=== PATIENT | female | born 1950 | race Hispanic/Latino ===

== ENCOUNTER 2020-05-13 20:21 | Inpatient (IN) | payer MEDICARE ==
[2020-05-13] MEDS ORDERED: SODIUM CHLORIDE 0.9% 1000 ML IV SOLN IV ONE (23:22)
[2020-05-13] MEDS ORDERED: metroNIDAZOLE/NS 500 MG/100 ML 500 MG/100 ML BAG IV ONE (23:23)
--- NOTE | 2020-05-13 23:25 | Emergency Department Report ---
ED Abdominal Pain HPI - General Chief Complaint: Nausea/Vomiting/Diarrhea Stated Complaint: DIARRHEA/BILATERAL LEG WEAKNESS PUI?: No Time Seen by Provider: 05/13/20 23:21 Source: patient Mode of arrival: Ambulatory Limitations: No Limitations - History of Present Illness Initial Comments: Patient is a 69-year-old female that presents emergency room with complaints of abdominal pain and diarrhea x4 weeks. Patient states her symptoms are worsening. Patient states 2 weeks ago she called her primary care he told her to take Imodium. Patient states the Imodium had no changes. Patient denies blood in her stool. Patient denies nausea vomiting. Patient states her abdominal pain is a 10 out of 10. Patient states the abdominal pain is generalized and nonradiating. Patient states the abdominal pain is worse with movement better with rest. Patient denies fever and chills. Patient denies chest pain or shortness of breath. Patient denies recent travel. Patient denies recent international travel. Patient denies exposure to the novel coronavirus. Patient denies sick contacts. Patient denies fever and chills. Patient denies cough. Patient denies coming in contact with anybody with symptoms of the novel coronavirus. MD Complaint: abdominal pain -: Sudden Location: diffuse Radiation: none Migration to: no migration Severity: severe Severity scale (0 -10): 10 Quality: stabbing Consistency: constant Improves With: rest Worsens With: movement Associated Symptoms: diarrhea. denies: nausea, vomiting, fever, chills, constipation, dysuria, hematemesis, hematochezia, melena, hematuria, syncope Treatments Prior to Arrival: other - Related Data LMP (females 10-50): unknown Allergies Allergy/AdvReac Type Severity Reaction Status Date / Time morphine Allergy Itching Verified 05/13/20 22:58 Penicillins Allergy Hives Verified 05/13/20 22:58 ED Review of Systems ROS: Stated complaint: DIARRHEA/BILATERAL LEG WEAKNESS Other details as noted in HPI Constitutional: denies: chills, fever Eyes: denies: eye pain, eye discharge, vision change ENT: denies: ear pain, throat pain Respiratory: denies: cough, shortness of breath, wheezing Cardiovascular: denies: chest pain, palpitations Endocrine: no symptoms reported Gastrointestinal: abdominal pain, diarrhea. denies: nausea, vomiting Genitourinary: denies: urgency, dysuria, discharge Musculoskeletal: denies: back pain, joint swelling, arthralgia Skin: denies: rash, lesions Neurological: denies: headache, weakness, paresthesias Psychiatric: denies: anxiety, depression Hematological/Lymphatic: denies: easy bleeding, easy bruising ED Past Medical Hx - Past Medical History Previous Medical History?: Yes Hx Hypertension: Yes Hx Diabetes: Yes Additional medical history: High cholesterol - Surgical History Past Surgical History?: No - Family History Family history: no significant - Social History Smoking Status: Former Smoker Substance Use Type: None ED Physical Exam - General Limitations: No Limitations General appearance: alert, in no apparent distress - Head Head exam: Present: atraumatic, normocephalic - Eye Eye exam: Present: normal appearance - ENT ENT exam: Present: mucous membranes moist - Neck Neck exam: Present: normal inspection - Respiratory Respiratory exam: Present: normal lung sounds bilaterally. Absent: respiratory distress - Cardiovascular Cardiovascular Exam: Present: regular rate, normal rhythm. Absent: systolic murmur, diastolic murmur, rubs, gallop - GI/Abdominal GI/Abdominal exam: Present: soft, tenderness, normal bowel sounds - Extremities Exam Extremities exam: Present: normal inspection - Back Exam Back exam: Present: normal inspection - Neurological Exam Neurological exam: Present: alert, oriented X3 - Psychiatric Psychiatric exam: Present: normal affect, normal mood - Skin Skin exam: Present: warm, dry, intact, normal color. Absent: rash ED Course Vital Signs 05/13/20 05/13/20 05/13/20 22:54 23:11 23:15 Temperature 98.7 F Pulse Rate 91 H 93 H Respiratory 18 23 Rate Blood Pressure 77/45 94/50 94/49 O2 Sat by Pulse 95 87 97 Oximetry 05/13/20 05/13/20 05/13/20 23:17 23:30 23:45 Temperature Pulse Rate 96 H 91 H 90 Respiratory 20 23 25 H Rate Blood Pressure 94/49 94/49 113/53 O2 Sat by Pulse 99 98 98 Oximetry 05/14/20 05/14/20 05/14/20 00:00 00:15 00:30 Temperature Pulse Rate 95 H 93 H 96 H Respiratory 22 23 21 Rate Blood Pressure 126/60 121/56 134/66 O2 Sat by Pulse 98 99 96 Oximetry 05/14/20 00:45 Temperature Pulse Rate 95 H Respiratory 23 Rate Blood Pressure 131/68 O2 Sat by Pulse 99 Oximetry - Reevaluation(s) Reevaluation #1: Blood pressure rechecked and is still low. Sepsis protocol ordered. Patient will be given empiric antibiotics and fluids. 05/13/20 23:33 Reevaluation #2: Blood pressure has improved. Patient states he is feeling a little bit better. 05/14/20 00:01 Reevaluation #3: Patient is still receiving fluid in the bases blood pressure has stabilized. Patient complaining of a headache. Patient was given a low-dose of Dilaudid. 05/14/20 00:34 Reevaluation #4: Patient states her pain has resolved. Patient states her headache is resolved. Patient's blood pressure better. Patient's blood pressure has dramatically improved. Patient still on cardiac care nurse. I discussed all results with patient. I discussed plan of care with patient. Patient agrees with plan of care and admission. Patient to be admitted to the hospitalist service. 05/14/20 01:49 - Consultations Consultation #1: Hospitalist consulted for admission. Hospitalist to admit patient. 05/14/20 01:50 ED Medical Decision Making - Lab Data Result diagrams: 05/13/20 23:18 05/13/20 23:18 - Radiology Data Radiology results: report reviewed - Medical Decision Making Patient is a 69-year-old female who presents emergency room with complaints of abdominal pain and diarrhea for 4 weeks. Patient found to be hypotensive. After initial evaluation and patient was found to be hypotensive, the patient had a sepsis protocol initiated. Patient given prophylactic antibiotics and fluids. Patient given fluids and her blood pressure improved. Patient given Dilaudid for pain once her blood pressure improved. Patient's pain was controlled with Dilaudid. Patient responded well to fluids and antibiotics. Patient had a CT scan which showed colitis. Patient had labs done which were consistent with acute renal failure and elevated WBC. Patient admitted to the hospital service for further evaluation treatment. - Differential Diagnosis Diverticulitis, abdominal pain, renal failure/sepsis, hypotension, diarrhea Critical Care Time: Yes Critical care time in (mins) excluding proc time.: 45 Critical care attestation.: If time is entered above; I have spent that time in minutes in the direct care of this critically ill patient, excluding procedure time. Critical Care Time: 45 MINUTES ED Disposition Clinical Impression: Dehydration, Lactic acid acidosis, Colitis Renal failure Qualifiers: Renal failure chronicity: acute Acute renal failure type: unspecified Qualified Code(s): N17.9 - Acute kidney failure, unspecified Abdominal pain Qualifiers: Abdominal location: generalized Qualified Code(s): R10.84 - Generalized abdominal pain Sepsis Qualifiers: Sepsis type: sepsis due to unspecified organism Sepsis acute organ dysfunction status: with acute organ dysfunction Severe sepsis acute organ dysfunction type: acute renal failure Acute renal failure type: unspecified Severe sepsis shock status: without septic shock Qualified Code(s): A41.9 - Sepsis, unspecified organism Diarrhea Qualifiers: Diarrhea type: unspecified type Qualified Code(s): R19.7 - Diarrhea, unspecified Hypotension Qualifiers: Hypotension type: unspecified hypotension type Qualified Code(s): I95.9 - Hypotension, unspecified Disposition: DC-09 OP ADMIT IP TO THIS HOSP Is pt being admited?: Yes Does the pt Need Aspirin: No Condition: Critical Time of Disposition: 01:59
[2020-05-13 23:46] LABS: Hematocrit 35.9 % (30.3-42.9); Hemoglobin 11.8 gm/dl (10.1-14.3); Mean Corpuscular HGB Conc 33 % (30-34); Mean Corpuscular Volume 91 fl (79-97); Platelet Count 269 K/mm3 (140-440); Red Blood Count 3.95 M/mm3 (3.65-5.03); Red Cell Distribution Width 14.3 % (13.2-15.2)
[2020-05-13 23:51] LABS: Basophils % (Auto) 0.1 % (0.0-1.8); Eosinophils # (Auto) 0.3 K/mm3 (0.0-0.4); Eosinophils % (Auto) 1.1 % (0.0-4.3); Lymphocytes # (Auto) 2.4 K/mm3 (1.2-5.4); Lymphocytes % (Auto) 7.8 % (13.4-35.0); Monocytes % (Auto) 6.5 % (0.0-7.3)
[2020-05-14 00:01] LABS: Albumin 3.1 g/dL (3.9-5); Calcium 8.7 mg/dL (8.4-10.2)
[2020-05-14] MEDS ORDERED: HYDROmorphone 1 MG/1 ML INJ IV ONE ×3 (00:34→23:11)
[2020-05-14] MEDS ORDERED: ONDANSETRON 4 MG/2 ML INJ ONE (00:46)
[2020-05-14] MEDS ORDERED: ONDANSETRON 4 MG/2 ML INJ IV ONE (00:48)
--- NOTE | 2020-05-14 01:38 | Cat Scan Report ---
CT abdomen pelvis wo con INDICATION: Patient complains of abdominal pain and diarrhea.. TECHNIQUE: All CT scans at this location are performed using the following dose modulation technique: Automated exposure control. Helical slices were obtained through the abdomen and pelvis. No contrast is adminis tered. COMPARISON: None available. FINDINGS: Abdomen: No acute abnormality is seen in the lower chest. The liver, spleen, pancreas, adrenal glands , and kidneys show no acute abnormality. There is cholelithiasis. There is abnormal wall thickening noted from the splenic flexure of the colon to the rectum character istic of colitis. There is mild pericolonic inflammation. There is no abscess. There is no free air. Atherosclerotic calcifications are noted in the aorta and iliac arteries. Pelvis: Phleboliths are noted. The urinary bladder is distended. There are no abnormal fluid collecti ons. On review of bone windows, no acute osseous abnormalities are seen. IMPRESSION: 1. There is colitis from the splenic flexure to the rectum. Signer Name: Manfred Dela Cruz MD Signed: 05/14/2020 1:34 AM Workstation Name: [id number]
[2020-05-14] MEDS ORDERED: SODIUM CHLORIDE 0.9% 1000 ML 1,000 ML IV ONE ×2 (02:09→02:29)
[2020-05-14 02:21] LABS: Bilirubin,Urine NEG (Negative); Blood,Urine SM (Negative); Color,Urine Yellow (Yellow); Hyaline Casts,Urine 1 /LPF; Mucus,Urine FEW /HPF; Protein,Urine <15 mg/dL mg/dL (Negative); Urobilinogen,Urine < 2.0 mg/dL (<2.0); WBC,Urine < 1.0 /HPF (0.0-6.0)
[2020-05-14] MEDS ORDERED: DEXTROSE 50% IN WATER (25GM) 50 ML SYRINGE IV PRN (02:37)
[2020-05-14] MEDS ORDERED: SODIUM CHLORIDE 0.9% 1000 ML 1,000 ML IV SCH (02:45)
--- NOTE | 2020-05-14 02:49 | History and Physical Report ---
History of Present Illness Date of examination: 05/14/20 Date of admission: 05/14/2020 Chief complaint: Abdominal pain Diarrhea History of present illness: 69-year-old female presenting to the emergency room today complaining of abdominal pain and diarrhea that has been ongoing for about 4 weeks. Stool is nonbloody. She denies any nausea vomiting. No chest pain or shortness of breath and no headaches or dizziness. Patient denies using any antibiotics over the past few weeks. She got in touch with her primary care physician who recommended she should take some Imodium about 2 weeks ago. Patient indicates symptoms are gotten worse over the past few days. She has been having intermittent low-grade fever at home. Patient denies any sick contacts and no recent travel, she denies contact with anyone with COVID-19. She was found to be slightly hypotensive upon arrival in the emergency room. Work-up in the emergency room today including CT scan of the abdomen and pelvis reveals colitis, labs reveals leukocytosis of about 30. Lactic acid was also found to be elevated. Patient has been started on empiric IV antibiotics and IV fluid. Past History Past Medical History: diabetes, hypertension Past Surgical History: No surgical history Social history: smoking (Former smoker) Family history: no significant family history Medications and Allergies Allergies Allergy/AdvReac Type Severity Reaction Status Date / Time morphine Allergy Itching Verified 05/13/20 22:58 Penicillins Allergy Hives Verified 05/13/20 22:58 Active Meds: Active Medications Acetaminophen (Tylenol) 650 mg PO Q4H PRN PRN Reason: Pain MILD(1-3)/Fever >100.5/CORDOVA Dextrose (D50w (25gm) Syringe) 50 ml IV Q30MIN PRN; Protocol PRN Reason: Hypoglycemia Sodium Chloride (Nacl 0.9% 1000 Ml) 1,000 mls @ 999 mls/hr IV BOLUS ONE Stop: 05/14/20 03:09 Sodium Chloride (Nacl 0.9% 1000 Ml) 1,000 mls @ 250 mls/hr IV ONCE ONE Stop: 05/14/20 06:28 Sodium Chloride (Nacl 0.9% 1000 Ml) 1,000 mls @ 125 mls/hr IV DIRECT GINI Levofloxacin/Dextrose (Levaquin 750mg/150ml) 750 mg in 150 mls @ 100 mls/hr IV Q24HR GINI; Protocol Metronidazole (Flagyl 500 Mg/100 Ml) 500 mg in 100 mls @ 100 mls/hr IV Q8HR GINI; Protocol Insulin Human Lispro (Humalog) 0 unit SUB-Q ACHS GINI; Protocol Ondansetron HCl (Zofran) 4 mg IV Q8H PRN PRN Reason: Nausea And Vomiting Sodium Chloride (Sodium Chloride Flush Syringe 10 Ml) 10 ml IV BID GINI Sodium Chloride (Sodium Chloride Flush Syringe 10 Ml) 10 ml IV PRN PRN PRN Reason: LINE FLUSH Review of Systems Constitutional: fever, no chills Ears, nose, mouth and throat: no nasal congestion, no sore throat Cardiovascular: no chest pain, no palpitations Respiratory: no cough, no shortness of breath Gastrointestinal: abdominal pain, diarrhea, no nausea, no vomiting Genitourinary Female: no pelvic pain, no flank pain, no dysuria, no hematuria Musculoskeletal: no neck pain, no low back pain Integumentary: no rash, no pruritis Neurological: no headaches, no confusion Psychiatric: no anxiety, no depression Exam - Constitutional Vitals: Temp Pulse Resp BP Pulse Ox 98.7 F 95 H 23 131/68 99 05/13/20 22:54 05/14/20 00:45 05/14/20 00:45 05/14/20 00:45 05/14/20 00:45 General appearance: Present: no acute distress, well-nourished - EENT Eyes: Present: PERRL, EOM intact. Absent: scleral icterus ENT: hearing intact, clear oral mucosa, dentition normal - Neck Neck: Present: supple, normal ROM - Respiratory Respiratory effort: normal Respiratory: bilateral: CTA - Cardiovascular Rhythm: regular Heart Sounds: Present: S1 & S2. Absent: gallop, systolic murmur, diastolic murmur, rub - Extremities Extremities: no ischemia, pulses intact, pulses symmetrical, No edema, Full ROM Peripheral Pulses: within normal limits - Abdominal General gastrointestinal: Present: soft, non-tender, non-distended, normal bowel sounds. Absent: mass - Integumentary Integumentary: Present: clear, warm, dry. Absent: rash - Musculoskeletal Musculoskeletal: strength equal bilaterally - Psychiatric Psychiatric: appropriate mood/affect, intact judgment & insight, memory intact, cooperative - Neurologic Neurologic: CNII-XII intact, no focal deficits, moves all extremities HEART Score - HEART Score Troponin: WBC 30.6 K/mm3 (4.5-11.0) H 05/13/20 23:18 RBC 3.95 M/mm3 (3.65-5.03) 05/13/20 23:18 Hgb 11.8 gm/dl (10.1-14.3) 05/13/20 23:18 Hct 35.9 % (30.3-42.9) 05/13/20 23:18 MCV 91 fl (79-97) 05/13/20 23:18 MCH 30 pg (28-32) 05/13/20 23:18 MCHC 33 % (30-34) 05/13/20 23:18 RDW 14.3 % (13.2-15.2) 05/13/20 23:18 Plt Count 269 K/mm3 (140-440) 05/13/20 23:18 Lymph % (Auto) 7.8 % (13.4-35.0) L 05/13/20 23:18 Hinds % (Auto) 6.5 % (0.0-7.3) 05/13/20 23:18 Eos % (Auto) 1.1 % (0.0-4.3) 05/13/20 23:18 Baso % (Auto) 0.1 % (0.0-1.8) 05/13/20 23:18 Lymph # (Auto) 2.4 K/mm3 (1.2-5.4) 05/13/20 23:18 Hinds # (Auto) 2.0 K/mm3 (0.0-0.8) H 05/13/20 23:18 Eos # (Auto) 0.3 K/mm3 (0.0-0.4) 05/13/20 23:18 Baso # (Auto) 0.0 K/mm3 (0.0-0.1) 05/13/20 23:18 Seg Neutrophils % 84.5 % (40.0-70.0) H 05/13/20 23:18 Seg Neutrophils # 25.9 K/mm3 (1.8-7.7) H 05/13/20 23:18 Sodium 125 mmol/L (137-145) L 05/13/20 23:18 Potassium 4.1 mmol/L (3.6-5.0) 05/13/20 23:18 Chloride 91.9 mmol/L (98-107) L 05/13/20 23:18 Carbon Dioxide 12 mmol/L (22-30) L 05/13/20 23:18 Anion Gap 25 mmol/L 05/13/20 23:18 BUN 63 mg/dL (7-17) H 05/13/20 23:18 Creatinine 3.3 mg/dL (0.6-1.2) H 05/13/20 23:18 Estimated GFR 14 ml/min 05/13/20 23:18 BUN/Creatinine Ratio 19 % 05/13/20 23:18 Glucose 261 mg/dL (65-100) H 05/13/20 23:18 Lactic Acid 2.40 mmol/L (0.7-2.0) H* 05/14/20 00:45 Calcium 8.7 mg/dL (8.4-10.2) 05/13/20 23:18 Total Bilirubin 0.30 mg/dL (0.1-1.2) 05/13/20 23:18 AST 49 units/L (5-40) H 05/13/20 23:18 ALT 19 units/L (7-56) 05/13/20 23:18 Alkaline Phosphatase 102 units/L (35-129) 05/13/20 23:18 Total Protein 6.6 g/dL (6.3-8.2) 05/13/20 23:18 Albumin 3.1 g/dL (3.9-5) L 05/13/20 23:18 Albumin/Globulin Ratio 0.9 % 05/13/20 23:18 Urine Color Yellow (Yellow) 05/14/20 02:08 Urine Turbidity Clear (Clear) 05/14/20 02:08 Urine pH 5.0 (5.0-7.0) 05/14/20 02:08 Ur Specific [place] 1.014 (1.003-1.030) 05/14/20 02:08 Urine Protein <15 mg/dl mg/dL (Negative) 05/14/20 02:08 Urine Glucose (UA) 50 mg/dL (Negative) 05/14/20 02:08 Urine Ketones Neg mg/dL (Negative) 05/14/20 02:08 Urine Blood Sm (Negative) 05/14/20 02:08 Urine Nitrite Neg (Negative) 05/14/20 02:08 Urine Bilirubin Neg (Negative) 05/14/20 02:08 Urine Urobilinogen < 2.0 mg/dL (<2.0) 05/14/20 02:08 Ur Leukocyte Esterase Neg (Negative) 05/14/20 02:08 Urine WBC (Auto) < 1.0 /HPF (0.0-6.0) 05/14/20 02:08 Urine RBC (Auto) 2.0 /HPF (0.0-6.0) 05/14/20 02:08 U Epithel Cells (Auto) < 1.0 /HPF (0-13.0) 05/14/20 02:08 Hyaline Casts 1 /LPF 05/14/20 02:08 Urine Mucus Few /HPF 05/14/20 02:08 Results - Labs CBC & Chem 7: 05/13/20 23:18 05/13/20 23:18 Labs: Abnormal lab results 05/13/20 05/13/20 05/13/20 Range/Units 23:18 23:18 23:25 WBC 30.6 H (4.5-11.0) K/mm3 Lymph % (Auto) 7.8 L (13.4-35.0) % Hinds # (Auto) 2.0 H (0.0-0.8) K/mm3 Seg Neutrophils % 84.5 H (40.0-70.0) % Seg Neutrophils # 25.9 H (1.8-7.7) K/mm3 Sodium 125 L (137-145) mmol/L Chloride 91.9 L (98-107) mmol/L Carbon Dioxide 12 L (22-30) mmol/L BUN 63 H (7-17) mg/dL Creatinine 3.3 H (0.6-1.2) mg/dL Glucose 261 H (65-100) mg/dL Lactic Acid 2.20 H* (0.7-2.0) mmol/L AST 49 H (5-40) units/L Albumin 3.1 L (3.9-5) g/dL 05/14/20 Range/Units 00:45 WBC (4.5-11.0) K/mm3 Lymph % (Auto) (13.4-35.0) % Hinds # (Auto) (0.0-0.8) K/mm3 Seg Neutrophils % (40.0-70.0) % Seg Neutrophils # (1.8-7.7) K/mm3 Sodium (137-145) mmol/L Chloride (98-107) mmol/L Carbon Dioxide (22-30) mmol/L BUN (7-17) mg/dL Creatinine (0.6-1.2) mg/dL Glucose (65-100) mg/dL Lactic Acid 2.40 H* (0.7-2.0) mmol/L AST (5-40) units/L Albumin (3.9-5) g/dL Assessment and Plan - Patient Problems (1) Abdominal pain Current Visit: Yes Status: Acute Qualifiers: Abdominal location: generalized Qualified Code(s): R10.84 - Generalized abdominal pain Plan to address problem: Possibly secondary to colitis. Patient placed on IV analgesic medication. (2) Colitis Current Visit: Yes Status: Acute Plan to address problem: Patient commenced on empiric IV antibiotics and IV fluid. He has a leukocytosis of about 30. We also place a consult to infectious disease for evaluation and recommendation. (3) Diarrhea Current Visit: Yes Status: Acute Qualifiers: Diarrhea type: unspecified type Qualified Code(s): R19.7 - Diarrhea, unspecified Plan to address problem: Secondary to the colitis. We will continue on IV fluid. (4) Hypotension Current Visit: Yes Status: Acute Qualifiers: Hypotension type: unspecified hypotension type Qualified Code(s): I95.9 - Hypotension, unspecified Plan to address problem: Secondary to volume loss. We will monitor vital signs closely and continue IV fluid. (5) Renal failure Current Visit: Yes Status: Acute Qualifiers: Renal failure chronicity: acute Acute renal failure type: unspecified Qualified Code(s): N17.9 - Acute kidney failure, unspecified Plan to address problem: Possibly prerenal. Will monitor BUN and creatinine. (6) Sepsis Current Visit: Yes Status: Acute Qualifiers: Sepsis type: sepsis due to unspecified organism Sepsis acute organ dysfunction status: with acute organ dysfunction Severe sepsis acute organ dysfunction type: acute renal failure Acute renal failure type: unspecified Severe sepsis shock status: without septic shock Qualified Code(s): A41.9 - Sepsis, unspecified organism; R65.20 - Severe sepsis without septic shock; N17.9 - Acute kidney failure, unspecified Plan to address problem: Secondary to colitis. Continue on IV fluid and antibiotics. (7) DVT prophylaxis Current Visit: Yes Status: Acute Plan to address problem: Patient placed on subcutaneous heparin (8) Full code status Current Visit: Yes Status: Acute
[2020-05-14] MEDS ORDERED: SODIUM CHLORIDE 0.9% 1000 ML 2,000 ML ONE (03:14)
[2020-05-14] MEDS ORDERED: HYDROmorphone 1 MG/1 ML INJ ONE ×2 (03:55→16:57)
[2020-05-14] MEDS ORDERED: metroNIDAZOLE/NS 500 MG/100 ML 500 MG/100 ML BAG IV ONE ×2 (07:12→17:04)
[2020-05-14] MEDS: metroNIDAZOLE/NS 500 MG/100 ML 500 MG/100 ML BAG IV SCH ×3 (07:17→23:28)
[2020-05-14] MEDS: INSULIN LISPRO 100 UNIT/ML VIAL 3 mL SUB-Q SCH ×4 (08:23→23:10)
--- NOTE | 2020-05-14 08:48 | Progress Note ---
Assessment and Plan Assessment and plan: --Acute colitis Current Visit: Yes Status: Acute Plan to address problem: N.p.o. empiric IV antibiotics and IV fluid. GI consult, ID consulted by admitting physician --Leukocytosis; WBC 30 K Current Visit: Yes Status: Acute Plan to address problem: secondary to sepsis, acute colitis Follow cultures, trend leukocyte count --Abdominal pain Current Visit: Yes Status: Acute Plan to address problem: Secondary to colitis, pain medications Treat the underlying cause -- Hypotension; present on admission Current Visit: Yes Status: Acute Plan to address problem: Blood pressures reasonable range We will managed with IV fluids Supportive care --Hyponatremia; Current Visit: Yes Status: Acute Plan to address problem: IV normal saline, closely monitor electrolytes --Moderate malnutrition; due to underlying colitis Treat the underlying cause Supportive care nutrition supplements when patient is able to take oral --Acute kidney injury Current Visit: Yes Status: Acute Plan to address problem: Possibly prerenal acidemia, vasomotor nephropathy. IV hydration, monitor renal function, avoid nephrotoxins Nephrology consult --DVT prophylaxis Current Visit: Yes Status: Acute Plan to address problem: Patient placed on subcutaneous heparin --Full code status Current Visit: Yes Status: Acute Monitor closely and adjust management as needed Plan of care reviewed with the patient and her nurse N.p.o. status except for meds Downgrade to MedSur floor Advance care plan Spent 35 minutes History Interval history: I have seen and examined the patient at the bedside this afternoon awaiting in ER for room assignment Patient complains of some abdominal pain and headache Initially was hypotensive now blood pressures reasonable level Alert and awake in mild distress Vital signs reviewed Hospitalist Physical - Constitutional Vitals: Temp Pulse Resp BP Pulse Ox 98.7 F 95 H 15 120/52 97 05/13/20 22:54 05/14/20 07:45 05/14/20 07:45 05/14/20 07:45 05/14/20 07:45 General appearance: Present: no acute distress, well-nourished - EENT Eyes: Present: PERRL, EOM intact - Neck Neck: Present: supple, normal ROM - Respiratory Respiratory effort: normal Respiratory: bilateral: diminished, negative: rales, rhonchi, wheezing - Cardiovascular Rhythm: regular Heart Sounds: Present: S1 & S2 - Extremities Extremities: no ischemia Extremity abnormal: edema - Abdominal General gastrointestinal: soft, tender (No guarding no rigidity) - Integumentary Integumentary: Present: clear, warm - Psychiatric Psychiatric: appropriate mood/affect, cooperative - Neurologic Neurologic: moves all extremities Results - Labs CBC & Chem 7: 05/14/20 09:17 05/14/20 15:41 Labs: Laboratory Last Values WBC 30.6 K/mm3 (4.5-11.0) H 05/13/20 23:18 RBC 3.95 M/mm3 (3.65-5.03) 05/13/20 23:18 Hgb 11.8 gm/dl (10.1-14.3) 05/13/20 23:18 Hct 35.9 % (30.3-42.9) 05/13/20 23:18 MCV 91 fl (79-97) 05/13/20 23:18 MCH 30 pg (28-32) 05/13/20 23:18 MCHC 33 % (30-34) 05/13/20 23:18 RDW 14.3 % (13.2-15.2) 05/13/20 23:18 Plt Count 269 K/mm3 (140-440) 05/13/20 23:18 Lymph % (Auto) 7.8 % (13.4-35.0) L 05/13/20 23:18 [place] % (Auto) 6.5 % (0.0-7.3) 05/13/20 23:18 Eos % (Auto) 1.1 % (0.0-4.3) 05/13/20 23:18 Baso % (Auto) 0.1 % (0.0-1.8) 05/13/20 23:18 Lymph # (Auto) 2.4 K/mm3 (1.2-5.4) 05/13/20 23:18 [place] # (Auto) 2.0 K/mm3 (0.0-0.8) H 05/13/20 23:18 Eos # (Auto) 0.3 K/mm3 (0.0-0.4) 05/13/20 23:18 Baso # (Auto) 0.0 K/mm3 (0.0-0.1) 05/13/20 23:18 Seg Neutrophils % 84.5 % (40.0-70.0) H 05/13/20 23:18 Seg Neutrophils # 25.9 K/mm3 (1.8-7.7) H 05/13/20 23:18 Sodium 125 mmol/L (137-145) L 05/13/20 23:18 Potassium 4.1 mmol/L (3.6-5.0) 05/13/20 23:18 Chloride 91.9 mmol/L (98-107) L 05/13/20 23:18 Carbon Dioxide 12 mmol/L (22-30) L 05/13/20 23:18 Anion Gap 25 mmol/L 05/13/20 23:18 BUN 63 mg/dL (7-17) H 05/13/20 23:18 Creatinine 3.3 mg/dL (0.6-1.2) H 05/13/20 23:18 Estimated GFR 14 ml/min 05/13/20 23:18 BUN/Creatinine Ratio 19 % 05/13/20 23:18 Glucose 261 mg/dL (65-100) H 05/13/20 23:18 POC Glucose 135 mg/dL (70-105) H 05/14/20 08:32 Lactic Acid 1.90 mmol/L (0.7-2.0) 05/14/20 05:35 Calcium 8.7 mg/dL (8.4-10.2) 05/13/20 23:18 Total Bilirubin 0.30 mg/dL (0.1-1.2) 05/13/20 23:18 AST 49 units/L (5-40) H 05/13/20 23:18 ALT 19 units/L (7-56) 05/13/20 23:18 Alkaline Phosphatase 102 units/L (35-129) 05/13/20 23:18 Total Protein 6.6 g/dL (6.3-8.2) 05/13/20 23:18 Albumin 3.1 g/dL (3.9-5) L 05/13/20 23:18 Albumin/Globulin Ratio 0.9 % 05/13/20 23:18 Urine Color Yellow (Yellow) 05/14/20 02:08 Urine Turbidity Clear (Clear) 05/14/20 02:08 Urine pH 5.0 (5.0-7.0) 05/14/20 02:08 Ur Specific [place] 1.014 (1.003-1.030) 05/14/20 02:08 Urine Protein <15 mg/dl mg/dL (Negative) 05/14/20 02:08 Urine Glucose (UA) 50 mg/dL (Negative) 05/14/20 02:08 Urine Ketones Neg mg/dL (Negative) 05/14/20 02:08 Urine Blood Sm (Negative) 05/14/20 02:08 Urine Nitrite Neg (Negative) 05/14/20 02:08 Urine Bilirubin Neg (Negative) 05/14/20 02:08 Urine Urobilinogen < 2.0 mg/dL (<2.0) 05/14/20 02:08 Ur Leukocyte Esterase Neg (Negative) 05/14/20 02:08 Urine WBC (Auto) < 1.0 /HPF (0.0-6.0) 05/14/20 02:08 Urine RBC (Auto) 2.0 /HPF (0.0-6.0) 05/14/20 02:08 U Epithel Cells (Auto) < 1.0 /HPF (0-13.0) 05/14/20 02:08 Hyaline Casts 1 /LPF 05/14/20 02:08 Urine Mucus Few /HPF 05/14/20 02:08 Microbiology: Microbiology 05/13/20 23:25 Peripheral/Venous Blood Culture - Preliminary Culture in Progress 05/13/20 23:25 Peripheral/Venous Blood Culture - Preliminary Culture in Progress Mix/IV: IV Catheter Type [Left Hand] INT / Saline Lock IV Catheter Type [Left INT / Saline Lock Antecubital] Active Medications - Current Medications Current Medications: Generic Name Dose Route Start Last Admin Trade Name Freq PRN Reason Stop Dose Admin Acetaminophen 650 mg 05/14/20 02:37 Tylenol PO Q4H PRN Pain MILD(1-3)/Fever >100.5/CORDOVA Dextrose 50 ml 05/14/20 02:37 D50w (25gm) Syringe IV Q30MIN PRN Hypoglycemia Protocol Heparin Sodium (Porcine) 5,000 unit 05/14/20 14:00 Heparin SUB-Q Q8HR G[facility]I Sodium Chloride 1,000 mls @ 125 mls/hr 05/14/20 02:45 Nacl 0.9% 1000 Ml IV DIRECT GINI Metronidazole 500 mg in 100 mls @ 100 mls/hr 05/14/20 06:00 10/23/20 07:17 Flagyl 500 Mg/100 Ml IV 100 mls/hr Q8HR GINI Administration Protocol Levofloxacin/Dextrose 500 mg in 100 mls @ 100 mls/hr 05/15/20 10:00 Levaquin 500mg/100ml IV Q48HR [facility] Protocol Insulin Human Lispro 0 unit 05/14/20 07:30 05/14/20 08:23 Humalog SUB-Q Not Given ACHS [facility] Protocol Ondansetron HCl 4 mg 05/14/20 02:37 Zofran IV Q8H PRN Nausea And Vomiting Sodium Chloride 10 ml 05/14/20 10:00 Sodium Chloride Flush Syringe 10 Ml IV BID GINI Sodium Chloride 10 ml 05/14/20 02:37 Sodium Chloride Flush Syringe 10 Ml IV PRN PRN LINE FLUSH
--- NOTE | 2020-05-14 09:42 | Consultation ---
History of Present Illness - Reason for Consult Consult date: 05/14/20 acute renal failure, hyponatremia - History of Present Illness The patient is a 69 YO female with history significant for Obesity, DM type 2 and HTN who presented to [facility] ED 05/13/20 with complains of diarrhea and abdominal discomfort for the past 4 weeks. Stool are watery, nonbloody and some relief with Imodium. She also reports intermittent low-grade fever at home. Pt denies any nausea, vomiting, dizziness, syncope, chills, chest pain, shortness of breath or any antibiotics over the past few weeks. Patient denies any sick contacts, no recent travel or contact with anyone with COVID-19. Initial BP was 77/45. CT scan of the abdomen and pelvis revealed Colitis. Labs significant for WBC 30, Lactic acid 2.2, Creat 3.3, BUN 63, Sodium 125 and bicarb 12. Nephrology was consulted for further evaluation. Past History Past Medical History: diabetes, hypertension Past Surgical History: No surgical history Social history: smoking (Former smoker) Family history: no significant family history Medications and Allergies Allergies Allergy/AdvReac Type Severity Reaction Status Date / Time morphine Allergy Itching Verified 05/13/20 22:58 Penicillins Allergy Hives Verified 05/13/20 22:58 Active Meds: Active Medications Acetaminophen (Tylenol) 650 mg PO Q4H PRN PRN Reason: Pain MILD(1-3)/Fever >100.5/CORDOVA Dextrose (D50w (25gm) Syringe) 50 ml IV Q30MIN PRN; Protocol PRN Reason: Hypoglycemia Heparin Sodium (Porcine) (Heparin) 5,000 unit SUB-Q Q8HR [facility]I Sodium Chloride (Nacl 0.9% 1000 Ml) 1,000 mls @ 125 mls/hr IV DIRECT GINI Metronidazole (Flagyl 500 Mg/100 Ml) 500 mg in 100 mls @ 100 mls/hr IV Q8HR [facility]I; Protocol Last Admin: 05/14/20 07:17 Dose: 100 mls/hr Documented by: Levofloxacin/Dextrose (Levaquin 500mg/100ml) 500 mg in 100 mls @ 100 mls/hr IV Q48HR [facility]I; Protocol Insulin Human Lispro (Humalog) 0 unit SUB-Q ACHS [facility]I; Protocol Last Admin: 05/14/20 08:23 Dose: Not Given Documented by: Ondansetron HCl (Zofran) 4 mg IV Q8H PRN PRN Reason: Nausea And Vomiting Sodium Chloride (Sodium Chloride Flush Syringe 10 Ml) 10 ml IV BID GINI Sodium Chloride (Sodium Chloride Flush Syringe 10 Ml) 10 ml IV PRN PRN PRN Reason: LINE FLUSH Review of Systems Constitutional: fever, no weight loss, no weight gain, no chills, no anorexia, no weakness Breasts: deferred Cardiovascular: high blood pressure, no chest pain, no edema, no syncope, no lightheadedness, no shortness of breath, no leg edema Respiratory: no cough, no hemoptysis, no shortness of breath, no dyspnea on exertion Gastrointestinal: abdominal pain, diarrhea, no nausea, no vomiting, no hemate mesis, no melena Genitourinary Female: no dysuria, no hematuria Rectal: no bleeding Integumentary: no sores, no wounds, no jaundice Neurological: no seizures, no syncope, no change in speech, no change in mentation, no confusion, no memory loss Exam - Vital Signs Vital signs: Vital Signs Temp Pulse Resp BP Pulse Ox 98.7 F 91 H 18 77/45 95 05/13/20 22:54 05/13/20 22:54 05/13/20 22:54 05/13/20 22:54 05/13/20 22:54 Results - Lab Results 05/14/20 09:17 05/14/20 09:17 Most recent lab results Calcium 8.7 mg/dL (8.4-10.2) 05/13/20 23:18 Assessment and Plan 1. Acute kidney injury: Vasomotor nephropathy in the setting of volume depletion and hypotension. CT abdomen negative for hydro. Urine studies ordered. Monitor renal function. Creatinine level is improving. Avoid nephrotoxic agents. Meds dosage based on GFR. 2. FEN: Acute Hyponatremia, 2/2 volume depletion, improving, monitor. Initial corrected Sodium level was 129. Anion-gap Metabolic acidosis, 2/2 Lactic acdiosis, monitor. Monitor lytes. 3. Colitis: On Levofloxacin and Flagyl. Per primary. 4. Severe sepsis, POA: Continue abx and follow cultures. 5. DM type 2: Accuchecks. 6. Hypertension: Hold BP meds due to initial hypotension. Monitor. Subjective: Patient was seen and examined at the bedside. - General Appearance General appearance: well-developed, well-nourished, appears stated age, obese, no distress HEENT: ATNC, KENNETH, hearing intact, vision intact Neck: supple Respiratory: ctab Cardiology: regular, S1S2, no murmur Gastrointestinal: normoactive bowel sounds, no tenderness, not distended Integumentary: no obvious rash Neurologic: no asterixis, alert and oriented x3, able to move extremities Ext: no edema noted Psychiatric: cooperative
[2020-05-14 09:47] LABS: Hematocrit 33.6 % (30.3-42.9); Hemoglobin 11.5 gm/dl (10.1-14.3); Mean Corpuscular HGB Conc 34 % (30-34); Mean Corpuscular Volume 89 fl (79-97); Platelet Count 246 K/mm3 (140-440); Red Blood Count 3.79 M/mm3 (3.65-5.03); Red Cell Distribution Width 14.2 % (13.2-15.2)
[2020-05-14 10:01] LABS: Calcium 7.8 mg/dL (8.4-10.2)
[2020-05-14] MEDS ORDERED: ACETAMINOPHEN 325 MG TAB ONE (10:01)
[2020-05-14 11:09] LABS: Total Cells Counted 100
[2020-05-14 11:10] LABS: Platelet Estimate Consistent w Auto; RBC Morphology Normal
--- NOTE | 2020-05-14 15:22 | Consultation ---
History of Present Illness - Reason for Consult Consult date: 05/14/20 - History of Present Illness 69-year-old female past medical history diabetes, hypertension admitted to hospital complaining abdominal pain and diarrhea. She notes this has been going on approximately 4 weeks prior to admission, but is worsened recently which prompted her presentation to the hospital. She denies any blood in the stool, denies any nausea or vomiting. She complains of intermittent low-grade fever at home. Afebrile since admission with a white count 28. Currently levofloxacin and Flagyl. Blood cultures currently pending. Imaging personally reviewed: CT abdomen pelvis: Colitis from the splenic flexure to the rectum. Review of Systems: Bold if positive, otherwise negative General: fevers, chills, rigors HEENT: visual disturbance, diplopia, eye pain Respiratory: cough, sputum, hemoptysis, shortness of breath Cardiovascular: chest pain, syncope Gastrointestinal: nausea, vomiting, diarrhea, abdominal pain Genitourinary: dysuria, hematuria, flank pain Musculoskeletal: neck pain, back pain, joint pain, edema Neurologic: headaches, seizures Hematologic: easy bruising or bleeding Endocrine: night sweats, acute weight loss Skin: rash, jaundice, redness Psychiatric: suicidal, homicidal ideation Past History Past Medical History: diabetes, hypertension Past Surgical History: No surgical history Social history: smoking (Former smoker) Family history: no significant family history Medications and Allergies Allergies Allergy/AdvReac Type Severity Reaction Status Date / Time morphine Allergy Itching Verified 05/13/20 22:58 Penicillins Allergy Hives Verified 05/13/20 22:58 Active Meds: Active Medications Acetaminophen (Tylenol) 650 mg PO Q4H PRN PRN Reason: Pain MILD(1-3)/Fever >100.5/CORDOVA Dextrose (D50w (25gm) Syringe) 50 ml IV Q30MIN PRN; Protocol PRN Reason: Hypoglycemia Heparin Sodium (Porcine) (Heparin) 5,000 unit SUB-Q Q8HR [facility]I Sodium Chloride (Nacl 0.9% 1000 Ml) 1,000 mls @ 125 mls/hr IV DIRECT GINI Metronidazole (Flagyl 500 Mg/100 Ml) 500 mg in 100 mls @ 100 mls/hr IV Q8HR G[facility]I; Protocol Last Admin: 05/14/20 07:17 Dose: 100 mls/hr Documented by: Levofloxacin/Dextrose (Levaquin 500mg/100ml) 500 mg in 100 mls @ 100 mls/hr IV Q48HR [facility]I; Protocol Insulin Human Lispro (Humalog) 0 unit SUB-Q ACHS G[facility]I; Protocol Last Admin: 05/14/20 11:46 Dose: Not Given Documented by: Ondansetron HCl (Zofran) 4 mg IV Q8H PRN PRN Reason: Nausea And Vomiting Sodium Chloride (Sodium Chloride Flush Syringe 10 Ml) 10 ml IV BID [facility] Last Admin: 05/14/20 11:47 Dose: 10 ml Documented by: Sodium Chloride (Sodium Chloride Flush Syringe 10 Ml) 10 ml IV PRN PRN PRN Reason: LINE FLUSH Physical Examination - Physical Exam Narrative exam: Physical Exam: Constitutional: Alert, cooperative. No acute distress Head, Ears, Nose: Normocephalic, atraumatic. External ears, nose normal Eyes: Conjunctivae/corneas clear. No icterus. No ptosis. Neck: Supple, no meningeal signs Oral: dentition fair, no thrush Cardiovascular: S1, S2 normal. Respiratory: Good air entry, clear to auscultation bilaterally GI: Soft, non-tender; bowel sounds normal. No peritoneal signs. Musculoskeletal: No pedal edema, no cyanosis. Skin: No rash or abscess Hem/Lymphatic: No palpable cervical or supraclavicular nodes. No lymphangitis Psych: Mood ok. Affect normal Neurological: Awake, alert, oriented. No gross abnormality - Constitutional Vitals: Vital Signs Temp Pulse Resp BP Pulse Ox 98.7 F 95 H 15 120/52 97 05/13/20 22:54 05/14/20 07:45 05/14/20 07:45 05/14/20 07:45 05/14/20 07:45 Temperature -Last 24 Hours Temperature 98.7 F Results - Labs CBC & Chem 7: 05/14/20 09:17 05/14/20 09:17 Labs: Abnormal lab results 05/13/20 05/13/20 05/13/20 Range/Units 23:18 23:18 23:25 WBC 30.6 H (4.5-11.0) K/mm3 Lymph % (Auto) 7.8 L (13.4-35.0) % [place] # (Auto) 2.0 H (0.0-0.8) K/mm3 Seg Neutrophils % 84.5 H (40.0-70.0) % Seg Neuts % (Manual) (40.0-70.0) % Lymphocytes % (Manual) (13.4-35.0) % Seg Neutrophils # 25.9 H (1.8-7.7) K/mm3 Seg Neutrophils # Man (1.8-7.7) K/mm3 Monocytes # (Manual) (0.0-0.8) K/mm3 Basophils # (Manual) (0.0-0.1) K/mm3 Sodium 125 L (137-145) mmol/L Chloride 91.9 L (98-107) mmol/L Carbon Dioxide 12 L (22-30) mmol/L BUN 63 H (7-17) mg/dL Creatinine 3.3 H (0.6-1.2) mg/dL Glucose 261 H (65-100) mg/dL POC Glucose (70-105) mg/dL Lactic Acid 2.20 H* (0.7-2.0) mmol/L Calcium (8.4-10.2) mg/dL AST 49 H (5-40) units/L Albumin 3.1 L (3.9-5) g/dL 05/14/20 05/14/20 05/14/20 Range/Units 00:45 02:13 08:32 WBC (4.5-11.0) K/mm3 Lymph % (Auto) (13.4-35.0) % [place] # (Auto) (0.0-0.8) K/mm3 Seg Neutrophils % (40.0-70.0) % Seg Neuts % (Manual) (40.0-70.0) % Lymphocytes % (Manual) (13.4-35.0) % Seg Neutrophils # (1.8-7.7) K/mm3 Seg Neutrophils # Man (1.8-7.7) K/mm3 Monocytes # (Manual) (0.0-0.8) K/mm3 Basophils # (Manual) (0.0-0.1) K/mm3 Sodium (137-145) mmol/L Chloride (98-107) mmol/L Carbon Dioxide (22-30) mmol/L BUN (7-17) mg/dL Creatinine (0.6-1.2) mg/dL Glucose (65-100) mg/dL POC Glucose 135 H (70-105) mg/dL Lactic Acid 2.40 H* 2.30 H* (0.7-2.0) mmol/L Calcium (8.4-10.2) mg/dL AST (5-40) units/L Albumin (3.9-5) g/dL 05/14/20 05/14/20 05/14/20 Range/Units 09:17 09:17 11:51 WBC 28.6 H (4.5-11.0) K/mm3 Lymph % (Auto) (13.4-35.0) % [place] # (Auto) (0.0-0.8) K/mm3 Seg Neutrophils % (40.0-70.0) % Seg Neuts % (Manual) 83.0 H (40.0-70.0) % Lymphocytes % (Manual) 10.0 L (13.4-35.0) % Seg Neutrophils # (1.8-7.7) K/mm3 Seg Neutrophils # Man 23.7 H (1.8-7.7) K/mm3 Monocytes # (Manual) 1.4 H (0.0-0.8) K/mm3 Basophils # (Manual) 0.3 H (0.0-0.1) K/mm3 Sodium 135 L D (137-145) mmol/L Chloride (98-107) mmol/L Carbon Dioxide 16 L (22-30) mmol/L BUN 55 H (7-17) mg/dL Creatinine 2.2 H (0.6-1.2) mg/dL Glucose (65-100) mg/dL POC Glucose 60 L (70-105) mg/dL Lactic Acid (0.7-2.0) mmol/L Calcium 7.8 L (8.4-10.2) mg/dL AST (5-40) units/L Albumin (3.9-5) g/dL Assessment and Plan Cultures: Blood culture 05/13/2020 pending A/P: 69-year-old female past medical history diabetes, hypertension admitted with colitis #Acute sepsis: Present with tachycardia and leukocytosis secondary to colitis. #Colitis: Agree with current antibiotics. Likely will need 2 weeks. #Diabetes: tight glycemic control for best outcomes. #WESLEY on CKD: Renally dose antibiotics Recs: -Continue levofloxacin renally dosed and metronidazole for now. If she improve s, would plan on 1 to 2 weeks of treatment. -Follow-up blood cultures Thank you for the consult, we will continue to follow. Dr. Madrid taking over tomorrow. Michaela Howe MD [facility] O: [phone] F: [phone]
[2020-05-14] MEDS ORDERED: HYDROmorphone 2 MG/1 ML INJ IV ONE (16:14)
[2020-05-14] MEDS ORDERED: diphenhydrAMINE 50 MG/ML VIAL IV ONE (16:16)
[2020-05-14 16:21] LABS: Calcium 7.7 mg/dL (8.4-10.2)
[2020-05-14] MEDS ORDERED: HEPARIN 5,000 UNIT/1 ML VIAL ONE (16:57)
[2020-05-14] MEDS ORDERED: diphenhydrAMINE 50 MG/ML VIAL ONE (16:57)
[2020-05-14] MEDS ORDERED: DEXTROSE 50% IN WATER (25GM) 50 ML SYRINGE IV ONE (17:33)
[2020-05-14] MEDS ORDERED: NALOXONE 2 MG/2 ML INJ ONE (17:42)
[2020-05-14] MEDS: HEPARIN 5,000 UNIT/1 ML VIAL SUB-Q SCH ×2 (18:32→23:27)
[2020-05-14] MEDS ORDERED: NALOXONE 2 MG/2 ML INJ IV ONE (18:37)
[2020-05-14] MEDS: D5W/0.9% NACL 1,000 ML IV SCH (23:29)
[2020-05-15] MEDS: ACETAMINOPHEN 325 MG TAB PO PRN ×2 (03:44→12:20)
[2020-05-15 05:21] LABS: Hemoglobin 10.3 gm/dl (10.1-14.3); Mean Corpuscular HGB Conc 34 % (30-34); Mean Corpuscular Volume 88 fl (79-97); Platelet Count 226 K/mm3 (140-440); Red Blood Count 3.39 M/mm3 (3.65-5.03)
[2020-05-15 05:22] LABS: Basophils % (Auto) 0.4 % (0.0-1.8); Eosinophils % (Auto) 2.4 % (0.0-4.3); Lymphocytes % (Auto) 9.6 % (13.4-35.0); Monocytes % (Auto) 6.6 % (0.0-7.3)
[2020-05-15 05:23] LABS: Basophils # (Auto) 0.1 K/mm3 (0.0-0.1); Eosinophils # (Auto) 0.5 K/mm3 (0.0-0.4); Lymphocytes # (Auto) 2.1 K/mm3 (1.2-5.4); Monocytes # (Auto) 1.5 K/mm3 (0.0-0.8)
[2020-05-15 05:30] LABS: INR 1.17 (0.87-1.13)
[2020-05-15 05:42] LABS: Calcium 7.8 mg/dL (8.4-10.2)
[2020-05-15] MEDS: metroNIDAZOLE/NS 500 MG/100 ML 500 MG/100 ML BAG IV SCH ×3 (06:34→21:49)
[2020-05-15] MEDS: HEPARIN 5,000 UNIT/1 ML VIAL SUB-Q SCH ×3 (06:36→21:49)
[2020-05-15] MEDS: INSULIN LISPRO 100 UNIT/ML VIAL 3 mL SUB-Q SCH ×4 (07:00→22:06)
--- NOTE | 2020-05-15 09:56 | Progress Note ---
Assessment and Plan 1. Acute kidney injury: Vasomotor nephropathy in the setting of volume depletion and hypotension. CT abdomen negative for hydro. Urine studies ordered. Monitor renal function. Creatinine level is improving. Avoid nephrotoxic agents. Meds dosage based on GFR. 2. FEN: Acute Hyponatremia, 2/2 volume depletion, improving, monitor. Initial corrected Sodium level was 129. Anion-gap Metabolic acidosis, 2/2 Lactic acdiosis, monitor. Monitor lytes. 3. Colitis: On Levofloxacin and Flagyl. Per primary. 4. Severe sepsis, POA: Continue abx and follow cultures. 5. DM type 2: Accuchecks. 6. Hypertension: Hold BP meds due to hypotension. Monitor. Subjective: Patient was seen and examined at the bedside. Doing ok. - General Appearance General appearance: well-developed, well-nourished, appears stated age, obese, no distress HEENT: ATNC, KENNETH, hearing intact, vision intact Neck: supple Respiratory: ctab Cardiology: regular, S1S2, no murmur Gastrointestinal: normoactive bowel sounds, no tenderness, not distended Integumentary: no obvious rash Neurologic: no asterixis, alert and oriented x3, able to move extremities Ext: no edema noted Psychiatric: cooperative Subjective Date of service: 05/15/20 Objective - Vital Signs Vital signs: Vital Signs - 12hr 05/14/20 05/14/20 05/14/20 21:59 22:00 22:11 Temperature Pulse Rate 94 H 93 H 96 H Pulse Rate [ 92 H None] Respiratory 24 20 19 Rate Blood Pressure 136/64 136/64 O2 Sat by Pulse 97 98 96 Oximetry 05/14/20 05/14/20 05/14/20 22:21 22:31 22:41 Temperature Pulse Rate 93 H 92 H 93 H Pulse Rate [ None] Respiratory 26 H 33 H 16 Rate Blood Pressure 136/64 136/64 136/64 O2 Sat by Pulse 96 97 98 Oximetry 05/14/20 05/14/20 05/14/20 22:51 23:00 23:11 Temperature Pulse Rate 93 H 94 H 94 H Pulse Rate [ 93 H None] Respiratory 25 H 22 37 H Rate Blood Pressure 136/64 139/72 139/72 O2 Sat by Pulse 98 97 97 Oximetry 05/14/20 05/14/20 05/14/20 23:21 23:30 23:31 Temperature 102.4 F H Pulse Rate 93 H 91 H Pulse Rate [ None] Respiratory 19 20 Rate Blood Pressure 139/72 139/72 O2 Sat by Pulse 97 96 Oximetry 05/14/20 05/14/20 05/15/20 23:41 23:51 00:00 Temperature Pulse Rate 92 H 92 H 92 H Pulse Rate [ 91 H None] Respiratory 28 H 21 24 Rate Blood Pressure 139/72 139/72 107/63 O2 Sat by Pulse 98 97 96 Oximetry 05/15/20 05/15/20 05/15/20 00:11 00:21 00:31 Temperature Pulse Rate 90 89 91 H Pulse Rate [ None] Respiratory 23 22 22 Rate Blood Pressure 107/63 107/63 107/63 O2 Sat by Pulse 97 96 97 Oximetry 05/15/20 05/15/20 05/15/20 00:41 00:51 01:00 Temperature Pulse Rate 89 90 91 H Pulse Rate [ 90 None] Respiratory 15 18 21 Rate Blood Pressure 107/63 107/63 116/70 O2 Sat by Pulse 97 97 97 Oximetry 05/15/20 05/15/20 05/15/20 01:11 01:21 01:31 Temperature Pulse Rate 91 H 96 H 92 H Pulse Rate [ None] Respiratory 22 22 32 H Rate Blood Pressure 116/70 116/70 116/70 O2 Sat by Pulse 98 96 97 Oximetry 05/15/20 05/15/20 05/15/20 01:41 01:51 02:00 Temperature Pulse Rate 91 H 93 H 92 H Pulse Rate [ 92 H None] Respiratory 33 H 21 22 Rate Blood Pressure 116/70 116/70 123/58 O2 Sat by Pulse 95 98 98 Oximetry 05/15/20 05/15/20 05/15/20 02:11 02:21 02:31 Temperature Pulse Rate 92 H 91 H 91 H Pulse Rate [ None] Respiratory 34 H 25 H 21 Rate Blood Pressure 123/58 123/58 123/58 O2 Sat by Pulse 98 98 97 Oximetry 05/15/20 05/15/20 05/15/20 02:41 02:51 03:00 Temperature Pulse Rate 91 H 91 H 91 H Pulse Rate [ None] Respiratory 30 H 20 24 Rate Blood Pressure 123/58 123/58 128/62 O2 Sat by Pulse 97 96 96 Oximetry 05/15/20 05/15/20 05/15/20 03:11 03:21 03:27 Temperature 103 F H Pulse Rate 92 H 93 H Pulse Rate [ None] Respiratory 20 28 H Rate Blood Pressure O2 Sat by Pulse 99 97 Oximetry 05/15/20 05/15/20 05/15/20 03:31 03:41 03:51 Temperature Pulse Rate 95 H 95 H 95 H Pulse Rate [ None] Respiratory 32 H 20 25 H Rate Blood Pressure O2 Sat by Pulse 97 98 97 Oximetry 05/15/20 05/15/20 05/15/20 04:00 04:01 04:11 Temperature Pulse Rate 93 H 96 H 94 H Pulse Rate [ None] Respiratory 19 18 Rate Blood Pressure O2 Sat by Pulse 97 98 Oximetry 05/15/20 05/15/20 05/15/20 04:21 04:31 04:41 Temperature Pulse Rate 95 H 93 H 91 H Pulse Rate [ None] Respiratory 20 24 19 Rate Blood Pressure O2 Sat by Pulse 98 97 97 Oximetry 05/15/20 05/15/20 05/15/20 04:51 05:01 05:11 Temperature Pulse Rate 90 91 H 88 Pulse Rate [ None] Respiratory 25 H 20 24 Rate Blood Pressure O2 Sat by Pulse 97 97 97 Oximetry 05/15/20 05/15/20 05/15/20 05:21 05:31 05:41 Temperature Pulse Rate 94 H 88 85 Pulse Rate [ None] Respiratory 24 18 22 Rate Blood Pressure 98/47 98/47 98/47 O2 Sat by Pulse 96 98 98 Oximetry 05/15/20 05:51 Temperature Pulse Rate 84 Pulse Rate [ None] Respiratory 21 Rate Blood Pressure 98/47 O2 Sat by Pulse 97 Oximetry - Lab 05/15/20 04:44 05/15/20 04:44 Most recent lab results Calcium 7.8 mg/dL (8.4-10.2) L 05/15/20 04:44 Phosphorus 2.90 mg/dL (2.5-4.5) 05/14/20 15:41 Magnesium 1.90 mg/dL (1.7-2.3) 05/14/20 15:41 Medications & Allergies - Medications Allergies/Adverse Reactions: Allergies morphine Allergy (Verified 05/13/20 22:58) Itching Penicillins Allergy (Verified 05/13/20 22:58) Hives Active Medications: Generic Name Dose Route Start Last Admin Trade Name Freq PRN Reason Stop Dose Admin Acetaminophen 650 mg 05/14/20 02:37 05/15/20 03:44 Tylenol PO 650 mg Q4H PRN Administration Pain MILD(1-3)/Fever >100.5/CORDOVA Dextrose 50 ml 05/14/20 02:37 D50w (25gm) Syringe IV Q30MIN PRN Hypoglycemia Protocol Heparin Sodium (Porcine) 5,000 unit 05/14/20 14:00 05/15/20 06:36 Heparin SUB-Q 5,000 unit Q8HR GINI Administration Metronidazole 500 mg in 100 mls @ 100 mls/hr 05/14/20 06:00 05/15/20 06:34 Flagyl 500 Mg/100 Ml IV 100 mls/hr Q8HR GINI Administration Protocol Levofloxacin/Dextrose 500 mg in 100 mls @ 100 mls/hr 05/15/20 10:00 Levaquin 500mg/100ml IV Q48HR GINI Protocol Dextrose/Sodium Chloride 1,000 mls @ 125 mls/hr 05/14/20 23:45 05/14/20 23:29 D5ns IV 75 mls/hr DIRECT GINI Administration Insulin Human Lispro 0 unit 05/14/20 07:30 05/14/20 23:10 Humalog SUB-Q Not Given ACHS GINI Protocol Ondansetron HCl 4 mg 05/14/20 02:37 Zofran IV Q8H PRN Nausea And Vomiting Sodium Chloride 10 ml 05/14/20 10:00 05/14/20 11:47 Sodium Chloride Flush Syringe 10 Ml IV 10 ml BID GINI Administration Sodium Chloride 10 ml 05/14/20 02:37 Sodium Chloride Flush Syringe 10 Ml IV PRN PRN LINE FLUSH
--- NOTE | 2020-05-15 11:45 | Consultation ---
REFERRING PHYSICIAN: Chichi Mark MD INDICATIONS: 1. Abdominal pain. 2. Diarrhea. HISTORY OF PRESENT ILLNESS: The patient is a 69-year-old white female with past medical history of hypertension, diabetes, now been seen in GI for diarrhea and abdominal pain. The patient reports symptoms have been ongoing for 4 weeks with abdominal cramping with loose nonbloody stools. She reports no recent diet or medication changes. She reports no weight loss or anemia. The patient reports she discussed with her primary care physician and after trying Imodium, symptoms worsened and subsequently came to the Emergency Room. She subsequently was evaluated in the Emergency Room, noted to have colitis, admitted and GI consulted. No other specific complaints. PAST MEDICAL HISTORY: 1. Hypertension. 2. Diabetes. ALLERGIES: MORPHINE AND PENICILLIN. MEDICATIONS: Reviewed and updated in chart. SOCIAL HISTORY: Denies alcohol, tobacco or drug abuse. FAMILY HISTORY: Negative for colon cancer, IBD, or liver disease. REVIEW OF SYSTEMS: GENERAL: Reports some weakness. HEENT: No visual complaints or tinnitus. PULMONARY: No shortness of breath. No cough. No chest pain. GASTROINTESTINAL: Reports abdominal pain and loose stools, now improving. All points of 13-point review of systems otherwise negative. PHYSICAL EXAMINATION: VITAL SIGNS: Temperature of 99.8, pulse 84, respirations 20, blood pressure 98/47. GENERAL: Fairly nourished female, mildly weak appearing, in no acute distress. HEENT: Pupils equal, round and reactive. PULMONARY: Clear to auscultation bilaterally. CARDIOVASCULAR: Regular rhythm. Normal S1, S2. ABDOMEN: Palpable soft. SKIN: No obvious rashes. LABORATORY DATA: Pertinent for white count of 22.2, hemoglobin and hematocrit of 10.3 and 30.0, platelet count of 226. Chem-7, sodium of 135, potassium 4.4, chloride 105, CO2 of 14, BUN and creatinine of [address] scan of abdomen and pelvis with contrast shows signs of colitis from the splenic flexure to distal colon. ASSESSMENT AND PLAN: A 69-year-old female presents with 4 weeks of abdominal pain with cramping and loose nonbloody stools. The CT scan showing signs of colitis. The patient since admission has been started on Levaquin and Flagyl and reports diarrhea is very much improved. Abdominal pain is also slowly improved. She feels better and would like to try to eat. PLAN: 1. We will review CT scan. 2. Follow labs including CBC while addressing metabolic derangements per primary team. 3. Start clear liquid diet. 4. Await further ID input. 5. No role for colonoscopy at this time. 6. We will follow. JOB# [id number] CAB/NTS
[2020-05-15] MEDS ORDERED: FLU VACC QUAD 2020-2021 (6 months +)/PF 60 0.5 ML SYRINGE IM ONE (12:00)
[2020-05-15] MEDS: SODIUM BICARBONATE 650 MG TAB PO SCH ×2 (14:40→21:48)
[2020-05-15] MEDS: D5W/0.9% NACL 1,000 ML IV SCH ×2 (14:44→21:52)
--- NOTE | 2020-05-15 17:05 | Progress Note ---
Assessment and Plan Assessment and plan: --Acute colitis Current Visit: Yes Status: Acute Plan to address problem: Sips of water. empiric IV antibiotics and IV fluid. ID following, pending GI consult --Leukocytosis; WBC 30 K-22.2 Current Visit: Yes Status: Acute Plan to address problem: secondary to sepsis, acute colitis Follow cultures, trend leukocyte count --Abdominal pain Current Visit: Yes Status: Acute Plan to address problem: Secondary to colitis, pain medications Treat the underlying cause -- Hypotension; present on admission Current Visit: Yes Status: Acute Plan to address problem: Blood pressures reasonable range Increase IV fluids flow rate Fluid bolus if needed supportive care --Hyponatremia; Current Visit: Yes Status: Acute Plan to address problem: IV normal saline, closely monitor electrolytes --Moderate malnutrition; due to underlying colitis Treat the underlying cause Supportive care nutrition supplements when patient is able to take oral --Acute kidney injury Current Visit: Yes Status: Acute Plan to address problem: Possibly prerenal acidemia, vasomotor nephropathy. IV hydration, monitor renal function, avoid nephrotoxins Nephrology following --DVT prophylaxis Current Visit: Yes Status: Acute Plan to address problem: Patient placed on subcutaneous heparin --Full code status Current Visit: Yes Status: Acute Monitor closely and adjust management as needed Plan of care reviewed with the patient and her nurse Patient is stable enough to be transferred out of ICU to [facility] today Critical care time 32 minutes The high probability of a clinically significant, sudden or life threatening deterioration of the [GI, ID, renal and metabolic] system(s) required my full and direct attention, intervention and personal management. The aggregate critical care time was [32] minutes without overlap. Time includes spent on [x] Data Review and interpretation [x] Patient assessment and monitoring of vital signs [x] Documentation [x] Medication orders and management History Interval history: I have seen and examined the patient in ICU at the bedside Patient's chart and medications, tests and reports reviewed Patient admitted with acute colitis n.p.o. status Patient is asking for some food Abdominal pain slightly improved Patient also complains of some vague headache intermittent Vital signs noted Hospitalist Physical - Constitutional Vitals: Temp Pulse Resp BP Pulse Ox 97.5 F L 90 20 104/42 95 05/15/20 13:29 05/15/20 13:29 05/15/20 13:29 05/15/20 13:29 05/15/20 13:29 General appearance: Present: mild distress, well-nourished - EENT Eyes: Present: PERRL, EOM intact - Neck Neck: Present: supple, normal ROM - Respiratory Respiratory effort: normal Respiratory: bilateral: diminished, negative: rales, rhonchi, wheezing - Cardiovascular Rhythm: regular Heart Sounds: Present: S1 & S2 - Extremities Extremities: no ischemia, No edema, abnormal (Superficial bruises upper extremity) Extremity abnormal: erythema (upper extremity) - Abdominal General gastrointestinal: soft, non-tender, non-distended, normal bowel sounds - Integumentary Integumentary: Present: clear, warm - Psychiatric Psychiatric: appropriate mood/affect, cooperative - Neurologic Neurologic: moves all extremities Results - Labs CBC & Chem 7: 05/15/20 04:44 05/15/20 04:44 Labs: Laboratory Last Values WBC 22.2 K/mm3 (4.5-11.0) H 05/15/20 04:44 RBC 3.39 M/mm3 (3.65-5.03) L 05/15/20 04:44 Hgb 10.3 gm/dl (10.1-14.3) 05/15/20 04:44 Hct 30.0 % (30.3-42.9) L 05/15/20 04:44 MCV 88 fl (79-97) 05/15/20 04:44 MCH 30 pg (28-32) 05/15/20 04:44 MCHC 34 % (30-34) 05/15/20 04:44 RDW 14.0 % (13.2-15.2) 05/15/20 04:44 Plt Count 226 K/mm3 (140-440) 05/15/20 04:44 Lymph % (Auto) 9.6 % (13.4-35.0) L 05/15/20 04:44 Bureau % (Auto) 6.6 % (0.0-7.3) 05/15/20 04:44 Eos % (Auto) 2.4 % (0.0-4.3) 05/15/20 04:44 Baso % (Auto) 0.4 % (0.0-1.8) 05/15/20 04:44 Lymph # (Auto) 2.1 K/mm3 (1.2-5.4) 05/15/20 04:44 Bureau # (Auto) 1.5 K/mm3 (0.0-0.8) H 05/15/20 04:44 Eos # (Auto) 0.5 K/mm3 (0.0-0.4) H 05/15/20 04:44 Baso # (Auto) 0.1 K/mm3 (0.0-0.1) 05/15/20 04:44 Add Manual Diff Complete 05/14/20 09:17 Total Counted 100 05/14/20 09:17 Seg Neutrophils % 81.0 % (40.0-70.0) H 05/15/20 04:44 Seg Neuts % (Manual) 83.0 % (40.0-70.0) H 05/14/20 09:17 Band Neutrophils % 0 % 05/14/20 09:17 Lymphocytes % (Manual) 10.0 % (13.4-35.0) L 05/14/20 09:17 Reactive Lymphs % (Man) 0 % 05/14/20 09:17 Monocytes % (Manual) 5.0 % (0.0-7.3) 05/14/20 09:17 Eosinophils % (Manual) 1.0 % (0.0-4.3) 05/14/20 09:17 Basophils % (Manual) 1.0 % (0.0-1.8) 05/14/20 09:17 Metamyelocytes % 0 % 05/14/20 09:17 Myelocytes % 0 % 05/14/20 09:17 Promyelocytes % 0 % 05/14/20 09:17 Blast Cells % 0 % 05/14/20 09:17 Nucleated RBC % Not Reportable 05/14/20 09:17 Seg Neutrophils # 18.0 K/mm3 (1.8-7.7) H 05/15/20 04:44 Seg Neutrophils # Man 23.7 K/mm3 (1.8-7.7) H 05/14/20 09:17 Band Neutrophils # 0.0 K/mm3 05/14/20 09:17 Lymphocytes # (Manual) 2.9 K/mm3 (1.2-5.4) 05/14/20 09:17 Abs React Lymphs (Man) 0.0 K/mm3 05/14/20 09:17 Monocytes # (Manual) 1.4 K/mm3 (0.0-0.8) H 05/14/20 09:17 Eosinophils # (Manual) 0.3 K/mm3 (0.0-0.4) 05/14/20 09:17 Basophils # (Manual) 0.3 K/mm3 (0.0-0.1) H 05/14/20 09:17 Metamyelocytes # 0.0 K/mm3 05/14/20 09:17 Myelocytes # 0.0 K/mm3 05/14/20 09:17 Promyelocytes # 0.0 K/mm3 05/14/20 09:17 Blast Cells # 0.0 K/mm3 05/14/20 09:17 WBC Morphology Not Reportable 05/14/20 09:17 Hypersegmented Neuts Not Reportable 05/14/20 09:17 Hyposegmented Neuts Not Reportable 05/14/20 09:17 Hypogranular Neuts Not Reportable 05/14/20 09:17 Smudge Cells Not Reportable 05/14/20 09:17 Toxic Granulation Not Reportable 05/14/20 09:17 Toxic Vacuolation Not Reportable 05/14/20 09:17 Dohle Bodies Not Reportable 05/14/20 09:17 Pelger-Huet Anomaly Not Reportable 05/14/20 09:17 Jaycee Rods Not Reportable 05/14/20 09:17 Platelet Estimate Consistent w auto 05/14/20 09:17 Clumped Platelets Not Reportable 05/14/20 09:17 Plt Clumps, EDTA Not Reportable 05/14/20 09:17 Large Platelets Not Reportable 05/14/20 09:17 Giant Platelets Not Reportable 05/14/20 09:17 Platelet Satelliting Not Reportable 05/14/20 09:17 Plt Morphology Comment Not Reportable 05/14/20 09:17 RBC Morphology Normal 05/14/20 09:17 Dimorphic RBCs Not Reportable 05/14/20 09:17 Polychromasia Not Reportable 05/14/20 09:17 Hypochromasia Not Reportable 05/14/20 09:17 Poikilocytosis Not Reportable 05/14/20 09:17 Anisocytosis Not Reportable 05/14/20 09:17 Microcytosis Not Reportable 05/14/20 09:17 Macrocytosis Not Reportable 05/14/20 09:17 Spherocytes Not Reportable 05/14/20 09:17 Pappenheimer Bodies Not Reportable 05/14/20 09:17 Sickle Cells Not Reportable 05/14/20 09:17 Target Cells Not Reportable 05/14/20 09:17 Tear Drop Cells Not Reportable 05/14/20 09:17 Ovalocytes Not Reportable 05/14/20 09:17 Helmet Cells Not Reportable 05/14/20 09:17 [place] Bodies Not Reportable 05/14/20 09:17 Ione Rings Not Reportable 05/14/20 09:17 Bison Cells Not Reportable 05/14/20 09:17 Bite Cells Not Reportable 05/14/20 09:17 Crenated Cell Not Reportable 05/14/20 09:17 Elliptocytes Not Reportable 05/14/20 09:17 Acanthocytes (Spur) Not Reportable 05/14/20 09:17 Rouleaux Not Reportable 05/14/20 09:17 Hemoglobin C Crystals Not Reportable 05/14/20 09:17 Schistocytes Not Reportable 05/14/20 09:17 Malaria parasites Not Reportable 05/14/20 09:17 Jenaro Bodies Not Reportable 05/14/20 09:17 Hem Pathologist Commnt No 05/14/20 09:17 PT 15.1 Sec. (12.2-14.9) H 05/15/20 04:44 INR 1.17 (0.87-1.13) H 05/15/20 04:44 Sodium 135 mmol/L (137-145) L 05/15/20 04:44 Potassium 4.4 mmol/L (3.6-5.0) 05/15/20 04:44 Chloride 105.0 mmol/L (98-107) 05/15/20 04:44 Carbon Dioxide 14 mmol/L (22-30) L 05/15/20 04:44 Anion Gap 20 mmol/L 05/15/20 04:44 BUN 46 mg/dL (7-17) H 05/15/20 04:44 Creatinine 1.8 mg/dL (0.6-1.2) H 05/15/20 04:44 Estimated GFR 28 ml/min 05/15/20 04:44 BUN/Creatinine Ratio 26 % 05/15/20 04:44 Glucose 128 mg/dL (65-100) H 05/15/20 04:44 POC Glucose 114 mg/dL (70-105) H 05/15/20 11:43 Lactic Acid 1.90 mmol/L (0.7-2.0) 05/14/20 05:35 Calcium 7.8 mg/dL (8.4-10.2) L 05/15/20 04:44 Phosphorus 2.90 mg/dL (2.5-4.5) 05/14/20 15:41 Magnesium 1.90 mg/dL (1.7-2.3) 05/14/20 15:41 Total Bilirubin 0.30 mg/dL (0.1-1.2) 05/13/20 23:18 AST 49 units/L (5-40) H 05/13/20 23:18 ALT 19 units/L (7-56) 05/13/20 23:18 Alkaline Phosphatase 102 units/L (35-129) 05/13/20 23:18 Total Protein 6.6 g/dL (6.3-8.2) 05/13/20 23:18 Albumin 3.1 g/dL (3.9-5) L 05/13/20 23:18 Albumin/Globulin Ratio 0.9 % 05/13/20 23:18 Urine Color Yellow (Yellow) 05/14/20 02:08 Urine Turbidity Clear (Clear) 05/14/20 02:08 Urine pH 5.0 (5.0-7.0) 05/14/20 02:08 Ur Specific [place] 1.014 (1.003-1.030) 05/14/20 02:08 Urine Protein <15 mg/dl mg/dL (Negative) 05/14/20 02:08 Urine Glucose (UA) 50 mg/dL (Negative) 05/14/20 02:08 Urine Ketones Neg mg/dL (Negative) 05/14/20 02:08 Urine Blood Sm (Negative) 05/14/20 02:08 Urine Nitrite Neg (Negative) 05/14/20 02:08 Urine Bilirubin Neg (Negative) 05/14/20 02:08 Urine Urobilinogen < 2.0 mg/dL (<2.0) 05/14/20 02:08 Ur Leukocyte Esterase Neg (Negative) 05/14/20 02:08 Urine WBC (Auto) < 1.0 /HPF (0.0-6.0) 05/14/20 02:08 Urine RBC (Auto) 2.0 /HPF (0.0-6.0) 05/14/20 02:08 U Epithel Cells (Auto) < 1.0 /HPF (0-13.0) 05/14/20 02:08 Hyaline Casts 1 /LPF 05/14/20 02:08 Urine Mucus Few /HPF 05/14/20 02:08 Microbiology: Microbiology 05/13/20 23:25 Peripheral/Venous Blood Culture - Preliminary NO GROWTH AFTER 24 HOURS 05/13/20 23:25 Peripheral/Venous Blood Culture - Preliminary NO GROWTH AFTER 24 HOURS Mix/IV: Voiding Method External Female Catheter IV Catheter Type [Left Forearm INT / Saline Lock ] IV Catheter Type [Left Hand] INT / Saline Lock IV Catheter Type [Left INT / Saline Lock Antecubital] Active Medications - Current Medications Current Medications: Generic Name Dose Route Start Last Admin Trade Name Freq PRN Reason Stop Dose Admin Acetaminophen 650 mg 05/14/20 02:37 05/15/20 12:20 Tylenol PO 650 mg Q4H PRN Administration Pain MILD(1-3)/Fever >100.5/CORDOVA Dextrose 50 ml 05/14/20 02:37 D50w (25gm) Syringe IV Q30MIN PRN Hypoglycemia Protocol Heparin Sodium (Porcine) 5,000 unit 05/14/20 14:00 05/15/20 14:43 Heparin SUB-Q 5,000 unit Q8HR GINI Administration Metronidazole 500 mg in 100 mls @ 100 mls/hr 05/14/20 06:00 05/15/20 14:43 Flagyl 500 Mg/100 Ml IV 100 mls/hr Q8HR GINI Administration Protocol Levofloxacin/Dextrose 500 mg in 100 mls @ 100 mls/hr 05/15/20 10:00 05/15/20 11:29 Levaquin 500mg/100ml IV 100 mls/hr Q48HR GINI Administration Protocol Dextrose/Sodium Chloride 1,000 mls @ 125 mls/hr 05/14/20 23:45 05/15/20 14:44 D5ns IV 75 mls/hr DIRECT GINI Administration Insulin Human Lispro 0 unit 05/14/20 07:30 05/15/20 11:30 Humalog SUB-Q Not Given ACHS [facility] Protocol Ondansetron HCl 4 mg 05/14/20 02:37 Zofran IV Q8H PRN Nausea And Vomiting Oxycodone/Acetaminophen 1 tab 05/15/20 14:15 Percocet 5/325 PO Q6H PRN Pain, Moderate (4-6) Sodium Bicarbonate 1,300 mg 05/15/20 14:00 05/15/20 14:40 Sodium Bicarbonate PO 1,300 mg TID GINI Administration Sodium Chloride 10 ml 05/14/20 10:00 05/15/20 11:30 Sodium Chloride Flush Syringe 10 Ml IV 10 ml BID GINI Administration Sodium Chloride 10 ml 05/14/20 02:37 Sodium Chloride Flush Syringe 10 Ml IV PRN PRN LINE FLUSH Nutrition/Malnutrition Assess - Dietary Evaluation Nutrition/Malnutrition Findings: Nutrition Notes Start: 05/14/20 13:34 Freq: Status: Active Protocol: Document 05/15/20 12:41 (Rec: 05/15/20 12:53 [id number]) Nutrition Notes Need for Assessment generated from: cream tester Initial or Follow up Assessment Current Diagnosis Acute Kidney Injury,Diabetes, Sepsis,Hypertension Other Pertinent Diagnosis Renal Failure, Hypotension, Colitis, Gastritis, Abd pain Current Diet NPO Labs/Tests Na 135 BUN 46 Cr 1.8 Pertinent Medications D5NS at 75 ml/hr Height 5 ft 2 in Weight 87.2 kg [place] Body Weight (kg) 50.00 BMI 35.2 Weight Status Morbidly Obese Subjective/Other Information FU for diet edu, RN screen for skin risk. Stuart score 14. Pt reports UBW of 77 kg. Pt reports decreased appetite, abd pain/cramping and loose stools for 4 weeks. Per chart, pt NPO for procedures and will be advanvced to clear liquids. Pt not approprite for diet education at this time- will follow. Percent of energy/protein needs met: 0%/0% Burn Absent Trauma Absent GI Symptoms Diarrhea Current % PO Negligible Minimum of two criteria No physical signs of malnutrition #1 Nutrition Diagnosis Inadequate oral intake Etiology abd pain and diarrhea As Evidenced by Signs and Symptoms pt reports decreased appetite for 4 weeks Is patient on ventilator? No Is Patient Ambulatory and/or Out of Bed Yes REE-([facility]-ambulatory/OOB) [ 3218.336 [id number]] Kcal/Kg value to use for calculation 17 Approximate Energy Requirements Using 1482 kcal/Kg Calculation Used for Recommendations Kcal/kg Additional Notes Pro: 55-82g (0.8-1.2 k/kg AdjBW 68.6kg) Fluid: 1 ml/kcal Nutrition Intervention Change Diet Order: Advance when medically able Goal #1 Diet advanancement when medically able Anticipated Discharge Needs: unable to determine at this time Follow-Up By: 05/18/20 Additional Comments FU for diet advancement and edu needs
[2020-05-15] MEDS: oxyCODONE /ACETAMINOPHEN 5-325MG TAB PO PRN (18:23)
--- NOTE | 2020-05-15 19:21 | Progress Note ---
Assessment and Plan Cultures: Blood culture 05/13/2020 no growth today A/P: 69-year-old female past medical history diabetes, hypertension admitted with colitis #Acute sepsis: Remains with fever, secondary to colitis. #Colitis: Agree with current antibiotics. #Diabetes: tight glycemic control for best outcomes. #WESLEY on CKD: Renally dose antibiotics Recs: -Check for C. difficile -Continue Levaquin/Flagyl for now -Follow-up blood cultures MD Tesfaye Ort[facility] ([facility]) Office [phone] Subjective Date of service: 05/15/20 Principal diagnosis: colitis Interval history: Patient feels okay better than before still complaining of abdominal pain one loose stool in 24 hours Objective - Exam Narrative Exam: General appearance: Alert in NAD Eyes: anicteric sclerae, moist conjunctivae; no lid-lag; PERRLA HENT: Atraumatic; oropharynx clear Lungs: CTA, with normal respiratory effort and no intercostal retractions CV: RRR no murmur Abdomen: Soft, distended, diffusely tender Extremities: no edema, no cyanosis Skin: Bilateral arms with ecchymosis Psych: Appropriate affect, alert and oriented to person, place and time. Neuro: alert and oriented x 3. Moving all extermities - Constitutional Vitals: Vital Signs Temp Pulse Resp BP Pulse Ox 100.6 F H 89 22 133/54 97 05/15/20 17:12 05/15/20 17:12 05/15/20 17:12 05/15/20 17:12 05/15/20 17:12 Temperature -Last 24 Hours Temperature 100.6 F Temperature 97.5 F Temperature 99.0 F Temperature 103 F Temperature 102.4 F Temperature 101.5 F - Labs CBC & Chem 7: 05/15/20 04:44 05/15/20 04:44 Labs: Abnormal lab results 05/14/20 05/14/20 05/15/20 Range/Units 21:20 21:48 04:44 WBC 22.2 H (4.5-11.0) K/mm3 RBC 3.39 L (3.65-5.03) M/mm3 Hct 30.0 L (30.3-42.9) % Lymph % (Auto) 9.6 L (13.4-35.0) % [place] # (Auto) 1.5 H (0.0-0.8) K/mm3 Eos # (Auto) 0.5 H (0.0-0.4) K/mm3 Seg Neutrophils % 81.0 H (40.0-70.0) % Seg Neutrophils # 18.0 H (1.8-7.7) K/mm3 PT (12.2-14.9) Sec. INR (0.87-1.13) Sodium (137-145) mmol/L Carbon Dioxide (22-30) mmol/L BUN (7-17) mg/dL Creatinine (0.6-1.2) mg/dL Glucose (65-100) mg/dL POC Glucose 124 H 115 H (70-105) mg/dL Calcium (8.4-10.2) mg/dL 05/15/20 05/15/20 05/15/20 Range/Units 04:44 04:44 11:43 WBC (4.5-11.0) K/mm3 RBC (3.65-5.03) M/mm3 Hct (30.3-42.9) % Lymph % (Auto) (13.4-35.0) % [place] # (Auto) (0.0-0.8) K/mm3 Eos # (Auto) (0.0-0.4) K/mm3 Seg Neutrophils % (40.0-70.0) % Seg Neutrophils # (1.8-7.7) K/mm3 PT 15.1 H (12.2-14.9) Sec. INR 1.17 H (0.87-1.13) Sodium 135 L (137-145) mmol/L Carbon Dioxide 14 L (22-30) mmol/L BUN 46 H (7-17) mg/dL Creatinine 1.8 H (0.6-1.2) mg/dL Glucose 128 H (65-100) mg/dL POC Glucose 114 H (70-105) mg/dL Calcium 7.8 L (8.4-10.2) mg/dL 05/15/20 Range/Units 17:29 WBC (4.5-11.0) K/mm3 RBC (3.65-5.03) M/mm3 Hct (30.3-42.9) % Lymph % (Auto) (13.4-35.0) % [place] # (Auto) (0.0-0.8) K/mm3 Eos # (Auto) (0.0-0.4) K/mm3 Seg Neutrophils % (40.0-70.0) % Seg Neutrophils # (1.8-7.7) K/mm3 PT (12.2-14.9) Sec. INR (0.87-1.13) Sodium (137-145) mmol/L Carbon Dioxide (22-30) mmol/L BUN (7-17) mg/dL Creatinine (0.6-1.2) mg/dL Glucose (65-100) mg/dL POC Glucose 253 H (70-105) mg/dL Calcium (8.4-10.2) mg/dL
[2020-05-16] MEDS: HEPARIN 5,000 UNIT/1 ML VIAL SUB-Q SCH ×3 (05:57→22:47)
[2020-05-16] MEDS: metroNIDAZOLE/NS 500 MG/100 ML 500 MG/100 ML BAG IV SCH ×3 (05:58→22:47)
[2020-05-16] MEDS: ACETAMINOPHEN 325 MG TAB PO PRN ×2 (05:58→22:51)
[2020-05-16] MEDS: D5W/0.9% NACL 1,000 ML IV SCH ×2 (06:08→07:59)
[2020-05-16] MEDS: INSULIN LISPRO 100 UNIT/ML VIAL 3 mL SUB-Q SCH ×4 (09:28→22:48)
[2020-05-16] MEDS: SODIUM BICARBONATE 650 MG TAB PO SCH ×3 (10:34→20:21)
[2020-05-16 10:40] LABS: Hematocrit 29.1 % (30.3-42.9); Hemoglobin 9.8 gm/dl (10.1-14.3); Mean Corpuscular HGB Conc 34 % (30-34); Mean Corpuscular Volume 90 fl (79-97); Platelet Count 218 K/mm3 (140-440); Red Blood Count 3.24 M/mm3 (3.65-5.03); Red Cell Distribution Width 14.4 % (13.2-15.2)
[2020-05-16 10:42] LABS: Albumin 2.5 g/dL (3.9-5); Calcium 7.4 mg/dL (8.4-10.2)
--- NOTE | 2020-05-16 11:00 | Progress Note ---
Assessment and Plan Assessment and plan: --Hypophosphatemia; Current Visit: Yes Status: Acute Plan to address problem: replenish with sodium phosphate Monitor electrolytes --Acute colitis Current Visit: Yes Status: Acute Plan to address problem: CT abdomen findings reviewed Empiric IV antibiotics and IV fluid. ID and GI following, sips of water. Advanced to clear liquid diet --Leukocytosis; WBC 30 K-22.2-21.0 Current Visit: Yes Status: Acute Plan to address problem: secondary to sepsis, acute colitis We will follow cultures, follow WBC --Abdominal pain Current Visit: Yes Status: Acute Plan to address problem: Secondary to colitis, pain medications On antibiotics, mild improvement -- Hypotension; present on admission Current Visit: Yes Status: Acute Plan to address problem: Significantly improved blood pressures reasonable range I will continue IV fluids flow rate Fluid bolus if needed supportive care --Hyponatremia; mild improvement Current Visit: Yes Status: Acute Plan to address problem: Na level gradually improved from 1 25-1 35 Continue IV normal saline, closely monitor electrolytes --Severe malnutrition; due to underlying colitis Treat the underlying cause Supportive care nutrition supplements when patient is able to take oral --Acute kidney injury Current Visit: Yes Status: Acute Plan to address problem: Possibly prerenal acidemia, vasomotor nephropathy. IV hydration, monitor renal function, avoid nephrotoxins Significant improvement, cr improved from 3.3-1.5 Nephrology following --Patient gives h/o fall in the bathroom in ER; Current Visit: Yes Status: Acute Plan to address problem: superficial abrasions right upper extremity Wound and supportive care Dressing change --DVT prophylaxis Current Visit: Yes Status: Acute Plan to address problem: Patient placed on subcutaneous heparin --Full code status Current Visit: Yes Status: Acute Monitor closely and adjust management as needed Plan of care reviewed with the patient and her nurse GI and ID recommendations noted and appreciated Ambulate as tolerated Possible discharge in 1 -2 days if stable . History Interval history: I have seen and examined the patient at the bedside this morning Patient's chart and medications reviewed Patient feels slightly better still has some diarrhea GI evaluation noted and appreciated Patient started on clear liquid diet Vital signs noted Hospitalist Physical - Constitutional Vitals: Temp Pulse Resp BP Pulse Ox 101.3 F H 99 H 18 160/71 95 05/16/20 05:28 05/16/20 05:28 05/16/20 06:58 05/16/20 05:28 05/16/20 05:28 General appearance: Present: mild distress, well-nourished - EENT Eyes: Present: PERRL, EOM intact - Neck Neck: Present: supple, normal ROM - Respiratory Respiratory effort: normal Respiratory: bilateral: diminished, negative: rales, rhonchi, wheezing - Cardiovascular Rhythm: regular Heart Sounds: Present: S1 & S2 - Extremities Extremities: no ischemia, No edema - Abdominal General gastrointestinal: soft, non-tender, non-distended, normal bowel sounds - Integumentary Integumentary: Present: clear, warm - Psychiatric Psychiatric: appropriate mood/affect, cooperative - Neurologic Neurologic: moves all extremities Results - Labs CBC & Chem 7: 05/16/20 08:59 05/16/20 08:59 Labs: Laboratory Last Values WBC 21.0 K/mm3 (4.5-11.0) H 05/16/20 08:59 RBC 3.24 M/mm3 (3.65-5.03) L 05/16/20 08:59 Hgb 9.8 gm/dl (10.1-14.3) L 05/16/20 08:59 Hct 29.1 % (30.3-42.9) L 05/16/20 08:59 MCV 90 fl (79-97) 05/16/20 08:59 MCH 30 pg (28-32) 05/16/20 08:59 MCHC 34 % (30-34) 05/16/20 08:59 RDW 14.4 % (13.2-15.2) 05/16/20 08:59 Plt Count 218 K/mm3 (140-440) 05/16/20 08:59 Lymph % (Auto) 9.6 % (13.4-35.0) L 05/15/20 04:44 [place] % (Auto) 6.6 % (0.0-7.3) 05/15/20 04:44 Eos % (Auto) 2.4 % (0.0-4.3) 05/15/20 04:44 Baso % (Auto) 0.4 % (0.0-1.8) 05/15/20 04:44 Lymph # (Auto) 2.1 K/mm3 (1.2-5.4) 05/15/20 04:44 [place] # (Auto) 1.5 K/mm3 (0.0-0.8) H 05/15/20 04:44 Eos # (Auto) 0.5 K/mm3 (0.0-0.4) H 05/15/20 04:44 Baso # (Auto) 0.1 K/mm3 (0.0-0.1) 05/15/20 04:44 Add Manual Diff Complete 05/14/20 09:17 Total Counted 100 05/14/20 09:17 Seg Neutrophils % 81.0 % (40.0-70.0) H 05/15/20 04:44 Seg Neuts % (Manual) 83.0 % (40.0-70.0) H 05/14/20 09:17 Band Neutrophils % 0 % 05/14/20 09:17 Lymphocytes % (Manual) 10.0 % (13.4-35.0) L 05/14/20 09:17 Reactive Lymphs % (Man) 0 % 05/14/20 09:17 Monocytes % (Manual) 5.0 % (0.0-7.3) 05/14/20 09:17 Eosinophils % (Manual) 1.0 % (0.0-4.3) 05/14/20 09:17 Basophils % (Manual) 1.0 % (0.0-1.8) 05/14/20 09:17 Metamyelocytes % 0 % 05/14/20 09:17 Myelocytes % 0 % 05/14/20 09:17 Promyelocytes % 0 % 05/14/20 09:17 Blast Cells % 0 % 05/14/20 09:17 Nucleated RBC % Not Reportable 05/14/20 09:17 Seg Neutrophils # 18.0 K/mm3 (1.8-7.7) H 05/15/20 04:44 Seg Neutrophils # Man 23.7 K/mm3 (1.8-7.7) H 05/14/20 09:17 Band Neutrophils # 0.0 K/mm3 05/14/20 09:17 Lymphocytes # (Manual) 2.9 K/mm3 (1.2-5.4) 05/14/20 09:17 Abs React Lymphs (Man) 0.0 K/mm3 05/14/20 09:17 Monocytes # (Manual) 1.4 K/mm3 (0.0-0.8) H 05/14/20 09:17 Eosinophils # (Manual) 0.3 K/mm3 (0.0-0.4) 05/14/20 09:17 Basophils # (Manual) 0.3 K/mm3 (0.0-0.1) H 05/14/20 09:17 Metamyelocytes # 0.0 K/mm3 05/14/20 09:17 Myelocytes # 0.0 K/mm3 05/14/20 09:17 Promyelocytes # 0.0 K/mm3 05/14/20 09:17 Blast Cells # 0.0 K/mm3 05/14/20 09:17 WBC Morphology Not Reportable 05/14/20 09:17 Hypersegmented Neuts Not Reportable 05/14/20 09:17 Hyposegmented Neuts Not Reportable 05/14/20 09:17 Hypogranular Neuts Not Reportable 05/14/20 09:17 Smudge Cells Not Reportable 05/14/20 09:17 Toxic Granulation Not Reportable 05/14/20 09:17 Toxic Vacuolation Not Reportable 05/14/20 09:17 Dohle Bodies Not Reportable 05/14/20 09:17 Pelger-Huet Anomaly Not Reportable 05/14/20 09:17 Jaycee Rods Not Reportable 05/14/20 09:17 Platelet Estimate Consistent w auto 05/14/20 09:17 Clumped Platelets Not Reportable 05/14/20 09:17 Plt Clumps, EDTA Not Reportable 05/14/20 09:17 Large Platelets Not Reportable 05/14/20 09:17 Giant Platelets Not Reportable 05/14/20 09:17 Platelet Satelliting Not Reportable 05/14/20 09:17 Plt Morphology Comment Not Reportable 05/14/20 09:17 RBC Morphology Normal 05/14/20 09:17 Dimorphic RBCs Not Reportable 05/14/20 09:17 Polychromasia Not Reportable 05/14/20 09:17 Hypochromasia Not Reportable 05/14/20 09:17 Poikilocytosis Not Reportable 05/14/20 09:17 Anisocytosis Not Reportable 05/14/20 09:17 Microcytosis Not Reportable 05/14/20 09:17 Macrocytosis Not Reportable 05/14/20 09:17 Spherocytes Not Reportable 05/14/20 09:17 Pappenheimer Bodies Not Reportable 05/14/20 09:17 Sickle Cells Not Reportable 05/14/20 09:17 Target Cells Not Reportable 05/14/20 09:17 Tear Drop Cells Not Reportable 05/14/20 09:17 Ovalocytes Not Reportable 05/14/20 09:17 Helmet Cells Not Reportable 05/14/20 09:17 Connor-Goldonna Bodies Not Reportable 05/14/20 09:17 Crowder Rings Not Reportable 05/14/20 09:17 Dirk Cells Not Reportable 05/14/20 09:17 Bite Cells Not Reportable 05/14/20 09:17 Crenated Cell Not Reportable 05/14/20 09:17 Elliptocytes Not Reportable 05/14/20 09:17 Acanthocytes (Spur) Not Reportable 05/14/20 09:17 Rouleaux Not Reportable 05/14/20 09:17 Hemoglobin C Crystals Not Reportable 05/14/20 09:17 Schistocytes Not Reportable 05/14/20 09:17 Malaria parasites Not Reportable 05/14/20 09:17 Jenaro Bodies Not Reportable 05/14/20 09:17 Hem Pathologist Commnt No 05/14/20 09:17 PT 15.1 Sec. (12.2-14.9) H 05/15/20 04:44 INR 1.17 (0.87-1.13) H 05/15/20 04:44 Sodium 135 mmol/L (137-145) L 05/16/20 08:59 Potassium 4.1 mmol/L (3.6-5.0) 05/16/20 08:59 Chloride 107.8 mmol/L (98-107) H 05/16/20 08:59 Carbon Dioxide 17 mmol/L (22-30) L 05/16/20 08:59 Anion Gap 14 mmol/L 05/16/20 08:59 BUN 33 mg/dL (7-17) H 05/16/20 08:59 Creatinine 1.5 mg/dL (0.6-1.2) H 05/16/20 08:59 Estimated GFR 34 ml/min 05/16/20 08:59 BUN/Creatinine Ratio 22 % 05/16/20 08:59 Glucose 282 mg/dL (65-100) H 05/16/20 08:59 POC Glucose 265 mg/dL (70-105) H 05/16/20 08:17 Lactic Acid 1.90 mmol/L (0.7-2.0) 05/14/20 05:35 Calcium 7.4 mg/dL (8.4-10.2) L 05/16/20 08:59 Phosphorus 1.80 mg/dL (2.5-4.5) L 05/16/20 08:59 Magnesium 1.80 mg/dL (1.7-2.3) 05/16/20 08:59 Total Bilirubin 0.50 mg/dL (0.1-1.2) 05/16/20 08:59 AST 48 units/L (5-40) H 05/16/20 08:59 ALT 23 units/L (7-56) 05/16/20 08:59 Alkaline Phosphatase 91 units/L (35-129) 05/16/20 08:59 Total Protein 4.6 g/dL (6.3-8.2) L D 05/16/20 08:59 Albumin 2.5 g/dL (3.9-5) L 05/16/20 08:59 Albumin/Globulin Ratio 1.2 % 05/16/20 08:59 Urine Color Yellow (Yellow) 05/14/20 02:08 Urine Turbidity Clear (Clear) 05/14/20 02:08 Urine pH 5.0 (5.0-7.0) 05/14/20 02:08 Ur Specific [place] 1.014 (1.003-1.030) 05/14/20 02:08 Urine Protein <15 mg/dl mg/dL (Negative) 05/14/20 02:08 Urine Glucose (UA) 50 mg/dL (Negative) 05/14/20 02:08 Urine Ketones Neg mg/dL (Negative) 05/14/20 02:08 Urine Blood Sm (Negative) 05/14/20 02:08 Urine Nitrite Neg (Negative) 05/14/20 02:08 Urine Bilirubin Neg (Negative) 05/14/20 02:08 Urine Urobilinogen < 2.0 mg/dL (<2.0) 05/14/20 02:08 Ur Leukocyte Esterase Neg (Negative) 05/14/20 02:08 Urine WBC (Auto) < 1.0 /HPF (0.0-6.0) 05/14/20 02:08 Urine RBC (Auto) 2.0 /HPF (0.0-6.0) 05/14/20 02:08 U Epithel Cells (Auto) < 1.0 /HPF (0-13.0) 05/14/20 02:08 Hyaline Casts 1 /LPF 05/14/20 02:08 Urine Mucus Few /HPF 05/14/20 02:08 Microbiology: Microbiology 05/13/20 23:25 Peripheral/Venous Blood Culture - Preliminary NO GROWTH AFTER 48 HOURS 05/13/20 23:25 Peripheral/Venous Blood Culture - Preliminary NO GROWTH AFTER 48 HOURS Mix/IV: Voiding Method External Female Catheter IV Catheter Type [Left Forearm INT / Saline Lock ] IV Catheter Type [Left Hand] INT / Saline Lock IV Catheter Type [Left INT / Saline Lock Antecubital] Active Medications - Current Medications Current Medications: Generic Name Dose Route Start Last Admin Trade Name Freq PRN Reason Stop Dose Admin Acetaminophen 650 mg 05/14/20 02:37 05/16/20 05:58 Tylenol PO 650 mg Q4H PRN Administration Pain MILD(1-3)/Fever >100.5/CORDOVA Dextrose 50 ml 05/14/20 02:37 D50w (25gm) Syringe IV Q30MIN PRN Hypoglycemia Protocol Heparin Sodium (Porcine) 5,000 unit 05/14/20 14:00 05/16/20 05:57 Heparin SUB-Q 5,000 unit Q8HR GINI Administration Metronidazole 500 mg in 100 mls @ 100 mls/hr 05/14/20 06:00 05/16/20 05:58 Flagyl 500 Mg/100 Ml IV 100 mls/hr Q8HR GINI Administration Protocol Levofloxacin/Dextrose 500 mg in 100 mls @ 100 mls/hr 05/15/20 10:00 05/15/20 11:29 Levaquin 500mg/100ml IV 100 mls/hr Q48HR GINI Administration Protocol Dextrose/Sodium Chloride 1,000 mls @ 125 mls/hr 05/14/20 23:45 05/16/20 07:59 D5ns IV 75 mls/hr DIRECT GINI Administration Insulin Human Lispro 0 unit 05/14/20 07:30 05/16/20 09:28 Humalog SUB-Q 4 unit ACHS GINI Administration Protocol Ondansetron HCl 4 mg 05/14/20 02:37 Zofran IV Q8H PRN Nausea And Vomiting Oxycodone/Acetaminophen 1 tab 05/15/20 14:15 05/15/20 18:23 Percocet 5/325 PO 1 tab Q6H PRN Administration Pain, Moderate (4-6) Sodium Bicarbonate 1,300 mg 05/15/20 14:00 05/16/20 10:34 Sodium Bicarbonate PO 1,300 mg TID GINI Administration Sodium Chloride 10 ml 05/14/20 10:00 05/16/20 10:35 Sodium Chloride Flush Syringe 10 Ml IV 10 ml BID GINI Administration Sodium Chloride 10 ml 05/14/20 02:37 Sodium Chloride Flush Syringe 10 Ml IV PRN PRN LINE FLUSH Nutrition/Malnutrition Assess - Dietary Evaluation Nutrition/Malnutrition Findings: Nutrition Notes Start: 05/14/20 13:34 Freq: Status: Active Protocol: Document 05/15/20 12:41 (Rec: 05/15/20 12:53 [id number]) Nutrition Notes 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 Stuart score 14. Pt reports UBW of 77 kg. Pt reports decreased appetite, abd pain/cramping and loose stools for 4 weeks. Per chart, pt NPO for procedures and will be advanvced to clear liquids. Pt not approprite for diet education at this time- will follow. Percent of energy/protein needs met: 0%/0% Burn Absent Trauma Absent GI Symptoms Diarrhea Current % PO Negligible Minimum of two criteria No physical signs of malnutrition #1 Nutrition Diagnosis Inadequate oral intake Etiology abd pain and diarrhea As Evidenced by Signs and Symptoms pt reports decreased appetite for 4 weeks Is patient on ventilator? No Is Patient Ambulatory and/or Out of Bed Yes REE-([place]-St. Jeor-ambulatory/OOB) [ 1742.325 NUTR.[id number]] Kcal/Kg value to use for calculation 17 Approximate Energy Requirements Using 1482 kcal/Kg Calculation Used for Recommendations Kcal/kg Additional Notes Pro: 55-82g (0.8-1.2 k/kg AdjBW 68.6kg) Fluid: 1 ml/kcal Nutrition Intervention Change Diet Order: Advance when medically able Goal #1 Diet advanancement when medically able Anticipated Discharge Needs: unable to determine at this time Follow-Up By: 05/18/20 Additional Comments FU for diet advancement and edu needs
[2020-05-16] MEDS: ONDANSETRON 4 MG/2 ML INJ IV PRN ×2 (11:16→23:08)
--- NOTE | 2020-05-16 11:20 | Progress Note ---
Assessment and Plan 1. Acute kidney injury: Vasomotor nephropathy in the setting of volume depletion and hypotension. CT abdomen negative for hydro. Urine studies ordered. Monitor renal function. Creatinine level is improving. Avoid nephrotoxic agents. Meds dosage based on GFR. 2. FEN: Acute Hyponatremia, 2/2 volume depletion, improved, monitor. Initial corrected Sodium level was 129. Anion-gap Metabolic acidosis, 2/2 Lactic acdiosis, monitor. Monitor lytes. 3. Colitis: On Levofloxacin and Flagyl. Per primary. 4. Severe sepsis, POA: Continue abx and follow cultures. 5. DM type 2: Accuchecks. 6. 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 Subjective: Patient was seen and examined at the bedside. Doing ok. - General Appearance General appearance: well-developed, well-nourished, appears stated age, obese, no distress HEENT: ATNC, KENNETH, hearing intact, vision intact Neck: supple Respiratory: ctab Cardiology: regular, S1S2, no murmur Gastrointestinal: normoactive bowel sounds, no tenderness, not distended Integumentary: no obvious rash Neurologic: no asterixis, alert and oriented x3, able to move extremities Ext: no edema noted Psychiatric: cooperative Subjective Date of service: 05/16/20 Principal diagnosis: colitis Objective - Vital Signs Vital signs: Vital Signs - 12hr 05/16/20 05/16/20 05/16/20 05:28 05:58 06:58 Temperature 101.3 F H Pulse Rate 99 H Respiratory 24 20 18 Rate Blood Pressure 160/71 O2 Sat by Pulse 95 Oximetry - Lab 05/16/20 08:59 05/16/20 08:59 Most recent lab results Calcium 7.4 mg/dL (8.4-10.2) L 05/16/20 08:59 Phosphorus 1.80 mg/dL (2.5-4.5) L 05/16/20 08:59 Magnesium 1.80 mg/dL (1.7-2.3) 05/16/20 08:59 Medications & Allergies - Medications Allergies/Adverse Reactions: Allergies morphine Allergy (Verified 05/13/20 22:58) Itching Penicillins Allergy (Verified 05/13/20 22:58) Hives Home Medications: Home Medications Medication Instructions Recorded Confirmed Last Taken Type glipiZIDE 10 mg PO BID 05/15/20 05/15/20 Unknown History hydroCHLOROthiazide [HCTZ] 25 mg PO QDAY 05/15/20 05/15/20 Unknown History lisinopriL [Zestril TAB] 40 mg PO QDAY 05/15/20 05/15/20 Unknown History Active Medications: Generic Name Dose Route Start Last Admin Trade Name Freq PRN Reason Stop Dose Admin Acetaminophen 650 mg 05/14/20 02:37 05/16/20 05:58 Tylenol PO 650 mg Q4H PRN Administration Pain MILD(1-3)/Fever >100.5/CORDOVA Dextrose 50 ml 05/14/20 02:37 D50w (25gm) Syringe IV Q30MIN PRN Hypoglycemia Protocol Heparin Sodium (Porcine) 5,000 unit 05/14/20 14:00 05/16/20 05:57 Heparin SUB-Q 5,000 unit Q8HR GINI Administration Metronidazole 500 mg in 100 mls @ 100 mls/hr 05/14/20 06:00 05/16/20 05:58 Flagyl 500 Mg/100 Ml IV 100 mls/hr Q8HR GINI Administration Protocol Levofloxacin/Dextrose 500 mg in 100 mls @ 100 mls/hr 05/15/20 10:00 05/15/20 11:29 Levaquin 500mg/100ml IV 100 mls/hr Q48HR GINI Administration Protocol Dextrose/Sodium Chloride 1,000 mls @ 125 mls/hr 05/14/20 23:45 05/16/20 07:59 D5ns IV 75 mls/hr DIRECT GINI Administration Insulin Human Lispro 0 unit 05/14/20 07:30 05/16/20 09:28 Humalog SUB-Q 4 unit ACHS GINI Administration Protocol Ondansetron HCl 4 mg 05/14/20 02:37 05/16/20 11:16 Zofran IV 4 mg Q8H PRN Administration Nausea And Vomiting Oxycodone/Acetaminophen 1 tab 05/15/20 14:15 05/15/20 18:23 Percocet 5/325 PO 1 tab Q6H PRN Administration Pain, Moderate (4-6) Sodium Bicarbonate 1,300 mg 05/15/20 14:00 05/16/20 10:34 Sodium Bicarbonate PO 1,300 mg TID GINI Administration Sodium Chloride 10 ml 05/14/20 10:00 05/16/20 10:35 Sodium Chloride Flush Syringe 10 Ml IV 10 ml BID GINI Administration Sodium Chloride 10 ml 05/14/20 02:37 Sodium Chloride Flush Syringe 10 Ml IV PRN PRN LINE FLUSH
[2020-05-16 11:33] LABS: Band Neutrophils # (Manual) 0.8 K/mm3; Basophils % (Manual) 0 % (0.0-1.8); Platelet Estimate Consistent w Auto; RBC Morphology Normal; Total Cells Counted 100
--- NOTE | 2020-05-16 12:50 | Gastroenterology Progress Note ---
Assessment and Plan GI: pt w/ colitis w/ signs improved - stool cx's pending - continue current IV antibiotics, await further ID input - continue clear liquid diet for now - no plans to scope at this time - will follow Subjective Date of service: 05/16/20 Principal diagnosis: colitis Interval history: pt reports overall symptoms improved. Reports some loose stools. Denies other complaints. Objective - Constitutional Vitals: Temp Pulse Resp BP Pulse Ox 101.3 F H 99 H 18 160/71 95 05/16/20 05:28 05/16/20 05:28 05/16/20 06:58 05/16/20 05:28 05/16/20 05:28 General appearance: no acute distress - EENT Eyes: PERRL - Respiratory Respiratory: bilateral: CTA - Cardiovascular Rhythm: regular Heart Sounds: Present: S1 & S2 - Gastrointestinal General gastrointestinal: Present: soft, non-tender, non-distended - Labs CBC & Chem 7: 05/16/20 08:59 05/16/20 08:59 Labs: Laboratory Results - last 24 hr 05/15/20 05/15/20 05/16/20 17:29 21:32 08:17 WBC RBC Hgb Hct MCV MCH MCHC RDW Plt Count Add Manual Diff Total Counted Seg Neuts % (Manual) Band Neutrophils % Lymphocytes % (Manual) Reactive Lymphs % (Man) Monocytes % (Manual) Eosinophils % (Manual) Basophils % (Manual) Metamyelocytes % Myelocytes % Promyelocytes % Blast Cells % Nucleated RBC % Seg Neutrophils # Man Band Neutrophils # Lymphocytes # (Manual) Abs React Lymphs (Man) Monocytes # (Manual) Eosinophils # (Manual) Basophils # (Manual) Metamyelocytes # Myelocytes # Promyelocytes # Blast Cells # WBC Morphology Hypersegmented Neuts Hyposegmented Neuts Hypogranular Neuts Smudge Cells Toxic Granulation Toxic Vacuolation Dohle Bodies Pelger-Huet Anomaly Jaycee Rods Platelet Estimate Clumped Platelets Plt Clumps, EDTA Large Platelets Giant Platelets Platelet Satelliting Plt Morphology Comment RBC Morphology Dimorphic RBCs Polychromasia Hypochromasia Poikilocytosis Anisocytosis Microcytosis Macrocytosis Spherocytes Pappenheimer Bodies Sickle Cells Target Cells Tear Drop Cells Ovalocytes Helmet Cells Connor-Halsey Bodies [place] Rings [place] Cells Bite Cells Crenated Cell Elliptocytes Acanthocytes (Spur) Rouleaux Hemoglobin C Crystals Schistocytes Malaria parasites Jenaro Bodies Hem Pathologist Commnt Sodium Potassium Chloride Carbon Dioxide Anion Gap BUN Creatinine Estimated GFR BUN/Creatinine Ratio Glucose POC Glucose 253 H 259 H 265 H Calcium Phosphorus Magnesium Total Bilirubin AST ALT Alkaline Phosphatase Total Protein Albumin Albumin/Globulin Ratio 05/16/20 05/16/20 08:59 08:59 WBC 21.0 H RBC 3.24 L Hgb 9.8 L Hct 29.1 L MCV 90 MCH 30 MCHC 34 RDW 14.4 Plt Count 218 Add Manual Diff Complete Total Counted 100 Seg Neuts % (Manual) 87.0 H Band Neutrophils % 4.0 Lymphocytes % (Manual) 6.0 L Reactive Lymphs % (Man) 0 Monocytes % (Manual) 1.0 Eosinophils % (Manual) 2.0 Basophils % (Manual) 0 Metamyelocytes % 0 Myelocytes % 0 Promyelocytes % 0 Blast Cells % 0 Nucleated RBC % Not Reportable Seg Neutrophils # Man 18.3 H Band Neutrophils # 0.8 Lymphocytes # (Manual) 1.3 Abs React Lymphs (Man) 0.0 Monocytes # (Manual) 0.2 Eosinophils # (Manual) 0.4 Basophils # (Manual) 0.0 Metamyelocytes # 0.0 Myelocytes # 0.0 Promyelocytes # 0.0 Blast Cells # 0.0 WBC Morphology Not Reportable Hypersegmented Neuts Not Reportable Hyposegmented Neuts Not Reportable Hypogranular Neuts Not Reportable Smudge Cells Not Reportable Toxic Granulation Not Reportable Toxic Vacuolation Not Reportable Dohle Bodies Not Reportable Pelger-Huet Anomaly Not Reportable Jaycee Rods Not Reportable Platelet Estimate Consistent w auto Clumped Platelets Not Reportable Plt Clumps, EDTA Not Reportable Large Platelets Not Reportable Giant Platelets Not Reportable Platelet Satelliting Not Reportable Plt Morphology Comment Not Reportable RBC Morphology Normal Dimorphic RBCs Not Reportable Polychromasia Not Reportable Hypochromasia Not Reportable Poikilocytosis Not Reportable Anisocytosis Not Reportable Microcytosis Not Reportable Macrocytosis Not Reportable Spherocytes Not Reportable Pappenheimer Bodies Not Reportable Sickle Cells Not Reportable Target Cells Not Reportable Tear Drop Cells Not Reportable Ovalocytes Not Reportable Helmet Cells Not Reportable Connor-Halsey Bodies Not Reportable [place] Rings Not Reportable Dirk Cells Not Reportable Bite Cells Not Reportable Crenated Cell Not Reportable Elliptocytes Not Reportable Acanthocytes (Spur) Not Reportable Rouleaux Not Reportable Hemoglobin C Crystals Not Reportable Schistocytes Not Reportable Malaria parasites Not Reportable Jenaro Bodies Not Reportable Hem Pathologist Commnt No Sodium 135 L Potassium 4.1 Chloride 107.8 H Carbon Dioxide 17 L Anion Gap 14 BUN 33 H Creatinine 1.5 H Estimated GFR 34 BUN/Creatinine Ratio 22 Glucose 282 H POC Glucose Calcium 7.4 L Phosphorus 1.80 L Magnesium 1.80 Total Bilirubin 0.50 AST 48 H ALT 23 Alkaline Phosphatase 91 Total Protein 4.6 L D Albumin 2.5 L Albumin/Globulin Ratio 1.2
[2020-05-16] MEDS: PHOS-NAK POWDER PACKET PO SCH ×3 (14:27→17:33)
[2020-05-16] MEDS ORDERED: SODIUM PHOSPHATE 45 MMOL in SODIUM CHLORIDE 0.9% 500 ML 500 ML IV ONE (14:29)
[2020-05-16] MEDS: oxyCODONE /ACETAMINOPHEN 5-325MG TAB PO PRN (14:48)
--- NOTE | 2020-05-16 17:13 | Event Note ---
Date: 05/16/20 I called and discussed with patient's [id number] Ms. Fine at [phone] in detail patient's condition, test reports Consultants recommendations, treatment plan, mild improvement of patient's condition. Patient had fall in the emergency room waiting area in the bathroom According to the note and Ms. Fine was very concerned about Ms. Figueroa's fall, I advised her to talk to the patient's nurse who will direct her to talk to the appropriate personnel in the the ER.
[2020-05-16] MEDS: glipiZIDE 10 MG TAB PO SCH (17:34)
[2020-05-16] MEDS ORDERED: FUROSEMIDE 40 MG/4 ML INJ IV ONE (18:00)
[2020-05-17] MEDS: metroNIDAZOLE/NS 500 MG/100 ML 500 MG/100 ML BAG IV SCH (05:38)
[2020-05-17] MEDS: HEPARIN 5,000 UNIT/1 ML VIAL SUB-Q SCH ×3 (05:38→21:52)
[2020-05-17] MEDS: D5W/0.9% NACL 1,000 ML IV SCH ×2 (06:14→17:51)
[2020-05-17] MEDS: glipiZIDE 10 MG TAB PO SCH ×2 (07:54→17:42)
[2020-05-17] MEDS: SODIUM BICARBONATE 650 MG TAB PO SCH ×3 (07:54→21:52)
[2020-05-17] MEDS: INSULIN LISPRO 100 UNIT/ML VIAL 3 mL SUB-Q SCH ×4 (07:54→21:53)
[2020-05-17 09:32] LABS: Hemolysis Index 132
[2020-05-17 09:35] LABS: BUN/Creatinine Ratio TNR; Blood Urea Nitrogen TNR mg/dL (7-17); Calcium TNR mg/dL (8.4-10.2)
--- NOTE | 2020-05-17 09:53 | Progress Note ---
Assessment and Plan Cultures: Blood culture 05/13/2020 no growth today A/P: 69-year-old female past medical history diabetes, hypertension admitted with colitis #Acute sepsis: Remains with fever, secondary to colitis. #Colitis: Patient reported history of C. difficile colitis 5 years ago. Patient is not better on antibiotics/fever continues. However her diarrhea resolved. #Diabetes: tight glycemic control for best outcomes. #WESLEY on CKD: Renally dose antibiotics Recs: -C. difficile stool tests have not been done due to no diarrhea for 48 hours -Stop Levaquin/Flagyl for now -Start vancomycin 125 mg p.o. 4 times daily -Obtain KUB -Monitor fever Rhonda Madrid MD [facility] ([facility]) Office [phone] Subjective Date of service: 05/17/20 Principal diagnosis: colitis Interval history: Patient feels okay, no diarrhea, no nausea no vomiting, noted low-grade fever 100.3. Objective - Exam Narrative Exam: General appearance: Alert in NAD Eyes: anicteric sclerae, moist conjunctivae; no lid-lag; PERRLA HENT: Atraumatic; oropharynx clear Lungs: CTA, with normal respiratory effort and no intercostal retractions CV: RRR no murmur Abdomen: Soft, distended, diffusely tender Extremities: no edema, no cyanosis Skin: Bilateral arms with ecchymosis Psych: Appropriate affect, alert and oriented to person, place and time. Neuro: alert and oriented x 3. Moving all extermities - Constitutional Vitals: Vital Signs Temp Pulse Resp BP Pulse Ox 99.9 F H 88 24 133/62 96 05/17/20 04:14 05/17/20 04:14 05/17/20 04:14 05/17/20 04:14 05/17/20 04:14 Temperature -Last 24 Hours Temperature 99.9 F Temperature 100.3 F Temperature 98.5 F Temperature 97.0 F - Labs CBC & Chem 7: 05/16/20 08:59 05/17/20 07:17 Labs: Abnormal lab results 05/16/20 05/16/20 05/16/20 Range/Units 08:59 08:59 14:33 WBC 21.0 H (4.5-11.0) K/mm3 RBC 3.24 L (3.65-5.03) M/mm3 Hgb 9.8 L (10.1-14.3) gm/dl Hct 29.1 L (30.3-42.9) % Seg Neuts % (Manual) 87.0 H (40.0-70.0) % Lymphocytes % (Manual) 6.0 L (13.4-35.0) % Seg Neutrophils # Man 18.3 H (1.8-7.7) K/mm3 Sodium 135 L (137-145) mmol/L Chloride 107.8 H (98-107) mmol/L Carbon Dioxide 17 L (22-30) mmol/L BUN 33 H (7-17) mg/dL Creatinine 1.5 H (0.6-1.2) mg/dL Glucose 282 H (65-100) mg/dL POC Glucose 278 H (70-105) mg/dL Calcium 7.4 L (8.4-10.2) mg/dL Phosphorus 1.80 L (2.5-4.5) mg/dL AST 48 H (5-40) units/L Total Protein 4.6 L D (6.3-8.2) g/dL Albumin 2.5 L (3.9-5) g/dL 05/16/20 05/16/20 05/17/20 Range/Units 17:39 22:07 07:56 WBC (4.5-11.0) K/mm3 RBC (3.65-5.03) M/mm3 Hgb (10.1-14.3) gm/dl Hct (30.3-42.9) % Seg Neuts % (Manual) (40.0-70.0) % Lymphocytes % (Manual) (13.4-35.0) % Seg Neutrophils # Man (1.8-7.7) K/mm3 Sodium (137-145) mmol/L Chloride (98-107) mmol/L Carbon Dioxide (22-30) mmol/L BUN (7-17) mg/dL Creatinine (0.6-1.2) mg/dL Glucose (65-100) mg/dL POC Glucose 265 H 165 H 209 H (70-105) mg/dL Calcium (8.4-10.2) mg/dL Phosphorus (2.5-4.5) mg/dL AST (5-40) units/L Total Protein (6.3-8.2) g/dL Albumin (3.9-5) g/dL
[2020-05-17] MEDS: ONDANSETRON 4 MG/2 ML INJ IV PRN ×2 (11:05→21:53)
--- NOTE | 2020-05-17 11:41 | XRay Report ---
ABDOMEN 1 VIEW(S) INDICATION / CLINICAL INFORMATION: Eval for colon dilation, toxic megacolon, C diff. COMPARISON: None available. FINDINGS: TUBES / LINES: None. BOWEL GAS PATTERN: No significant abnormality. FREE AIR / EXTRALUMINAL GAS: None seen. ADDITIONAL FINDINGS: No significant additional findings. IMPRESSION: No significant abnormality. No abnormality of the colon is appreciated on KUB. Signer Name: Shantanu Mckenzie Jr, MD Signed: 05/17/2020 11:37 AM Workstation Name: [id number]
[2020-05-17] MEDS: VANCOMYCIN 250 MG/10 ML ORAL LIQD PO SCH ×3 (13:33→23:00)
--- NOTE | 2020-05-17 14:03 | Gastroenterology Progress Note ---
Assessment and Plan GI: pt presents w/ colitis reports some improvement - reports some nausea, denies significant diarrhea, abdominal pain improving - noted antibiotics per ID - awaiting stool sample for C. diff -encouraged ambulation - follow labs including cbc - no plans to scope at this time - will advance diet slowly - will [id number] Subjective Date of service: 05/17/20 Principal diagnosis: colitis Interval history: - reports some nausea today, reports feeling of wanting to have bm but denies diarrhea. Encouraged to ambulate Objective - Constitutional Vitals: Temp Pulse Resp BP Pulse Ox 99.9 F H 88 24 133/62 96 05/17/20 04:14 05/17/20 04:14 05/17/20 04:14 05/17/20 04:14 05/17/20 04:14 General appearance: no acute distress - EENT Eyes: PERRL - Respiratory Respiratory: bilateral: CTA - Cardiovascular Rhythm: regular Heart Sounds: Present: S1 & S2 - Gastrointestinal General gastrointestinal: Present: soft, tender, non-distended - Labs CBC & Chem 7: 05/16/20 08:59 05/17/20 07:17 Labs: Laboratory Results - last 24 hr 05/16/20 05/16/20 05/16/20 14:33 17:39 22:07 Sodium Potassium Chloride Carbon Dioxide Anion Gap BUN Creatinine Estimated GFR BUN/Creatinine Ratio Glucose POC Glucose 278 H 265 H 165 H Calcium Phosphorus 05/17/20 05/17/20 05/17/20 07:17 07:56 13:38 Sodium TNR Potassium TNR Chloride TNR Carbon Dioxide TNR Anion Gap TNR BUN TNR Creatinine TNR Estimated GFR TNR BUN/Creatinine Ratio TNR Glucose TNR POC Glucose 209 H 249 H Calcium TNR Phosphorus TNR
--- NOTE | 2020-05-17 14:11 | Progress Note ---
Assessment and Plan 1. Acute kidney injury: Vasomotor nephropathy in the setting of volume depletion and hypotension. CT abdomen negative for hydro. Urine studies ordered. Monitor renal function. Creatinine level is improving. Avoid nephrotoxic agents. Meds dosage based on GFR. No labs from today. 2. FEN: Acute Hyponatremia, 2/2 volume depletion, improved, monitor. Anion-gap Metabolic acidosis, 2/2 Lactic acdiosis, monitor. Monitor lytes. 3. Colitis: On Vancomycin. Followed by ID. 4. Severe sepsis, POA: Continue abx and follow cultures. 5. DM type 2: Accuchecks. 6. Hypertension: Monitor BP and resume home meds as appropriate. Subjective: Patient was seen and examined at the bedside. Continues to have vomiting and diarrhea. - General Appearance General appearance: well-developed, well-nourished, appears stated age, obese, no distress HEENT: ATNC, KENNETH, hearing intact, vision intact Neck: supple Respiratory: ctab Cardiology: regular, S1S2, no murmur Gastrointestinal: normoactive bowel sounds, no tenderness, not distended Integumentary: no obvious rash Neurologic: no asterixis, alert and oriented x3, able to move extremities Ext: no edema noted Psychiatric: cooperative Subjective Date of service: 05/17/20 Principal diagnosis: colitis Objective - Vital Signs Vital signs: Vital Signs - 12hr 05/17/20 04:14 Temperature 99.9 F H Pulse Rate 88 Respiratory 24 Rate Blood Pressure 133/62 O2 Sat by Pulse 96 Oximetry - Lab 05/16/20 08:59 05/17/20 07:17 Most recent lab results Calcium TNR 05/17/20 07:17 Phosphorus TNR 05/17/20 07:17 Magnesium 1.80 mg/dL (1.7-2.3) 05/16/20 08:59 Medications & Allergies - Medications Allergies/Adverse Reactions: Allergies chicken derived Allergy (Verified 05/16/20 15:14) Swelling morphine Allergy (Verified 05/13/20 22:58) Itching Penicillins Allergy (Verified 05/13/20 22:58) Hives Home Medications: Home Medications Medication Instructions Recorded Confirmed Last Taken Type glipiZIDE 10 mg PO BID 05/15/20 05/15/20 Unknown History hydroCHLOROthiazide [HCTZ] 25 mg PO QDAY 05/15/20 05/15/20 Unknown History lisinopriL [Zestril TAB] 40 mg PO QDAY 05/15/20 05/15/20 Unknown History Active Medications: Generic Name Dose Route Start Last Admin Trade Name Cecille PRN Reason Stop Dose Admin Acetaminophen 650 mg 05/14/20 02:37 05/16/20 22:51 Tylenol PO 650 mg Q4H PRN Administration Pain MILD(1-3)/Fever >100.5/CORDOVA Dextrose 50 ml 05/14/20 02:37 D50w (25gm) Syringe IV Q30MIN PRN Hypoglycemia Protocol Glipizide 10 mg 05/16/20 17:00 05/17/20 07:54 Glucotrol PO 10 mg BIDDIAB GINI Administration Heparin Sodium (Porcine) 5,000 unit 05/14/20 14:00 05/17/20 05:38 Heparin SUB-Q 5,000 unit Q8HR GINI Administration Dextrose/Sodium Chloride 1,000 mls @ 75 mls/hr 05/16/20 18:00 05/17/20 06:14 D5ns IV 75 mls/hr DIRECT GINI Administration Insulin Human Lispro 0 unit 05/14/20 07:30 05/17/20 13:31 Humalog SUB-Q 3 unit ACHS GINI Administration Protocol Ondansetron HCl 4 mg 05/14/20 02:37 05/17/20 11:05 Zofran IV 4 mg Q8H PRN Administration Nausea And Vomiting Oxycodone/Acetaminophen 1 tab 05/15/20 14:15 05/16/20 14:48 Percocet 5/325 PO 1 tab Q6H PRN Administration Pain, Moderate (4-6) Sodium Bicarbonate 1,300 mg 05/15/20 14:00 05/17/20 07:54 Sodium Bicarbonate PO 1,300 mg TID GINI Administration Sodium Chloride 10 ml 05/14/20 10:00 05/17/20 11:08 Sodium Chloride Flush Syringe 10 Ml IV 10 ml BID GINI Administration Sodium Chloride 10 ml 05/14/20 02:37 Sodium Chloride Flush Syringe 10 Ml IV PRN PRN LINE FLUSH Vancomycin HCl 125 mg 05/17/20 12:00 05/17/20 13:33 Vancomycin Po PO 05/27/20 06:01 125 mg Q6HR GINI Administration
[2020-05-17 16:37] LABS: Calcium 7.4 mg/dL (8.4-10.2)
--- NOTE | 2020-05-17 20:02 | Progress Note ---
Assessment and Plan Assessment and plan: --Acute colitis Current Visit: Yes Status: Acute Plan to address problem: CT abdomen findings reviewed ID advised to stop Flagyl and Levaquin Recommend vancomycin oral ID and GI following, sips of water. Advanced to clear liquid diet --Leukocytosis; WBC 30 K-22.2-21.0 Current Visit: Yes Status: Acute Plan to address problem: secondary to sepsis, acute colitis We will follow cultures, follow WBC --Patient has history of C. difficile in the past; Current Visit: Yes Status: Acute Plan to address problem: ID recommend oral vancomycin Contact isolation, supportive care --Abdominal pain Current Visit: Yes Status: Acute Plan to address problem: Secondary to colitis, pain medications On antibiotics, mild improvement --Hypophosphatemia; Current Visit: Yes Status: Acute Plan to address problem: replenish with sodium phosphate Monitor electrolytes -- Hypotension; present on admission Current Visit: Yes Status: Acute Plan to address problem: Significantly improved blood pressures reasonable range I will continue IV fluids flow rate Fluid bolus if needed supportive care --Hyponatremia; mild improvement Current Visit: Yes Status: Acute Plan to address problem: Na level gradually improved from 1 25-1 35 Continue IV normal saline, closely monitor electrolytes --Severe malnutrition; due to underlying colitis Treat the underlying cause Supportive care nutrition supplements when patient is able to take oral --Acute kidney injury Current Visit: Yes Status: Acute Plan to address problem: Possibly prerenal acidemia, vasomotor nephropathy. IV hydration, monitor renal function, avoid nephrotoxins Significant improvement, cr improved from 3.3-1.5 Nephrology following --Patient gives h/o fall in the bathroom in ER; Current Visit: Yes Status: Acute Plan to address problem: superficial abrasions right upper extremity Wound and supportive care Dressing change --DVT prophylaxis Current Visit: Yes Status: Acute Plan to address problem: Patient placed on subcutaneous heparin --Full code status Current Visit: Yes Status: Acute Monitor closely and adjust management as needed Plan of care reviewed with the patient and her nurse GI and ID recommendations noted and appreciated Ambulate as tolerated Possible discharge in 1 -2 days if stable . I called patient's [id number] Ms. Fine on 05/16/2020 at [phone] and discussed in detail patient's condition treatment plan . Answered all her questions History Interval history: I have seen and examined the patient at the bedside this morning Multidisciplinary notes reviewed, patient's total current medications noted Patient feels better and used to have some vague abdominal pain and nausea vomiting Vital signs noted ID following Hospitalist Physical - Constitutional Vitals: Temp Pulse Resp BP Pulse Ox 100.8 F H 100 H 20 168/84 94 05/17/20 17:00 05/17/20 17:00 05/17/20 17:00 05/17/20 17:00 05/17/20 17:00 General appearance: Present: mild distress, well-nourished - EENT Eyes: Present: PERRL, EOM intact - Neck Neck: Present: supple, normal ROM - Respiratory Respiratory effort: normal Respiratory: bilateral: diminished, negative: rales, rhonchi, wheezing - Cardiovascular Rhythm: regular Heart Sounds: Present: S1 & S2 - Extremities Extremities: no ischemia, No edema - Abdominal General gastrointestinal: soft, non-tender, non-distended - Integumentary Integumentary: Present: clear, warm - Psychiatric Psychiatric: appropriate mood/affect, cooperative - Neurologic Neurologic: CNII-XII intact, moves all extremities Results - Labs CBC & Chem 7: 05/16/20 08:59 05/17/20 15:25 Labs: Laboratory Last Values WBC 21.0 K/mm3 (4.5-11.0) H 05/16/20 08:59 RBC 3.24 M/mm3 (3.65-5.03) L 05/16/20 08:59 Hgb 9.8 gm/dl (10.1-14.3) L 05/16/20 08:59 Hct 29.1 % (30.3-42.9) L 05/16/20 08:59 MCV 90 fl (79-97) 05/16/20 08:59 MCH 30 pg (28-32) 05/16/20 08:59 MCHC 34 % (30-34) 05/16/20 08:59 RDW 14.4 % (13.2-15.2) 05/16/20 08:59 Plt Count 218 K/mm3 (140-440) 05/16/20 08:59 Lymph % (Auto) 9.6 % (13.4-35.0) L 05/15/20 04:44 Lamb % (Auto) 6.6 % (0.0-7.3) 05/15/20 04:44 Eos % (Auto) 2.4 % (0.0-4.3) 05/15/20 04:44 Baso % (Auto) 0.4 % (0.0-1.8) 05/15/20 04:44 Lymph # (Auto) 2.1 K/mm3 (1.2-5.4) 05/15/20 04:44 Lamb # (Auto) 1.5 K/mm3 (0.0-0.8) H 05/15/20 04:44 Eos # (Auto) 0.5 K/mm3 (0.0-0.4) H 05/15/20 04:44 Baso # (Auto) 0.1 K/mm3 (0.0-0.1) 05/15/20 04:44 Add Manual Diff Complete 05/16/20 08:59 Total Counted 100 05/16/20 08:59 Seg Neutrophils % 81.0 % (40.0-70.0) H 05/15/20 04:44 Seg Neuts % (Manual) 87.0 % (40.0-70.0) H 05/16/20 08:59 Band Neutrophils % 4.0 % 05/16/20 08:59 Lymphocytes % (Manual) 6.0 % (13.4-35.0) L 05/16/20 08:59 Reactive Lymphs % (Man) 0 % 05/16/20 08:59 Monocytes % (Manual) 1.0 % (0.0-7.3) 05/16/20 08:59 Eosinophils % (Manual) 2.0 % (0.0-4.3) 05/16/20 08:59 Basophils % (Manual) 0 % (0.0-1.8) 05/16/20 08:59 Metamyelocytes % 0 % 05/16/20 08:59 Myelocytes % 0 % 05/16/20 08:59 Promyelocytes % 0 % 05/16/20 08:59 Blast Cells % 0 % 05/16/20 08:59 Nucleated RBC % Not Reportable 05/16/20 08:59 Seg Neutrophils # 18.0 K/mm3 (1.8-7.7) H 05/15/20 04:44 Seg Neutrophils # Man 18.3 K/mm3 (1.8-7.7) H 05/16/20 08:59 Band Neutrophils # 0.8 K/mm3 05/16/20 08:59 Lymphocytes # (Manual) 1.3 K/mm3 (1.2-5.4) 05/16/20 08:59 Abs React Lymphs (Man) 0.0 K/mm3 05/16/20 08:59 Monocytes # (Manual) 0.2 K/mm3 (0.0-0.8) 05/16/20 08:59 Eosinophils # (Manual) 0.4 K/mm3 (0.0-0.4) 05/16/20 08:59 Basophils # (Manual) 0.0 K/mm3 (0.0-0.1) 05/16/20 08:59 Metamyelocytes # 0.0 K/mm3 05/16/20 08:59 Myelocytes # 0.0 K/mm3 05/16/20 08:59 Promyelocytes # 0.0 K/mm3 05/16/20 08:59 Blast Cells # 0.0 K/mm3 05/16/20 08:59 WBC Morphology Not Reportable 05/16/20 08:59 Hypersegmented Neuts Not Reportable 05/16/20 08:59 Hyposegmented Neuts Not Reportable 05/16/20 08:59 Hypogranular Neuts Not Reportable 05/16/20 08:59 Smudge Cells Not Reportable 05/16/20 08:59 Toxic Granulation Not Reportable 05/16/20 08:59 Toxic Vacuolation Not Reportable 05/16/20 08:59 Dohle Bodies Not Reportable 05/16/20 08:59 Pelger-Huet Anomaly Not Reportable 05/16/20 08:59 Jaycee Rods Not Reportable 05/16/20 08:59 Platelet Estimate Consistent w auto 05/16/20 08:59 Clumped Platelets Not Reportable 05/16/20 08:59 Plt Clumps, EDTA Not Reportable 05/16/20 08:59 Large Platelets Not Reportable 05/16/20 08:59 Giant Platelets Not Reportable 05/16/20 08:59 Platelet Satelliting Not Reportable 05/16/20 08:59 Plt Morphology Comment Not Reportable 05/16/20 08:59 RBC Morphology Normal 05/16/20 08:59 Dimorphic RBCs Not Reportable 05/16/20 08:59 Polychromasia Not Reportable 05/16/20 08:59 Hypochromasia Not Reportable 05/16/20 08:59 Poikilocytosis Not Reportable 05/16/20 08:59 Anisocytosis Not Reportable 05/16/20 08:59 Microcytosis Not Reportable 05/16/20 08:59 Macrocytosis Not Reportable 05/16/20 08:59 Spherocytes Not Reportable 05/16/20 08:59 Pappenheimer Bodies Not Reportable 05/16/20 08:59 Sickle Cells Not Reportable 05/16/20 08:59 Target Cells Not Reportable 05/16/20 08:59 Tear Drop Cells Not Reportable 05/16/20 08:59 Ovalocytes Not Reportable 05/16/20 08:59 Helmet Cells Not Reportable 05/16/20 08:59 [place] Bodies Not Reportable 05/16/20 08:59 [place] Rings Not Reportable 05/16/20 08:59 Dirk Cells Not Reportable 05/16/20 08:59 Bite Cells Not Reportable 05/16/20 08:59 Crenated Cell Not Reportable 05/16/20 08:59 Elliptocytes Not Reportable 05/16/20 08:59 Acanthocytes (Spur) Not Reportable 05/16/20 08:59 Rouleaux Not Reportable 05/16/20 08:59 Hemoglobin C Crystals Not Reportable 05/16/20 08:59 Schistocytes Not Reportable 05/16/20 08:59 Malaria parasites Not Reportable 05/16/20 08:59 Jenaro Bodies Not Reportable 05/16/20 08:59 Hem Pathologist Commnt No 05/16/20 08:59 PT 15.1 Sec. (12.2-14.9) H 05/15/20 04:44 INR 1.17 (0.87-1.13) H 05/15/20 04:44 Sodium 139 mmol/L (137-145) 05/17/20 15:25 Potassium 3.3 mmol/L (3.6-5.0) L 05/17/20 15:25 Chloride 108.4 mmol/L (98-107) H 05/17/20 15:25 Carbon Dioxide 20 mmol/L (22-30) L 05/17/20 15:25 Anion Gap 14 mmol/L 05/17/20 15:25 BUN 23 mg/dL (7-17) H 05/17/20 15:25 Creatinine 1.2 mg/dL (0.6-1.2) 05/17/20 15:25 Estimated GFR 44 ml/min 05/17/20 15:25 BUN/Creatinine Ratio 19 % 05/17/20 15:25 Glucose 250 mg/dL (65-100) H 05/17/20 15:25 POC Glucose 303 mg/dL (70-105) H 05/17/20 17:14 Lactic Acid 1.90 mmol/L (0.7-2.0) 05/14/20 05:35 Calcium 7.4 mg/dL (8.4-10.2) L 05/17/20 15:25 Phosphorus TNR 05/17/20 07:17 Magnesium 1.80 mg/dL (1.7-2.3) 05/16/20 08:59 Total Bilirubin 0.50 mg/dL (0.1-1.2) 05/16/20 08:59 AST 48 units/L (5-40) H 05/16/20 08:59 ALT 23 units/L (7-56) 05/16/20 08:59 Alkaline Phosphatase 91 units/L (35-129) 05/16/20 08:59 Total Protein 4.6 g/dL (6.3-8.2) L D 05/16/20 08:59 Albumin 2.5 g/dL (3.9-5) L 05/16/20 08:59 Albumin/Globulin Ratio 1.2 % 05/16/20 08:59 Urine Color Yellow (Yellow) 05/14/20 02:08 Urine Turbidity Clear (Clear) 05/14/20 02:08 Urine pH 5.0 (5.0-7.0) 05/14/20 02:08 Ur Specific [place] 1.014 (1.003-1.030) 05/14/20 02:08 Urine Protein <15 mg/dl mg/dL (Negative) 05/14/20 02:08 Urine Glucose (UA) 50 mg/dL (Negative) 05/14/20 02:08 Urine Ketones Neg mg/dL (Negative) 05/14/20 02:08 Urine Blood Sm (Negative) 05/14/20 02:08 Urine Nitrite Neg (Negative) 05/14/20 02:08 Urine Bilirubin Neg (Negative) 05/14/20 02:08 Urine Urobilinogen < 2.0 mg/dL (<2.0) 05/14/20 02:08 Ur Leukocyte Esterase Neg (Negative) 05/14/20 02:08 Urine WBC (Auto) < 1.0 /HPF (0.0-6.0) 05/14/20 02:08 Urine RBC (Auto) 2.0 /HPF (0.0-6.0) 05/14/20 02:08 U Epithel Cells (Auto) < 1.0 /HPF (0-13.0) 05/14/20 02:08 Hyaline Casts 1 /LPF 05/14/20 02:08 Urine Mucus Few /HPF 05/14/20 02:08 Microbiology: Microbiology 05/14/20 02:08 Urine,Clean Catch Urine Culture - Final 05/13/20 23:25 Peripheral/Venous Blood Culture - Preliminary NO GROWTH AFTER 72 HOURS 05/13/20 23:25 Peripheral/Venous Blood Culture - Preliminary NO GROWTH AFTER 72 HOURS Mix/IV: Voiding Method Bedside Commode IV Catheter Type [Left Forearm Peripheral IV ] IV Catheter Type [Left Hand] INT / Saline Lock IV Catheter Type [Left INT / Saline Lock Antecubital] Active Medications - Current Medications Current Medications: Generic Name Dose Route Start Last Admin Trade Name Freq PRN Reason Stop Dose Admin Acetaminophen 650 mg 05/14/20 02:37 05/16/20 22:51 Tylenol PO 650 mg Q4H PRN Administration Pain MILD(1-3)/Fever >100.5/CORDOVA Dextrose 50 ml 05/14/20 02:37 D50w (25gm) Syringe IV Q30MIN PRN Hypoglycemia Protocol Glipizide 10 mg 05/16/20 17:00 05/17/20 17:42 Glucotrol PO 10 mg BIDDIAB GINI Administration Heparin Sodium (Porcine) 5,000 unit 05/14/20 14:00 05/17/20 17:41 Heparin SUB-Q 5,000 unit Q8HR GINI Administration Dextrose/Sodium Chloride 1,000 mls @ 75 mls/hr 05/16/20 18:00 05/17/20 17:51 D5ns IV 75 mls/hr DIRECT GINI Administration Insulin Human Lispro 0 unit 10/23/20 07:30 05/17/20 17:42 Humalog SUB-Q 4 unit ACHS GINI Administration Protocol Ondansetron HCl 4 mg 05/14/20 02:37 05/17/20 11:05 Zofran IV 4 mg Q8H PRN Administration Nausea And Vomiting Oxycodone/Acetaminophen 1 tab 05/15/20 14:15 05/16/20 14:48 Percocet 5/325 PO 1 tab Q6H PRN Administration Pain, Moderate (4-6) Sodium Bicarbonate 1,300 mg 05/15/20 14:00 05/17/20 17:41 Sodium Bicarbonate PO 1,300 mg TID GINI Administration Sodium Chloride 10 ml 05/14/20 10:00 05/17/20 11:08 Sodium Chloride Flush Syringe 10 Ml IV 10 ml BID GINI Administration Sodium Chloride 10 ml 05/14/20 02:37 Sodium Chloride Flush Syringe 10 Ml IV PRN PRN LINE FLUSH Vancomycin HCl 125 mg 05/17/20 12:00 05/17/20 17:45 Vancomycin Po PO 05/27/20 06:01 125 mg Q6HR GINI Administration Nutrition/Malnutrition Assess - Dietary Evaluation Nutrition/Malnutrition Findings: Nutrition Notes Start: 05/14/20 13:34 Freq: Status: Active Protocol: Document 05/15/20 12:41 (Rec: 05/15/20 12:53 [id number]) Nutrition Notes 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 Stuart score 14. Pt reports UBW of 77 kg. Pt reports decreased appetite, abd pain/cramping and loose stools for 4 weeks. Per chart, pt NPO for procedures and will be advanvced to clear liquids. Pt not approprite for diet education at this time- will follow. Percent of energy/protein needs met: 0%/0% Burn Absent Trauma Absent GI Symptoms Diarrhea Current % PO Negligible Minimum of two criteria No physical signs of malnutrition #1 Nutrition Diagnosis Inadequate oral intake Etiology abd pain and diarrhea As Evidenced by Signs and Symptoms pt reports decreased appetite for 4 weeks Is patient on ventilator? No Is Patient Ambulatory and/or Out of Bed Yes [facility] [ 1742.325 NUTR.[id number]] Kcal/Kg value to use for calculation 17 Approximate Energy Requirements Using 1482 kcal/Kg Calculation Used for Recommendations Kcal/kg Additional Notes Pro: 55-82g (0.8-1.2 k/kg AdjBW 68.6kg) Fluid: 1 ml/kcal Nutrition Intervention Change Diet Order: Advance when medically able Goal #1 Diet advanancement when medically able Anticipated Discharge Needs: unable to determine at this time Follow-Up By: 05/18/20 Additional Comments FU for diet advancement and edu needs
[2020-05-17] MEDS ORDERED: SODIUM BICARBONATE 650 MG TAB ONE (23:44)
[2020-05-18] MEDS ORDERED: glipiZIDE 10 MG TAB ONE ×2 (09:00→17:30)
[2020-05-18] MEDS ORDERED: HEPARIN 5,000 UNIT/1 ML VIAL ONE ×2 (09:00→13:00)
[2020-05-18] MEDS ORDERED: SODIUM BICARBONATE 650 MG TAB ONE ×2 (09:00→13:00)
[2020-05-18] MEDS ORDERED: D5NS 1000 ML IV SOLN IV ONE (13:00)
[2020-05-18] MEDS: HEPARIN 5,000 UNIT/1 ML VIAL SUB-Q SCH ×2 (18:21→21:51)
[2020-05-18] MEDS: VANCOMYCIN 250 MG/10 ML ORAL LIQD PO SCH ×3 (18:21→23:02)
[2020-05-18] MEDS: INSULIN LISPRO 100 UNIT/ML VIAL 3 mL SUB-Q SCH ×2 (18:22→21:50)
[2020-05-18] MEDS: SODIUM BICARBONATE 650 MG TAB PO SCH ×2 (18:22→21:51)
[2020-05-18] MEDS: glipiZIDE 10 MG TAB PO SCH (18:22)
[2020-05-18] MEDS: PHOS-NAK POWDER PACKET PO SCH (18:23)
--- NOTE | 2020-05-18 19:44 | Event Note ---
Date: 05/18/20 Today [employer] were down; I have seen and examined the patient at the bedside today morning Please refer to detailed today's note in the paper chart
--- NOTE | 2020-05-18 19:50 | Progress Note ---
Assessment and Plan 1. Acute kidney injury: Vasomotor nephropathy in the setting of volume depletion and hypotension. CT abdomen negative for hydro. Urine studies ordered. Monitor renal function. Creatinine level is improving. Avoid nephrotoxic agents. Meds dosage based on GFR. No labs from today. 2. FEN: Acute Hyponatremia, 2/2 volume depletion, improved, monitor. Anion-gap Metabolic acidosis, 2/2 Lactic acdiosis, monitor. Monitor lytes. 3. Colitis: On Vancomycin. Followed by ID. 4. Severe sepsis, POA: Continue abx and follow cultures. 5. DM type 2: Accuchecks. 6. Hypertension: Monitor BP and resume home meds as appropriate. Subjective: Patient was seen and examined at the bedside. Doing better. - General Appearance General appearance: well-developed, well-nourished, appears stated age, obese, no distress HEENT: ATNC, KENNETH, hearing intact, vision intact Neck: supple Respiratory: ctab Cardiology: regular, S1S2, no murmur Gastrointestinal: normoactive bowel sounds, no tenderness, not distended Integumentary: no obvious rash Neurologic: no asterixis, alert and oriented x3, able to move extremities Ext: no edema noted Psychiatric: cooperative Subjective Date of service: 05/18/20 Principal diagnosis: colitis Objective - Lab 05/16/20 08:59 05/17/20 15:25 Most recent lab results Calcium 7.4 mg/dL (8.4-10.2) L 05/17/20 15:25 Phosphorus TNR 05/17/20 07:17 Magnesium 1.80 mg/dL (1.7-2.3) 05/16/20 08:59 Medications & Allergies - Medications Allergies/Adverse Reactions: Allergies chicken derived Allergy (Verified 05/16/20 15:14) Swelling morphine Allergy (Verified 05/13/20 22:58) Itching Penicillins Allergy (Verified 05/13/20 22:58) Hives Home Medications: Home Medications Medication Instructions Recorded Confirmed Last Taken Type glipiZIDE 10 mg PO BID 05/15/20 05/15/20 Unknown History hydroCHLOROthiazide [HCTZ] 25 mg PO QDAY 05/15/20 05/15/20 Unknown History lisinopriL [Zestril TAB] 40 mg PO QDAY 10/24/20 10/24/20 Unknown History Active Medications: Generic Name Dose Route Start Last Admin Trade Name Freq PRN Reason Stop Dose Admin Acetaminophen 650 mg 05/14/20 02:37 05/16/20 22:51 Tylenol PO 650 mg Q4H PRN Administration Pain MILD(1-3)/Fever >100.5/CORDOVA Dextrose 50 ml 05/14/20 02:37 D50w (25gm) Syringe IV Q30MIN PRN Hypoglycemia Protocol Glipizide 10 mg 05/16/20 17:00 05/18/20 18:22 Glucotrol PO Not Given BIDDIAB [facility] Heparin Sodium (Porcine) 5,000 unit 05/14/20 14:00 05/18/20 18:21 Heparin SUB-Q Not Given Q8HR [facility] Dextrose/Sodium Chloride 1,000 mls @ 75 mls/hr 05/16/20 18:00 05/17/20 17:51 D5ns IV 75 mls/hr DIRECT GINI Administration Insulin Human Lispro 0 unit 05/14/20 07:30 05/18/20 18:22 Humalog SUB-Q Not Given ACHS [facility] Protocol Ondansetron HCl 4 mg 05/14/20 02:37 05/17/20 21:53 Zofran IV 4 mg Q8H PRN Administration Nausea And Vomiting Oxycodone/Acetaminophen 1 tab 05/15/20 14:15 05/16/20 14:48 Percocet 5/325 PO 1 tab Q6H PRN Administration Pain, Moderate (4-6) Sodium Bicarbonate 1,300 mg 05/15/20 14:00 05/18/20 18:22 Sodium Bicarbonate PO Not Given TID [facility] Sodium Chloride 10 ml 05/14/20 10:00 05/18/20 18:23 Sodium Chloride Flush Syringe 10 Ml IV Not Given BID GINI Sodium Chloride 10 ml 05/14/20 02:37 Sodium Chloride Flush Syringe 10 Ml IV PRN PRN LINE FLUSH Vancomycin HCl 125 mg 05/17/20 12:00 05/18/20 18:22 Vancomycin Po PO 05/27/20 06:01 Not Given Q6HR [facility]
--- NOTE | 2020-05-18 20:33 | Progress Note ---
Assessment and Plan Cultures: Blood culture 05/13/2020 no growth today A/P: 69-year-old female past medical history diabetes, hypertension admitted with colitis #Acute sepsis: Remains with fever, secondary to colitis. #Colitis: Patient reported history of C. difficile colitis 5 years ago. Patient is not better on antibiotics/fever continues. However her diarrhea resolved. #Diabetes: tight glycemic control for best outcomes. #WESLEY on CKD: Renally dose antibiotics Recs: -C. difficile stool tests have not been done due to no diarrhea for 48 hours -Continue vancomycin 125 mg p.o. 4 times daily -Monitor fever MD [facility] ([facility]) Office [phone] Subjective Date of service: 05/18/20 Principal diagnosis: colitis Interval history: Patient feels bettr no diarrhea remains with fever Objective - Exam Narrative Exam: General appearance: Alert in NAD Eyes: anicteric sclerae, moist conjunctivae; no lid-lag; PERRLA HENT: Atraumatic; oropharynx clear Lungs: CTA, with normal respiratory effort and no intercostal retractions CV: RRR no murmur Abdomen: Soft, distended, diffusely tender Extremities: no edema, no cyanosis Skin: Bilateral arms with ecchymosis Psych: Appropriate affect, alert and oriented to person, place and time. Neuro: alert and oriented x 3. Moving all extermities - Constitutional Vitals: Vital Signs Temp Pulse Resp BP Pulse Ox 100.8 F H 100 H 20 168/84 94 05/17/20 17:00 05/17/20 17:00 05/17/20 17:00 05/17/20 17:00 05/17/20 17:00 - Labs CBC & Chem 7: 05/16/20 08:59 05/17/20 15:25 Labs: Abnormal lab results 05/17/20 05/18/20 05/18/20 Range/Units 21:26 08:48 13:00 POC Glucose 317 H 240 H 167 H (70-105) mg/dL 05/18/20 Range/Units 17:04 POC Glucose 159 H (70-105) mg/dL
--- NOTE | 2020-05-18 20:41 | Gastroenterology Progress Note ---
Assessment and Plan GI: pt presents w/ colitis reports some improvement - reports overall symptoms improved today w/ decrease abdominal pain or diarrhea - noted antibiotics per ID - awaiting stool sample for C. diff, pt reports unable to provide stool -encouraged ambulation - follow labs including cbc - no plans to scope at this time - will advance diet slowly - will [id number] Subjective Date of service: 05/18/20 Principal diagnosis: colitis Interval history: - pt reports doing feeling better. Denies diarrhea, decrease abdominal pain. Wants diet advanced Objective - Constitutional Vitals: Temp Pulse Resp BP Pulse Ox 100.8 F H 100 H 20 168/84 94 05/17/20 17:00 05/17/20 17:00 05/17/20 17:00 05/17/20 17:00 05/17/20 17:00 General appearance: no acute distress - EENT Eyes: PERRL - Respiratory Respiratory: bilateral: CTA - Cardiovascular Rhythm: regular Heart Sounds: Present: S1 & S2 - Gastrointestinal General gastrointestinal: Present: soft, non-tender, non-distended - Labs CBC & Chem 7: 05/16/20 08:59 05/17/20 15:25 Labs: Laboratory Results - last 24 hr 05/17/20 05/18/20 05/18/20 21:26 08:48 13:00 POC Glucose 317 H 240 H 167 H 05/18/20 17:04 POC Glucose 159 H
[2020-05-18] MEDS ORDERED: ALPRAZolam 0.5 MG TAB PO PRN (22:02)
[2020-05-19] MEDS: HEPARIN 5,000 UNIT/1 ML VIAL SUB-Q SCH ×3 (05:52→22:19)
[2020-05-19] MEDS: VANCOMYCIN 250 MG/10 ML ORAL LIQD PO SCH ×3 (05:53→17:46)
[2020-05-19] MEDS: INSULIN LISPRO 100 UNIT/ML VIAL 3 mL SUB-Q SCH ×4 (07:30→22:54)
[2020-05-19 08:55] LABS: BUN/Creatinine Ratio 26; Blood Urea Nitrogen 23 mg/dL (7-17); Calcium 7.4 mg/dL (8.4-10.2); Hemolysis Index 5
--- NOTE | 2020-05-19 10:23 | Progress Note ---
Assessment and Plan Cultures: Blood culture 05/13/2020 no growth today A/P: 69-year-old female past medical history diabetes, hypertension admitted with colitis #Acute sepsis: Remains with fever, secondary to colitis. #Colitis: Patient reported history of C. difficile colitis 5 years ago. Patient is not better on antibiotics/fever continues. However her diarrhea resolved. #Diabetes: tight glycemic control for best outcomes. #WESLEY on CKD: Renally dose antibiotics Recs: -C. difficile stool tests not collected since diarrhea improved, will cancel -Continue vancomycin 125 mg p.o. 4 times daily total 14 days -Monitor fever -Monitor leukocytosis, If improving okay to discharge home Rhonda Madrid MD [facility] ([facility]) Office [phone] Subjective Date of service: 05/19/20 Principal diagnosis: colitis Interval history: Patient has some loose stool overnight, no fever for 48 hours Objective - Exam Narrative Exam: General appearance: Alert in NAD Eyes: anicteric sclerae, moist conjunctivae; no lid-lag; PERRLA HENT: Atraumatic; oropharynx clear Lungs: CTA, with normal respiratory effort and no intercostal retractions CV: RRR no murmur Abdomen: Soft, distended, nontender Extremities: no edema, no cyanosis Skin: Bilateral arms with ecchymosis Psych: Appropriate affect, alert and oriented to person, place and time. Neuro: alert and oriented x 3. Moving all extermities - Constitutional Vitals: Vital Signs Temp Pulse Resp BP Pulse Ox 97.3 F L 83 16 104/50 97 05/19/20 04:38 05/19/20 04:38 05/19/20 04:38 05/19/20 04:38 05/19/20 04:38 Temperature -Last 24 Hours Temperature 97.3 F Temperature 98.4 F Temperature 97.9 F - Labs CBC & Chem 7: 05/16/20 08:59 05/19/20 06:30 Labs: Abnormal lab results 05/18/20 05/18/20 05/18/20 Range/Units 08:48 13:00 17:04 Potassium (3.6-5.0) mmol/L BUN (7-17) mg/dL Glucose (65-100) mg/dL POC Glucose 240 H 167 H 159 H (70-105) mg/dL Calcium (8.4-10.2) mg/dL Phosphorus (2.5-4.5) mg/dL 05/18/20 05/19/20 Range/Units 22:05 06:30 Potassium 3.0 L (3.6-5.0) mmol/L BUN 23 H (7-17) mg/dL Glucose 101 H (65-100) mg/dL POC Glucose 189 H (70-105) mg/dL Calcium 7.4 L (8.4-10.2) mg/dL Phosphorus 1.50 L (2.5-4.5) mg/dL
[2020-05-19] MEDS: glipiZIDE 10 MG TAB PO SCH ×2 (10:41→17:40)
[2020-05-19] MEDS: SODIUM BICARBONATE 650 MG TAB PO SCH ×3 (10:41→20:18)
--- NOTE | 2020-05-19 11:03 | Progress Note ---
Assessment and Plan 1. Acute kidney injury: Vasomotor nephropathy in the setting of volume depletion and hypotension. CT abdomen negative for hydro. Urine studies ordered. Monitor renal function. Creatinine level is better. Avoid nephrotoxic agents. Meds dosage based on GFR. 2. FEN: Acute Hyponatremia, 2/2 volume depletion, improved, monitor. Anion-gap Metabolic acidosis, improved, monitor. Replete K and Phos. Monitor lytes. 3. Colitis: On Vancomycin. Followed by ID. 4. Severe sepsis, POA: Followed by ID. 5. DM type 2: Accuchecks. 6. Hypertension: Monitor BP and resume home meds as appropriate. Subjective: Patient was seen and examined at the bedside. Doing better. - General Appearance General appearance: well-developed, well-nourished, appears stated age, obese, no distress HEENT: ATNC, KENNETH, hearing intact, vision intact Neck: supple Respiratory: ctab Cardiology: regular, S1S2, no murmur Gastrointestinal: normoactive bowel sounds, no tenderness, not distended Integumentary: no obvious rash Neurologic: no asterixis, alert and oriented x3, able to move extremities Ext: no edema noted Psychiatric: cooperative Subjective Date of service: 05/19/20 Principal diagnosis: colitis Objective - Vital Signs Vital signs: Vital Signs - 12hr 05/18/20 05/19/20 23:08 04:38 Temperature 98.4 F 97.3 F L Pulse Rate 69 83 Respiratory 20 16 Rate Blood Pressure 104/50 Blood Pressure 137/67 [Right] O2 Sat by Pulse 97 97 Oximetry - Lab 05/19/20 11:14 05/19/20 06:30 Most recent lab results Calcium 7.4 mg/dL (8.4-10.2) L 05/19/20 06:30 Phosphorus 1.50 mg/dL (2.5-4.5) L 05/19/20 06:30 Magnesium 1.80 mg/dL (1.7-2.3) 05/16/20 08:59 Medications & Allergies - Medications Allergies/Adverse Reactions: Allergies chicken derived Allergy (Verified 05/16/20 15:14) Swelling morphine Allergy (Verified 05/13/20 22:58) Itching Penicillins Allergy (Verified 05/13/20 22:58) Hives Home Medications: Home Medications Medication Instructions Recorded Confirmed Last Taken Type glipiZIDE mg PO BID 05/15/20 05/15/20 Unknown History hydroCHLOROthiazide [HCTZ] 25 mg PO QDAY 05/15/20 05/15/20 Unknown History lisinopriL [Zestril TAB] 40 mg PO QDAY 05/15/20 05/15/20 Unknown History Active Medications: Generic Name Dose Route Start Last Admin Trade Name Freq PRN Reason Stop Dose Admin Acetaminophen 650 mg 05/14/20 02:37 05/16/20 22:51 Tylenol PO 650 mg Q4H PRN Administration Pain MILD(1-3)/Fever >100.5/CORDOVA Alprazolam 0.5 mg 05/18/20 22:02 05/18/20 23:02 Xanax PO 0.5 mg HS PRN Administration Anxiety Dextrose 50 ml 05/14/20 02:37 D50w (25gm) Syringe IV Q30MIN PRN Hypoglycemia Protocol Glipizide 10 mg 05/16/20 17:00 05/19/20 10:41 Glucotrol PO 10 mg BIDDIAB GINI Administration Heparin Sodium (Porcine) 5,000 unit 05/14/20 14:00 05/19/20 05:52 Heparin SUB-Q 5,000 unit Q8HR GINI Administration Potassium Phosphate 40 mmol/ 513.3333 mls @ 83 mls/hr 05/19/20 12:00 Sodium Chloride IV 05/19/20 18:11 ONCE ONE Insulin Human Lispro 0 unit 05/14/20 07:30 05/19/20 07:30 Humalog SUB-Q Not Given ACHS [facility] Protocol Ondansetron HCl 4 mg 05/14/20 02:37 05/17/20 21:53 Zofran IV 4 mg Q8H PRN Administration Nausea And Vomiting Oxycodone/Acetaminophen 1 tab 05/15/20 14:15 05/16/20 14:48 Percocet 5/325 PO 1 tab Q6H PRN Administration Pain, Moderate (4-6) Sodium Bicarbonate 1,300 mg 05/15/20 14:00 05/19/20 10:41 Sodium Bicarbonate PO 1,300 mg TID GINI Administration Sodium Chloride 10 ml 05/14/20 10:00 05/19/20 10:42 Sodium Chloride Flush Syringe 10 Ml IV 10 ml BID GINI Administration Sodium Chloride 10 ml 05/14/20 02:37 Sodium Chloride Flush Syringe 10 Ml IV PRN PRN LINE FLUSH Vancomycin HCl 125 mg 05/17/20 12:00 05/19/20 05:53 Vancomycin Po PO 05/27/20 06:01 125 mg Q6HR GINI Administration
[2020-05-19 11:50] LABS: Basophils # (Auto) 0.2 K/mm3 (0.0-0.1); Eosinophils # (Auto) 0.7 K/mm3 (0.0-0.4); Eosinophils % (Auto) 3.8 % (0.0-4.3); Hematocrit 32.2 % (30.3-42.9); Hemoglobin 10.4 gm/dl (10.1-14.3); Lymphocytes # (Auto) 2.6 K/mm3 (1.2-5.4); Lymphocytes % (Auto) 13.5 % (13.4-35.0); Mean Corpuscular HGB Conc 32 % (30-34); Mean Corpuscular Volume 90 fl (79-97); Monocytes # (Auto) 1.1 K/mm3 (0.0-0.8); Monocytes % (Auto) 5.4 % (0.0-7.3); Platelet Count 298 K/mm3 (140-440); Red Blood Count 3.57 M/mm3 (3.65-5.03); Red Cell Distribution Width 14.9 % (13.2-15.2)
[2020-05-19] MEDS ORDERED: POTASSIUM PHOSPHATE 40 MMOL in SODIUM CHLORIDE 0.9% 500 ML 500 ML IV ONE (12:00)
--- NOTE | 2020-05-19 14:30 | Gastroenterology Progress Note ---
Assessment and Plan GI: pt presents w/ colitis reports some improvement - reports overall symptoms improved today w/ decrease abdominal pain or diarrhea - noted still high WBC though improving, follow - noted antibiotics per ID - awaiting stool sample for C. diff, pt reports unable to provide stool -encouraged ambulation - follow labs including cbc - no plans to scope at this time - will advance diet slowly - when wbc improved and symptoms stable will be ok to dc from GI standpoint Subjective Date of service: 05/19/20 Principal diagnosis: colitis Interval history: - pt reports overall feeling better. Decrease nausea, vomiting. Denies significant diarrhea Objective - Constitutional Vitals: Temp Pulse Resp BP Pulse Ox 97.3 F L 83 16 104/50 97 05/19/20 04:38 05/19/20 04:38 05/19/20 04:38 05/19/20 04:38 05/19/20 04:38 General appearance: no acute distress - EENT Eyes: PERRL - Respiratory Respiratory: bilateral: CTA - Cardiovascular Rhythm: regular Heart Sounds: Present: S1 & S2 - Gastrointestinal General gastrointestinal: Present: soft, non-tender, non-distended - Labs CBC & Chem 7: 05/19/20 11:14 05/19/20 06:30 Labs: Laboratory Results - last 24 hr 05/18/20 05/18/20 05/18/20 08:48 13:00 17:04 WBC RBC Hgb Hct MCV MCH MCHC RDW Plt Count Lymph % (Auto) [place] % (Auto) Eos % (Auto) Baso % (Auto) Lymph # (Auto) [place] # (Auto) Eos # (Auto) Baso # (Auto) Seg Neutrophils % Seg Neutrophils # Sodium Potassium Chloride Carbon Dioxide Anion Gap BUN Creatinine Estimated GFR BUN/Creatinine Ratio Glucose POC Glucose 240 H 167 H 159 H Calcium Phosphorus 05/18/20 05/19/20 05/19/20 22:05 06:30 08:17 WBC RBC Hgb Hct MCV MCH MCHC RDW Plt Count Lymph % (Auto) [place] % (Auto) Eos % (Auto) Baso % (Auto) Lymph # (Auto) [place] # (Auto) Eos # (Auto) Baso # (Auto) Seg Neutrophils % Seg Neutrophils # Sodium 140 Potassium 3.0 L Chloride 106.4 Carbon Dioxide 24 Anion Gap 13 BUN 23 H Creatinine 0.9 Estimated GFR > 60 BUN/Creatinine Ratio 26 Glucose 101 H POC Glucose 189 H 98 Calcium 7.4 L Phosphorus 1.50 L 05/19/20 05/19/20 11:14 11:40 WBC 19.5 H RBC 3.57 L Hgb 10.4 Hct 32.2 MCV 90 MCH 29 MCHC 32 RDW 14.9 Plt Count 298 Lymph % (Auto) 13.5 [place] % (Auto) 5.4 Eos % (Auto) 3.8 Baso % (Auto) 1.0 Lymph # (Auto) 2.6 [place] # (Auto) 1.1 H Eos # (Auto) 0.7 H Baso # (Auto) 0.2 H Seg Neutrophils % 76.3 H Seg Neutrophils # 14.8 H Sodium Potassium Chloride Carbon Dioxide Anion Gap BUN Creatinine Estimated GFR BUN/Creatinine Ratio Glucose POC Glucose 142 H Calcium Phosphorus
--- NOTE | 2020-05-19 16:34 | Progress Note ---
Assessment and Plan Assessment and plan: --Hypophosphatemia; Current Visit: Yes Status: Acute Plan to address problem: replenish with sodium phosphate Monitor electrolytes --Patient has history of C. difficile in the past; Current Visit: Yes Status: Acute Plan to address problem: ID recommend oral vancomycin Contact isolation, supportive care --Acute colitis Current Visit: Yes Status: Acute Plan to address problem: CT abdomen findings reviewed ID feels this is because of C. difficile colitis advised to stop Flagyl and Levaquin Started vancomycin oral total 14 days ID and GI following, clear liquid diet Advanced as tolerated --Leukocytosis; WBC 30 K-22.2-21.0-19.5 Current Visit: Yes Status: Acute Plan to address problem: secondary to sepsis, C. difficile colitis WBC trending down, cultures negative to date --Abdominal pain Current Visit: Yes Status: Acute Plan to address problem: Secondary to colitis, pain medications On antibiotics, mild improvement -- Hypotension; present on admission Current Visit: Yes Status: Acute Plan to address problem: Significantly improved blood pressures reasonable range I will continue IV fluids flow rate Fluid bolus if needed supportive care --Hyponatremia; mild improvement Current Visit: Yes Status: Acute Plan to address problem: Na level gradually improved from 1 25-1 35 Continue IV normal saline, closely monitor electrolytes --Severe malnutrition; due to underlying colitis Treat the underlying cause Supportive care nutrition supplements when patient is able to take oral --Acute kidney injury Current Visit: Yes Status: Acute Plan to address problem: Possibly prerenal acidemia, vasomotor nephropathy. IV hydration, monitor renal function, avoid nephrotoxins Significant improvement, cr improved from 3.3-1.5 Nephrology following --Patient gives h/o fall in the bathroom in ER; Current Visit: Yes Status: Acute Plan to address problem: superficial abrasions right upper extremity Significantly improved --DVT prophylaxis Current Visit: Yes Status: Acute Plan to address problem: Patient placed on subcutaneous heparin --Full code status Current Visit: Yes Status: Acute Monitor closely and adjust management as needed Plan of care reviewed with the patient and her nurse Possible discharge in 1 -2 days if stable . I called patient's [id number] Ms. Fine on 05/16/2020 at [phone] and discussed in detail patient's condition treatment plan .Answered all her questions Possible discharge home tomorrow if stable History Interval history: I have seen and examined the patient at the bedside today Patient's chart and medications reviewed. Diarrhea significantly improved WBC still elevated trending down Patient complains of generalized weakness Vital signs noted Hospitalist Physical - Constitutional Vitals: Temp Pulse Resp BP Pulse Ox 97.3 F L 83 16 104/50 97 05/19/20 04:38 05/19/20 04:38 05/19/20 04:38 05/19/20 04:38 05/19/20 04:38 General appearance: Present: mild distress, well-nourished, obese - EENT Eyes: Present: PERRL, EOM intact - Neck Neck: Present: supple, normal ROM - Respiratory Respiratory effort: normal Respiratory: bilateral: diminished, negative: rales, rhonchi, wheezing - Cardiovascular Rhythm: regular Heart Sounds: Present: S1 & S2 - Extremities Extremities: no ischemia, No edema - Abdominal General gastrointestinal: soft, non-tender, non-distended, normal bowel sounds - Integumentary Integumentary: Present: clear, warm - Psychiatric Psychiatric: appropriate mood/affect, cooperative - Neurologic Neurologic: moves all extremities Results - Labs CBC & Chem 7: 05/19/20 11:14 05/19/20 06:30 Labs: Laboratory Last Values WBC 19.5 K/mm3 (4.5-11.0) H 05/19/20 11:14 RBC 3.57 M/mm3 (3.65-5.03) L 05/19/20 11:14 Hgb 10.4 gm/dl (10.1-14.3) 05/19/20 11:14 Hct 32.2 % (30.3-42.9) 05/19/20 11:14 MCV 90 fl (79-97) 05/19/20 11:14 MCH 29 pg (28-32) 05/19/20 11:14 MCHC 32 % (30-34) 05/19/20 11:14 RDW 14.9 % (13.2-15.2) 05/19/20 11:14 Plt Count 298 K/mm3 (140-440) 05/19/20 11:14 Lymph % (Auto) 13.5 % (13.4-35.0) 05/19/20 11:14 [place] % (Auto) 5.4 % (0.0-7.3) 05/19/20 11:14 Eos % (Auto) 3.8 % (0.0-4.3) 05/19/20 11:14 Baso % (Auto) 1.0 % (0.0-1.8) 05/19/20 11:14 Lymph # (Auto) 2.6 K/mm3 (1.2-5.4) 05/19/20 11:14 [place] # (Auto) 1.1 K/mm3 (0.0-0.8) H 05/19/20 11:14 Eos # (Auto) 0.7 K/mm3 (0.0-0.4) H 05/19/20 11:14 Baso # (Auto) 0.2 K/mm3 (0.0-0.1) H 05/19/20 11:14 Add Manual Diff Complete 05/16/20 08:59 Total Counted 100 05/16/20 08:59 Seg Neutrophils % 76.3 % (40.0-70.0) H 05/19/20 11:14 Seg Neuts % (Manual) 87.0 % (40.0-70.0) H 05/16/20 08:59 Band Neutrophils % 4.0 % 05/16/20 08:59 Lymphocytes % (Manual) 6.0 % (13.4-35.0) L 05/16/20 08:59 Reactive Lymphs % (Man) 0 % 05/16/20 08:59 Monocytes % (Manual) 1.0 % (0.0-7.3) 05/16/20 08:59 Eosinophils % (Manual) 2.0 % (0.0-4.3) 05/16/20 08:59 Basophils % (Manual) 0 % (0.0-1.8) 05/16/20 08:59 Metamyelocytes % 0 % 05/16/20 08:59 Myelocytes % 0 % 05/16/20 08:59 Promyelocytes % 0 % 05/16/20 08:59 Blast Cells % 0 % 05/16/20 08:59 Nucleated RBC % Not Reportable 05/16/20 08:59 Seg Neutrophils # 14.8 K/mm3 (1.8-7.7) H 05/19/20 11:14 Seg Neutrophils # Man 18.3 K/mm3 (1.8-7.7) H 05/16/20 08:59 Band Neutrophils # 0.8 K/mm3 05/16/20 08:59 Lymphocytes # (Manual) 1.3 K/mm3 (1.2-5.4) 05/16/20 08:59 Abs React Lymphs (Man) 0.0 K/mm3 05/16/20 08:59 Monocytes # (Manual) 0.2 K/mm3 (0.0-0.8) 05/16/20 08:59 Eosinophils # (Manual) 0.4 K/mm3 (0.0-0.4) 05/16/20 08:59 Basophils # (Manual) 0.0 K/mm3 (0.0-0.1) 05/16/20 08:59 Metamyelocytes # 0.0 K/mm3 05/16/20 08:59 Myelocytes # 0.0 K/mm3 05/16/20 08:59 Promyelocytes # 0.0 K/mm3 05/16/20 08:59 Blast Cells # 0.0 K/mm3 05/16/20 08:59 WBC Morphology Not Reportable 05/16/20 08:59 Hypersegmented Neuts Not Reportable 05/16/20 08:59 Hyposegmented Neuts Not Reportable 05/16/20 08:59 Hypogranular Neuts Not Reportable 05/16/20 08:59 Smudge Cells Not Reportable 05/16/20 08:59 Toxic Granulation Not Reportable 05/16/20 08:59 Toxic Vacuolation Not Reportable 05/16/20 08:59 Dohle Bodies Not Reportable 05/16/20 08:59 Pelger-Huet Anomaly Not Reportable 05/16/20 08:59 Jaycee Rods Not Reportable 05/16/20 08:59 Platelet Estimate Consistent w auto 05/16/20 08:59 Clumped Platelets Not Reportable 05/16/20 08:59 Plt Clumps, EDTA Not Reportable 05/16/20 08:59 Large Platelets Not Reportable 05/16/20 08:59 Giant Platelets Not Reportable 05/16/20 08:59 Platelet Satelliting Not Reportable 05/16/20 08:59 Plt Morphology Comment Not Reportable 05/16/20 08:59 RBC Morphology Normal 05/16/20 08:59 Dimorphic RBCs Not Reportable 05/16/20 08:59 Polychromasia Not Reportable 05/16/20 08:59 Hypochromasia Not Reportable 05/16/20 08:59 Poikilocytosis Not Reportable 05/16/20 08:59 Anisocytosis Not Reportable 05/16/20 08:59 Microcytosis Not Reportable 05/16/20 08:59 Macrocytosis Not Reportable 05/16/20 08:59 Spherocytes Not Reportable 05/16/20 08:59 Pappenheimer Bodies Not Reportable 05/16/20 08:59 Sickle Cells Not Reportable 05/16/20 08:59 Target Cells Not Reportable 05/16/20 08:59 Tear Drop Cells Not Reportable 05/16/20 08:59 Ovalocytes Not Reportable 05/16/20 08:59 Helmet Cells Not Reportable 05/16/20 08:59 Connor-Justice Bodies Not Reportable 05/16/20 08:59 [place] Rings Not Reportable 05/16/20 08:59 Dirk Cells Not Reportable 05/16/20 08:59 Bite Cells Not Reportable 05/16/20 08:59 Crenated Cell Not Reportable 05/16/20 08:59 Elliptocytes Not Reportable 05/16/20 08:59 Acanthocytes (Spur) Not Reportable 05/16/20 08:59 Rouleaux Not Reportable 05/16/20 08:59 Hemoglobin C Crystals Not Reportable 05/16/20 08:59 Schistocytes Not Reportable 05/16/20 08:59 Malaria parasites Not Reportable 05/16/20 08:59 Jenaro Bodies Not Reportable 05/16/20 08:59 Hem Pathologist Commnt No 05/16/20 08:59 PT 15.1 Sec. (12.2-14.9) H 05/15/20 04:44 INR 1.17 (0.87-1.13) H 05/15/20 04:44 Sodium 140 mmol/L (137-145) 05/19/20 06:30 Potassium 3.0 mmol/L (3.6-5.0) L 05/19/20 06:30 Chloride 106.4 mmol/L (98-107) 05/19/20 06:30 Carbon Dioxide 24 mmol/L (22-30) 05/19/20 06:30 Anion Gap 13 mmol/L 05/19/20 06:30 BUN 23 mg/dL (7-17) H 05/19/20 06:30 Creatinine 0.9 mg/dL (0.6-1.2) 05/19/20 06:30 Estimated GFR > 60 ml/min 05/19/20 06:30 BUN/Creatinine Ratio 26 % 05/19/20 06:30 Glucose 101 mg/dL (65-100) H 05/19/20 06:30 POC Glucose 142 mg/dL (70-105) H 05/19/20 11:40 Lactic Acid 1.90 mmol/L (0.7-2.0) 05/14/20 05:35 Calcium 7.4 mg/dL (8.4-10.2) L 05/19/20 06:30 Phosphorus 1.50 mg/dL (2.5-4.5) L 05/19/20 06:30 Magnesium 1.80 mg/dL (1.7-2.3) 05/16/20 08:59 Total Bilirubin 0.50 mg/dL (0.1-1.2) 05/16/20 08:59 AST 48 units/L (5-40) H 05/16/20 08:59 ALT 23 units/L (7-56) 05/16/20 08:59 Alkaline Phosphatase 91 units/L (35-129) 05/16/20 08:59 Total Protein 4.6 g/dL (6.3-8.2) L D 05/16/20 08:59 Albumin 2.5 g/dL (3.9-5) L 05/16/20 08:59 Albumin/Globulin Ratio 1.2 % 05/16/20 08:59 Urine Color Yellow (Yellow) 05/14/20 02:08 Urine Turbidity Clear (Clear) 05/14/20 02:08 Urine pH 5.0 (5.0-7.0) 05/14/20 02:08 Ur Specific [place] 1.014 (1.003-1.030) 05/14/20 02:08 Urine Protein <15 mg/dl mg/dL (Negative) 05/14/20 02:08 Urine Glucose (UA) 50 mg/dL (Negative) 05/14/20 02:08 Urine Ketones Neg mg/dL (Negative) 05/14/20 02:08 Urine Blood Sm (Negative) 05/14/20 02:08 Urine Nitrite Neg (Negative) 05/14/20 02:08 Urine Bilirubin Neg (Negative) 05/14/20 02:08 Urine Urobilinogen < 2.0 mg/dL (<2.0) 05/14/20 02:08 Ur Leukocyte Esterase Neg (Negative) 05/14/20 02:08 Urine WBC (Auto) < 1.0 /HPF (0.0-6.0) 05/14/20 02:08 Urine RBC (Auto) 2.0 /HPF (0.0-6.0) 05/14/20 02:08 U Epithel Cells (Auto) < 1.0 /HPF (0-13.0) 05/14/20 02:08 Hyaline Casts 1 /LPF 05/14/20 02:08 Urine Mucus Few /HPF 05/14/20 02:08 Microbiology: Microbiology 05/13/20 23:25 Peripheral/Venous Blood Culture - Final NO GROWTH AFTER 5 DAYS 05/13/20 23:25 Peripheral/Venous Blood Culture - Final NO GROWTH AFTER 5 DAYS Mix/IV: Voiding Method Bedside Commode IV Catheter Type [Left Forearm Peripheral IV ] IV Catheter Type [Left Hand] INT / Saline Lock IV Catheter Type [Left INT / Saline Lock Antecubital] Active Medications - Current Medications Current Medications: Generic Name Dose Route Start Last Admin Trade Name Freq PRN Reason Stop Dose Admin Acetaminophen 650 mg 05/14/20 02:37 05/16/20 22:51 Tylenol PO 650 mg Q4H PRN Administration Pain MILD(1-3)/Fever >100.5/CORDOVA Alprazolam 0.5 mg 05/18/20 22:02 05/18/20 23:02 Xanax PO 0.5 mg HS PRN Administration Anxiety Dextrose 50 ml 05/14/20 02:37 D50w (25gm) Syringe IV Q30MIN PRN Hypoglycemia Protocol Glipizide 10 mg 05/16/20 17:00 05/19/20 10:41 Glucotrol PO 10 mg BIDDIAB GINI Administration Heparin Sodium (Porcine) 5,000 unit 05/14/20 14:00 05/19/20 15:09 Heparin SUB-Q 5,000 unit Q8HR GINI Administration Potassium Phosphate 40 mmol/ 513.3333 mls @ 83 mls/hr 05/19/20 12:00 05/19/20 15:26 Sodium Chloride IV 05/19/20 18:11 83 mls/hr ONCE ONE Administration Insulin Human Lispro 0 unit 05/14/20 07:30 05/19/20 11:30 Humalog SUB-Q Not Given ACHS [facility] Protocol Ondansetron HCl 4 mg 05/14/20 02:37 05/17/20 21:53 Zofran IV 4 mg Q8H PRN Administration Nausea And Vomiting Oxycodone/Acetaminophen 1 tab 05/15/20 14:15 05/16/20 14:48 Percocet 5/325 PO 1 tab Q6H PRN Administration Pain, Moderate (4-6) Sodium Bicarbonate 1,300 mg 05/15/20 14:00 05/19/20 15:09 Sodium Bicarbonate PO 1,300 mg TID GINI Administration Sodium Chloride 10 ml 05/14/20 10:00 05/19/20 10:42 Sodium Chloride Flush Syringe 10 Ml IV 10 ml BID GINI Administration Sodium Chloride 10 ml 05/14/20 02:37 Sodium Chloride Flush Syringe 10 Ml IV PRN PRN LINE FLUSH Vancomycin HCl 125 mg 05/17/20 12:00 05/19/20 15:08 Vancomycin Po PO 05/27/20 06:01 125 mg Q6HR GINI Administration Nutrition/Malnutrition Assess - Dietary Evaluation Nutrition/Malnutrition Findings: Nutrition Notes Start: 05/14/20 13:34 Freq: Status: Active Protocol: Document 05/19/20 13:22 AB (Rec: 05/19/20 13:32 AB [id number]) Co-Sign 05/19/20 13:22 MK Nutrition Notes Initial or Follow up Reassessment Current Diagnosis Acute Kidney Injury,Diabetes, Sepsis,Hypertension Other Pertinent Diagnosis Renal Failure, Hypotension, Colitis, Gastritis, Abd pain Current Diet GI soft Labs/Tests BUN 23 BG 101 Phos 1.5 Pertinent Medications Reviewed Height 5 ft 2 in Weight 97.3 kg [place] Body Weight (kg) 50.00 BMI 39.2 Weight Status Obese Subjective/Other Information F/U for diet advancement and diet education. Pt eating 100% of meals and does not have N/ V/D/C per RN. Pt refused diet education. Percent of energy/protein needs met: 100%/100% Burn Absent Trauma Absent GI Symptoms None Food Allergy Yes Current % PO Good (75-100%) Minimum of two criteria No physical signs of malnutrition #1 Nutrition Diagnosis Inadequate oral intake As Evidenced by Signs and Symptoms Pt appetite has increased and is consuming 100% of meals Diagnosis Progress(for reassessment Improved documentation) Is patient on ventilator? No Is Patient Ambulatory and/or Out of Bed Yes REE-(White-St. Jeor-ambulatory/OOB) [ 1873.625 NUTR.[id number]] Kcal/Kg value to use for calculation 16 Approximate Energy Requirements Using 1557 kcal/Kg Calculation Used for Recommendations Kcal/kg Additional Notes Protein: 55-85 g/day (0.8-1.2 g/kg) Fluid: 1 ml/kcal Nutrition Intervention Goal #1 Consume at least 75% of calorie and protein via PO intakes Anticipated Discharge Needs: GI soft diet Follow-Up By: 05/21/20 Additional Comments F/U for intakes
--- NOTE | 2020-05-19 16:34 | Discharge Summary ---
Providers - Providers Date of Admission: 05/14/20 02:28 Date of discharge: 05/19/20 Attending physician: ANCA BONILLA 05/14/20 02:37 Consult to Dietitian/Nutrition [CONS] Routine Physician Instructions: Reason For Exam: Reason for Consult: Diet education Consult to Physician [CONS] Routine Comment: Consulting Provider: GODWIN BROWN Physician Instructions: Reason For Exam: Sepsis,Colitis 05/14/20 02:43 Consult to Physician [CONS] Routine Comment: Consulting Provider: MO MORATAYA Physician Instructions: Reason For Exam: [place] 05/14/20 08:52 Consult to Physician [CONS] Routine Comment: Consulting Provider: VLADIMIR NAVA Physician Instructions: Reason For Exam: Acute colitis/abdominal pain 05/15/20 13:59 Physical Therapy Evaluation and Treat [CONS] Routine Comment: Reason For Exam: genera;ozed weakness 05/15/20 19:10 Consult to Wound/ET Nurse [CONS] Routine Reason For Exam: right arm 05/17/20 11:52 Occupational Therapy Evaluate and Treat [CONS] Routine Comment: Reason For Exam: weakness Primary care physician: OFFICIAL GREETER Hospitalization Condition: Critical Disposition: DC-30 STILL A PATIENT Exam - Constitutional Vitals: Temp Pulse Resp BP Pulse Ox 97.3 F L 83 16 104/50 97 05/19/20 04:38 05/19/20 04:38 05/19/20 04:38 05/19/20 04:38 05/19/20 04:38 Plan Follow up with: PRIMARY CARE, [Primary Care Provider] - 3-5 Days
[2020-05-20] MEDS: VANCOMYCIN 250 MG/10 ML ORAL LIQD PO SCH ×4 (00:49→15:18)
[2020-05-20] MEDS: HEPARIN 5,000 UNIT/1 ML VIAL SUB-Q SCH ×2 (05:37→15:18)
[2020-05-20 08:54] LABS: BUN/Creatinine Ratio 29; Blood Urea Nitrogen 23 mg/dL (7-17); Calcium 7.6 mg/dL (8.4-10.2); Hemolysis Index 45
[2020-05-20] MEDS: INSULIN LISPRO 100 UNIT/ML VIAL 3 mL SUB-Q SCH ×2 (09:17→15:10)
[2020-05-20] MEDS ORDERED: POTASSIUM CHLORIDE ER 20 MEQ TAB PO NR (09:19)
--- NOTE | 2020-05-20 09:20 | Discharge Summary ---
Providers - Providers Date of Admission: 05/14/20 02:28 Date of discharge: 05/20/20 Attending physician: ANCA BONILLA 05/14/20 02:37 Consult to Dietitian/Nutrition [CONS] Routine Physician Instructions: Reason For Exam: Reason for Consult: Diet education Consult to Physician [CONS] Routine Comment: Consulting Provider: GODWIN BROWN Physician Instructions: Reason For Exam: Sepsis,Colitis 05/14/20 02:43 Consult to Physician [CONS] Routine Comment: Consulting Provider: MO MORATAYA Physician Instructions: Reason For Exam: WESLEY 05/14/20 08:52 Consult to Physician [CONS] Routine Comment: Consulting Provider: VLADIMIR NAVA Physician Instructions: Reason For Exam: Acute colitis/abdominal pain 05/15/20 13:59 Physical Therapy Evaluation and Treat [CONS] Routine Comment: Reason For Exam: genera;ozed weakness 05/15/20 19:10 Consult to Wound/ET Nurse [CONS] Routine Reason For Exam: right arm 05/17/20 11:52 Occupational Therapy Evaluate and Treat [CONS] Routine Comment: Reason For Exam: weakness Primary care physician: WATERMASTER Hospitalization Reason for admission: Abdominal pain/acute colitis Condition: Stable Pertinent studies: CT abdomen pelvis: Colitis from the splenic flexure to the rectum. KUB abdomen; no acute abnormality Hospital course: 69-year-old female patient was admitted through emergency room with abdominal pain and diarrhea of 4 weeks duration Was since yesterday, patient was initially evaluated in the ED, CT abdomen and pelvis show colitis from splenic flexure to the rectum Patient initially was placed n.p.o., started IV antibiotics and IV fluids, evaluated by GI as well as ID Patient symptoms slightly improved, patient gives history of C. difficile colitis in the past, as patient has continues diarrhea ID discontinued Levaquin and Flagyl and started on oral vancomycin. Contact isolation was observed Patient reported she had a fall in the ER bathroom in the waiting area, as superficial abrasions of the arm Wound care following. Patient has severe leukosis probably secondary to C. difficile colitis, is trending down Patient symptoms significantly improved,Today patient is comfortable no new complaints vital signs stable physical examinations unremarkable except for generalized weakness and intermittent diarrhea ID cleared the patient for discharge on total 14 days of oral vancomycin 125 mg 4 times a day And follow-up with ID, GI and primary care physicians per schedule Patient is stable at discharge, case management to assist with discharge planning --Discharge diagnosis; --C. difficile colitis --Abdominal pain --History of fall superficial abrasions/wound care --Hypophosphatemia; improved --Hyponatremia; resolved --Hypokalemia; resolved --Severe malnutrition; nutrition supplements Patient is stable at discharge Cleared by ID nephrology GI Disposition: - TO HOME OR SELFCARE Time spent for discharge: 33 min Core Measure Documentation - Palliative Care Palliative Care/ Comfort Measures: Not Applicable - Core Measures Any of the following diagnoses?: none Exam - Constitutional Vitals: Temp Pulse Resp BP Pulse Ox 99.0 F 85 18 149/74 95 05/20/20 06:01 05/20/20 06:01 05/20/20 06:01 05/20/20 06:01 05/20/20 06:01 General appearance: Present: no acute distress, well-nourished - EENT Eyes: Present: PERRL, EOM intact - Neck Neck: Present: supple, normal ROM - Respiratory Respiratory effort: normal Respiratory: bilateral: diminished, negative: rales, rhonchi, wheezing - Cardiovascular Rhythm: regular Heart Sounds: Present: S1 & S2 - Extremities Extremities: no ischemia, No edema - Abdominal General gastrointestinal: Present: soft, non-tender, non-distended, normal bowel sounds - Integumentary Integumentary: Present: clear, warm - Musculoskeletal Musculoskeletal: strength equal bilaterally, generalized weakness - Psychiatric Psychiatric: appropriate mood/affect, cooperative - Neurologic Neurologic: moves all extremities Plan Activity: advance as tolerated, fall precautions Diet: advance as tolerated, other (Soft diet) Additional Instructions: Soft diet, advance as tolerated. If you have worsening symptoms contact MD or go to emergency room. Advised to follow with GI in 4-6 weeks, advised to follow ID in 2 weeks Follow up with: PRIMARY CARE, [Primary Care Provider] - 3-5 Days GODWIN BROWN MD [Staff Physician] - 14 Days RUI SEGURA MD [Staff Physician] - 6 Weeks Prescriptions: oxyCODONE /ACETAMINOPHEN [Percocet 5/325 mg] 1 tab PO BID PRN #8 tablet PRN Reason: Pain, Moderate (4-6) Pantoprazole [Protonix] 40 mg PO QDAY #30 tablet Vancomycin HCl 125 mg PO QID #44 capsule
--- NOTE | 2020-05-20 10:14 | Progress Note ---
Assessment and Plan Cultures: Blood culture 05/13/2020 no growth today A/P: 69-year-old female past medical history diabetes, hypertension admitted with colitis #Acute sepsis: Remains with fever, secondary to colitis. #Colitis: Patient reported history of C. difficile colitis 5 years ago. Patient is not better on antibiotics/fever continues. However her diarrhea resolved. #Diabetes: tight glycemic control for best outcomes. #WESLEY on CKD: Renally dose antibiotics Recs: -C. difficile stool tests not collected since diarrhea improved, cancelled -Continue vancomycin 125 mg p.o. 4 times daily total 14 days -Ok to d/c -ID clinic f/u in 2 weeks Rhonda Madrid MD [facility] ([facility]) Office [phone] Subjective Date of service: 05/20/20 Principal diagnosis: colitis Interval history: Patient feels much better, no fever, no diarrhea. Objective - Exam Narrative Exam: General appearance: Alert in NAD Eyes: anicteric sclerae, moist conjunctivae; no lid-lag; PERRLA HENT: Atraumatic; oropharynx clear Lungs: CTA, with normal respiratory effort and no intercostal retractions CV: RRR no murmur Abdomen: Soft, distended, nontender Extremities: no edema, no cyanosis Skin: Bilateral arms with ecchymosis Psych: Appropriate affect, alert and oriented to person, place and time. Neuro: alert and oriented x 3. Moving all extermities - Constitutional Vitals: Vital Signs Temp Pulse Resp BP Pulse Ox 99.0 F 85 18 149/74 95 05/20/20 06:01 05/20/20 06:01 05/20/20 06:01 05/20/20 06:01 05/20/20 06:01 Temperature -Last 24 Hours Temperature 99.0 F Temperature 97.7 F Temperature 98.3 F Temperature 98.9 F - Labs CBC & Chem 7: 05/19/20 11:14 05/20/20 07:41 Labs: Abnormal lab results 05/19/20 05/19/20 05/19/20 Range/Units 11:14 11:40 17:57 WBC 19.5 H (4.5-11.0) K/mm3 RBC 3.57 L (3.65-5.03) M/mm3 [place] # (Auto) 1.1 H (0.0-0.8) K/mm3 Eos # (Auto) 0.7 H (0.0-0.4) K/mm3 Baso # (Auto) 0.2 H (0.0-0.1) K/mm3 Seg Neutrophils % 76.3 H (40.0-70.0) % Seg Neutrophils # 14.8 H (1.8-7.7) K/mm3 Potassium (3.6-5.0) mmol/L BUN (7-17) mg/dL POC Glucose 142 H 197 H (70-105) mg/dL Calcium (8.4-10.2) mg/dL 05/19/20 05/20/20 Range/Units 23:03 07:41 WBC (4.5-11.0) K/mm3 RBC (3.65-5.03) M/mm3 [place] # (Auto) (0.0-0.8) K/mm3 Eos # (Auto) (0.0-0.4) K/mm3 Baso # (Auto) (0.0-0.1) K/mm3 Seg Neutrophils % (40.0-70.0) % Seg Neutrophils # (1.8-7.7) K/mm3 Potassium 3.5 L (3.6-5.0) mmol/L BUN 23 H (7-17) mg/dL POC Glucose 138 H (70-105) mg/dL Calcium 7.6 L (8.4-10.2) mg/dL
[2020-05-20] MEDS: glipiZIDE 10 MG TAB PO SCH ×2 (10:23→10:24)
[2020-05-20] MEDS: SODIUM BICARBONATE 650 MG TAB PO SCH ×2 (10:24→15:18)
[2020-05-20 14:11] VITALS: BP 176/75
--- NOTE | 2020-05-20 14:25 | Gastroenterology Progress Note ---
Assessment and Plan GI: resolving colitis - complete antibiotics as per ID - diet as tolerated - ok to dc Subjective Date of service: 05/20/20 Principal diagnosis: colitis Interval history: - reports tolerating po better. Decrease GI symptoms Objective - Constitutional Vitals: Temp Pulse Resp BP Pulse Ox 98.1 F 91 H 17 176/75 97 05/20/20 10:58 05/20/20 10:58 05/20/20 10:58 05/20/20 10:58 05/20/20 10:58 General appearance: no acute distress - EENT Eyes: PERRL - Respiratory Respiratory: bilateral: CTA - Cardiovascular Rhythm: regular Heart Sounds: Present: S1 & S2 - Gastrointestinal General gastrointestinal: Present: soft, non-tender, non-distended - Labs CBC & Chem 7: 05/19/20 11:14 05/20/20 07:41 Labs: Laboratory Results - last 24 hr 05/19/20 05/19/20 05/20/20 17:57 23:03 07:41 Sodium 138 Potassium 3.5 L Chloride 106.0 Carbon Dioxide 22 Anion Gap 14 BUN 23 H Creatinine 0.8 Estimated GFR > 60 BUN/Creatinine Ratio 29 Glucose 85 POC Glucose 197 H 138 H Calcium 7.6 L Phosphorus 2.60 D 05/20/20 05/20/20 07:51 12:29 Sodium Potassium Chloride Carbon Dioxide Anion Gap BUN Creatinine Estimated GFR BUN/Creatinine Ratio Glucose POC Glucose 83 155 H Calcium Phosphorus
--- NOTE | 2020-05-20 15:12 | Progress Note ---
Assessment and Plan 1. Acute kidney injury: Vasomotor nephropathy in the setting of volume depletion and hypotension. CT abdomen negative for hydro. Monitor renal function. Creatinine level is better. Avoid nephrotoxic agents. Meds dosage based on GFR. 2. FEN: Acute Hyponatremia, 2/2 volume depletion, improved, monitor. Anion-gap Metabolic acidosis, improved, monitor. Replete K. Monitor lytes. 3. Colitis: On Vancomycin. Followed by ID. 4. Severe sepsis, POA: Followed by ID. 5. DM type 2: Accuchecks. 6. Hypertension: Monitor BP and resume home meds as appropriate. Subjective: Patient was seen and examined at the bedside. Doing better. - General Appearance General appearance: well-developed, well-nourished, appears stated age, obese, no distress HEENT: ATNC, KENNETH, hearing intact, vision intact Neck: supple Respiratory: ctab Cardiology: regular, S1S2, no murmur Gastrointestinal: normoactive bowel sounds, no tenderness, not distended Integumentary: no obvious rash Neurologic: no asterixis, alert and oriented x3, able to move extremities Ext: no edema noted Psychiatric: cooperative Subjective Date of service: 05/20/20 Principal diagnosis: colitis Objective - Vital Signs Vital signs: Vital Signs - 12hr 05/20/20 05/20/20 06:01 10:58 Temperature 99.0 F 98.1 F Pulse Rate 85 91 H Respiratory 18 17 Rate Blood Pressure 149/74 176/75 O2 Sat by Pulse 95 97 Oximetry - Lab 05/19/20 11:14 05/20/20 07:41 Most recent lab results Calcium 7.6 mg/dL (8.4-10.2) L 05/20/20 07:41 Phosphorus 2.60 mg/dL (2.5-4.5) D 05/20/20 07:41 Magnesium 1.80 mg/dL (1.7-2.3) 05/16/20 08:59 Medications & Allergies - Medications Allergies/Adverse Reactions: Allergies chicken derived Allergy (Verified 05/16/20 15:14) Swelling morphine Allergy (Verified 05/13/20 22:58) Itching Penicillins Allergy (Verified 05/13/20 22:58) Hives Home Medications: Home Medications Medication Instructions Recorded Confirmed Last Taken Type glipiZIDE 10 mg PO BID 05/15/20 05/15/20 Unknown History hydroCHLOROthiazide [HCTZ] 25 mg PO QDAY 05/15/20 05/15/20 Unknown History lisinopriL [Zestril TAB] 40 mg PO QDAY 05/15/20 05/15/20 Unknown History Pantoprazole [Protonix] 40 mg PO QDAY #30 tablet 05/20/20 Unknown Rx Vancomycin HCl 125 mg PO QID #44 capsule 05/20/20 Unknown Rx oxyCODONE /ACETAMINOPHEN [Percocet 1 tab PO BID PRN #8 tablet 05/20/20 Unknown Rx 5/325 mg] Active Medications: Generic Name Dose Route Start Last Admin Trade Name Freq PRN Reason Stop Dose Admin Acetaminophen 650 mg 05/14/20 02:37 05/16/20 22:51 Tylenol PO 650 mg Q4H PRN Administration Pain MILD(1-3)/Fever >100.5/CORDOVA Alprazolam 0.5 mg 05/18/20 22:02 05/18/20 23:02 Xanax PO 0.5 mg HS PRN Administration Anxiety Dextrose 50 ml 05/14/20 02:37 D50w (25gm) Syringe IV Q30MIN PRN Hypoglycemia Protocol Glipizide 10 mg 05/16/20 17:00 05/20/20 10:24 Glucotrol PO 10 mg BIDDIAB GINI Administration Heparin Sodium (Porcine) 5,000 unit 05/14/20 14:00 05/20/20 05:37 Heparin SUB-Q 5,000 unit Q8HR GINI Administration Insulin Human Lispro 0 unit 05/14/20 07:30 05/20/20 15:10 Humalog SUB-Q Not Given ACHS [facility] Protocol Ondansetron HCl 4 mg 05/14/20 02:37 05/17/20 21:53 Zofran IV 4 mg Q8H PRN Administration Nausea And Vomiting Oxycodone/Acetaminophen 1 tab 05/15/20 14:15 05/16/20 14:48 Percocet 5/325 PO 1 tab Q6H PRN Administration Pain, Moderate (4-6) Sodium Bicarbonate 1,300 mg 05/15/20 14:00 05/20/20 10:24 Sodium Bicarbonate PO 1,300 mg TID GINI Administration Sodium Chloride 10 ml 05/14/20 10:00 05/20/20 10:22 Sodium Chloride Flush Syringe 10 Ml IV 10 ml BID GINI Administration Sodium Chloride 10 ml 05/14/20 02:37 Sodium Chloride Flush Syringe 10 Ml IV PRN PRN LINE FLUSH Vancomycin HCl 125 mg 05/17/20 12:00 05/20/20 05:37 Vancomycin Po PO 05/27/20 06:01 125 mg Q6HR GINI Administration
== END 2020-05-20 19:00 | disposition home or self-care (01) | DRG 871 ==
LOC: ED 20:21 → IMCU 05-14 02:28 → CC1 05-14 19:18 → 3A 05-15 13:00
PROVIDERS: ADMIT Internal Medicine Geriatric Medicine; ATTEND Internal Medicine
DX: A41.9 Sepsis, unspecified organism (principal); N17.0 Acute kidney failure with tubular necrosis; E43 Unspecified severe protein-calorie malnutrition; A09 Infectious gastroenteritis and colitis, unspecified; E87.1 Hypo-osmolality and hyponatremia; I95.9 Hypotension, unspecified; E87.2 Acidosis; R65.20 Severe sepsis without septic shock; N18.9 Chronic kidney disease, unspecified; E11.22 Type 2 diabetes mellitus with diabetic chronic kidney disease; I12.9 Hypertensive chronic kidney disease with stage 1 through stage 4 chronic kidney disease, or unspecified chronic kidney disease; E83.39 Other disorders of phosphorus metabolism; Z88.5 Allergy status to narcotic agent; Z88.0 Allergy status to penicillin; Z79.899 Other long term (current) drug therapy; Z68.39 Body mass index [BMI] 39.0-39.9, adult; Z87.891 Personal history of nicotine dependence
CPT/HCPCS: 36415; 74018; 74176; 80048; 80053; 81001; 82140; 82962; 83735; 84100; 85007; 85025; 85610; 87040; 87086; G0378; J1170; J1200; J1644; J1940; J1956; J2310; J2405; J3370; J7030; J7040; J7042